=== PATIENT | female | born 1935 | race Caucasian/White ===

== ENCOUNTER 2018-04-25 15:07 | Outpatient (RCR) | payer MEDICARE, SELFPAY ==
[2018-04-25 16:22] LABS: International Normalized Ratio 2.1; Prothrombin Time (Protime)PT. 23.4 SECONDS (11.7-14.9)
== END 2018-04-25 16:00 | disposition home or self-care (01) ==
LOC: LAB 15:07
PROVIDERS: Family Provider Family Medicine; PCP Family Medicine; Visit Provider Internal Medicine Cardiovascular Disease
DX: I48.2 Chronic atrial fibrillation (principal); Z79.01 Long term (current) use of anticoagulants
CPT/HCPCS: 36415; 85610

== ENCOUNTER 2018-09-08 09:36 | Emergency (ER) | payer MEDICARE, SELFPAY ==
[2018-09-08 09:38] VITALS: BP 161/72; PULSE 54; RESP 16; TEMP 36.6; O2SAT 97; BMI 25.8
--- NOTE | 2018-09-08 09:55 | VDLE_ITS ---
Reason For Study: LEG PAIN AND SWELLING RIGHT LEFT GSV is normal. GSV is normal. CFV is compressible, spontaneous, phasic, CFV is compressible, spontaneous, phasic, competent and demonstrates normal competent, and demonstrates normal augmentation. augmentation. FV is compressible, spontaneous, phasic, FV is compressible, spontaneous, phasic, competent and demonstrates normal competent and demonstrates normal augmentation. augmentation. POP V is compressible, spontaneous, phasic, POP V is compressible, spontaneous, phasic, competent and demonstrates normal competent and demonstrates normal augmentation. augmentation. T/P Trunk is compressible. T/P Trunk is compressible. PTV is compressible. PTV is compressible. RT PerV is compressible. LT PerV is compressible. Procedure Exam performed portable in ED. A preliminary report was called and/or faxed to Dr. Wooten. Interpretation Summary Deep veins of the lower extremities are bilaterally patent and compressible segmentally. There is no evidence of deep vein thrombosis on either side. Valvular competence appears intact within the proximal deep venous systems bilaterally. The greater saphenous veins appear bilaterally patent and compressible segmentally. Ordering Physician: Phani Wooten Referring Physician: Patel Garcia Performed By: Digna Jensen RVT
--- NOTE | 2018-09-08 09:58 | RAD_ITS ---
STUDY: X-RAY - RIGHT KNEE REASON FOR EXAM: Female, 82 years old. Pain. No known injury. TECHNIQUE: 3 view(s) of the knee. COMPARISON: None. FINDINGS: There is demineralization of the visualized distal femur. There is demineralization of the tibia and fibula. Normal proximal tibiofibular articulation. There is mild degenerative arthrosis of the medial femorotibial compartment. Normal lateral femorotibial compartment. Degenerative spurring along the anterior superior aspect of the patella. There are atherosclerotic calcifications. RAD/Knee 3 Views IMPRESSION: Degenerative arthrosis. The mineralization of the femur and tibia. Electronically Signed: Jamie Terry MD at 10:20 EST Tel [phone], Service support ,
--- NOTE | 2018-09-08 10:00 | ED.DCSUM_ITS ---
- ER Visit Summary Date of Service: 09/08/18 Chief Complaint: Bilateral leg swelling, right medial knee pain History of Present Illness: The patient is a 82 F who presents with the above symptoms. For the past couple weeks she has noted that she has pain in the medial right knee. She has noticed more swelling of her lower legs. She states that she is making blankets for her grandchildren and sat in a stool for most of July but it did not give her any symptoms at that time. She has no history of DVT. She is currently on Coumadin for atrial fibrillation. She denies any trauma. Physical Examination: Vital signs reviewed. Bilateral leg exam reveals symmetrical swelling. There is tenderness palpation of the medial right knee. There is no ecchymosis. No tenderness along the deep venous system. She has 2+ DP pulses. She has full range of motion with pain. Test Results: Bilateral leg ultrasound negative for DVT. Right knee x-ray reveals chronic changes Emergency Department Course and Treatment: Patient has no DVT. No fractures. She will need to use ice, heat and NSAIDs at home. She will continue her Coumadin and will follow up with her PCP. Treatment Plan: [] Disposition: Discharge Impression: Right knee pain, pedal edema This note was generated with [employer] dictation software. It may contain incorrect words, spelling, and punctuation that were not noted in review of the chart prior to signing ED Disposition - Plan for ED Patient: Chief Complaint: Lower Extremity Injury Referrals: Patel Garcia MD [Primary Care Provider] -
--- NOTE | 2018-09-08 10:39 | ED.DEP ---
ED Disposition - Plan for ED Patient: Disposition: Home or Assisted Living Chief Complaint: Lower Extremity Injury Instructions: ED Leg Swelling Unilateral Referrals: Patel Garcia MD [Primary Care Provider] -
[2018-09-08 10:47] VITALS: BP 113/77; PULSE 62; RESP 15; O2SAT 98
== END 2018-09-08 10:48 | disposition home or self-care (01) ==
PROVIDERS: Emergency Provider Emergency Medicine; Family Provider Family Medicine; PCP Family Medicine
DX: R60.0 Localized edema (principal); M25.561 Pain in right knee; I48.91 Unspecified atrial fibrillation; J44.9 Chronic obstructive pulmonary disease, unspecified; I10 Essential (primary) hypertension; Z79.01 Long term (current) use of anticoagulants; Z79.51 Long term (current) use of inhaled steroids; Z79.899 Other long term (current) drug therapy
CPT/HCPCS: 73562; 93970; 99282

== ENCOUNTER 2018-11-25 09:58 | Emergency (ER) | payer MEDICARE, SELFPAY ==
[2018-11-25 09:59] VITALS: BP 148/71; PULSE 70; RESP 20; TEMP 38.3; O2SAT 93; BMI 27.3
--- NOTE | 2018-11-25 10:16 | RAD_ITS ---
STUDY: X-RAY CHEST REASON FOR EXAM: Female, 82 years old. Fever. Productive cough TECHNIQUE: Frontal and lateral views of the chest. COMPARISON: None. FINDINGS: The lungs are clear and expanded. There is no demonstrated pleural abnormality. Normal size heart. Normal mediastinum and kwaku. Normal visualized pulmonary arteries. There is atherosclerotic calcification of the aortic arch with tortuosity. Normal visualized thoracic spine. There is degenerative osteoarthritis of the bilateral shoulders. There is no demonstrated abnormality of the visualized soft tissue structures of the upper abdomen. RAD/Chest PA and Lateral IMPRESSION: Degenerative changes, as described above. No demonstrated acute cardiopulmonary process. Electronically Signed: Davi Cervantes, at 11:19 EDT Tel , Service support ,
[2018-11-25 10:17] VITALS: O2SAT 93
--- NOTE | 2018-11-25 10:17 | ED.VIS.GEN ---
History of Present Illness Chief Complaint: Shortness of Breath Detail of Chief Complaint: Fever and productive cough Informant: Patient Onset: - - Onset last week Timing: Continuous Quality: Fever, runny nose and productive cough Location: Respiratory Current Severity: Mild Maximum Severity: Moderate Worsened by: Dyspnea with exertion Relieved by: Nothing Associated Symptoms: Bulging sensation and had, myalgias Narrative: Patient is an elderly woman with multiple medical problems who presents with respiratory symptoms started last week. She was seen by her primary care physician Dr. Patel Bird and prescribed dose of dexamethasone. She presents because of feeling worse and complaint of fever. She states her cough is productive of brown colored sputum. She does report runny nose. She does report mild discomfort in her head. She denies nausea, vomiting diarrhea. She denies dysuria, frequency, urgency or hematuria. She states she was immunized for the flu. 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 (2) COPD (chronic obstructive pulmonary disease) Status: Chronic (3) Chronic atrial fibrillation Status: Chronic (4) Hypertension Status: Chronic (5) Hypothyroidism Status: Chronic (6) Noncardiac pulmonary edema Status: Chronic (7) Nonrheumatic tricuspid (valve) insufficiency Status: Chronic Past Medical History - Allergies and Home Meds Allergies/Adverse Reactions: Allergies budesonide [From Symbicort] Allergy (Verified 11/25/18 10:03) Unknown diltiazem [From Cardizem] Allergy (Verified 11/25/18 10:03) Unknown formoterol [From Symbicort] Allergy (Verified 11/25/18 10:03) Unknown Primary Care Physician: Patel Garcia MD [Primary Care Provider] - Prior records reviewed: Yes Surgical History: noncontributory Lives: Alone Smoking Status: Never smoker Alcohol: None - Family History Maternal Family History: Family History (Last Reviewed 05/21/18 @ 13:47 by Kirti Richardson) Sister Hypertension Family History: Reports: No pertinent history Review of Systems ROS: - . She General: Reports: Chills, Fever, Malaise. Denies: Sweats Eyes: Denies: Visual changes - bilaterally, Blurred Vision - bilaterally, Diplopia ENT: Denies: Bilateral ear pain, Rhinorrhea, Sore throat Cardiovascular: Denies: Chest pain, Palpitations Respiratory: Reports: Dyspnea, Cough, Sputum, Dyspnea on exertion. Denies: Orthopnea, Paroxysmal nocturnal dyspnea Gastrointestinal: Denies: Abdominal pain, Nausea, Vomiting, Diarrhea, Melena, Hematochezia Genitourinary: Denies: Dysuria, Hematuria, Frequency Musculoskeletal: Reports: Myalgias, Arthralgias Skin: Denies: Rash, Wounds Neurological: Reports: Headache, Weakness - . Endocrine: Denies: Polyuria, Polydipsia - . Hematologic: Denies: Easy bruising, Easy bleeding Physical Exam Vital Signs/Narrative: Vital Signs Temp Pulse Resp BP Pulse Ox 11/25/18 09:59 101 F H 70 20 H 148/71 H 93 Inital Vital Signs reviewed: Yes General: Well nourished, Well developed, No Acute Distress Head: Normocephalic, Atraumatic Eyes: Perrl, EOMI ENT: Moist mucous membranes, No rhinorrhea Neck: Supple, Nontender Cardiovascular: Regular rate, Regular rhythm, No murmurs Respiratory: Rales - Noted bilaterally., Diminished, Decreased Air Movement Abdomen: Soft, Nontender, Nondistended, Normal bowel sounds, No masses. Negative for: Hepatomegaly, Splenomegaly Back: Nontender, Normal Inspection Extremities: Nontender, Edema - 1+ lower extremities and symmetric Skin: Normal color, No rash Neurological: Alert, Oriented x3, Cranial nerves II-XII grossly intact, Normal Strength, Normal Sensation Psychological: Normal affect, Normal Mood Diagnostic/Tx/Re-eval Chest X-Ray - ED: 2 View, Read by ED Physician, Unchanged, Normal, Heart, Bony Structures, No Acute Disease, Chronic Changes Impressions Chest X-Ray 11/25/18 10:16 IMPRESSION: Degenerative changes, as described above. No demonstrated acute cardiopulmonary process. Electronically Signed: Davi Cervantes, at 11:19 EDT Tel , Service support , 11/25/18 10:16 Chest PA and Lateral [RAD] Stat 11/25/18 10:35 Mucosa - Nose Influenza Types A,B Direct FA (LES) - Final Laboratory Results 11/25/18 11/25/18 11/25/18 10:30 10:30 10:30 WBC 13.3 H RBC 4.54 Hgb 14.6 Hct 45.7 MCV 100.7 H MCH 32.2 H MCHC 31.9 L RDW 13.6 RDW Differential 50.0 H Plt Count 234 MPV 11.0 Immature Gran % (Auto) 0.400 Neut % (Auto) 80.3 H Lymph % (Auto) 8.9 L [place] % (Auto) 9.4 Eos % (Auto) 0.8 Baso % (Auto) 0.2 Absolute Neuts (auto) 10.7 H Absolute Lymphs (auto) 1.18 Total Counted Not Reportable Sodium 138 Potassium 3.4 L Chloride 102 Carbon Dioxide 31.0 Anion Gap 5 BUN 15 Creatinine 0.87 Estim Creat Clear Calc 47.65 Est GFR (MDRD) Af Amer 79 Est GFR (MDRD) Non-Af 66 BUN/Creatinine Ratio 17.2 Glucose 91 Lactic Acid 1.1 Calcium 8.4 L Influenza swab was negative. - Rhythm Strip Rhythm Strip: Sinus Rhythm Rate: 84 Ectopy: None - Medical Decision Making Patient presents with respiratory symptoms. Since she is reporting brown colored sputum and there are abnormal auscultatory findings chest x-ray was obtained as well as blood work. Lactate was obtained. If lactate is elevated and there is a source will obtain blood cultures prior to administration of antibiotics. Because she has rhinorrhea, head discomfort myalgias arthralgias will obtain rapid flu screen. Patient walked from her room to the restroom which is approximately 10-15 feet. She desaturated to a pulse ox of 88floor %. Nurse stated she appeared winded Will initiate antibiotics. Since patient becomes hypoxic with walking will contact hospitalist for observation versus full admission to medical surgical floor. Patient informed she has oxygen at home and wears oxygen during the evening. Patient was instructed to wear oxygen if she does any type of activity at home. Antibiotic was changed from IV levofloxacin to p.o. doxycycline. She was and instructed to follow-up with her primary care physician in 2-3 days. ED Disposition - Plan for ED Patient: Disposition: Home or Assisted Living Diagnosis: COPD (chronic obstructive pulmonary disease), snf (current) use of anticoagulants, Chronic atrial fibrillation, Hypertension Instructions: ED Pneumonia Adult Prescriptions: Doxycycline 100 mg PO BID #14 capsule Referrals: Patel Garcia MD [Primary Care Provider] - 3-5 Days
[2018-11-25 10:21] VITALS: BP 150/65; PULSE 66; RESP 18; TEMP 38.3; O2SAT 89
[2018-11-25 10:46] LABS: Absolute Lymphocyte Count 1.18 X10^3/ul (0.83-4.51); Absolute Neutrophil Count 10.7 X10^3/uL (2.0-7.7); Basophil# 0.02 X10^3/uL; Basophil% 0.2 % (0-1); Eosinophils% 0.8 % (0-5); Hematocrit 45.7 % (37-47); Hemoglobin 14.6 g/dl (12.0-15.0); Lymphocyte # 1.18 X10^3/ul (4.0); Lymphocyte % 8.9 % (19-41); Mean Corp Hgb Conc 31.9 g/gl (32-36); Mean Corpuscular Hgb 32.2 pg (27.0-32.0); Mean Corpuscular Volume 100.7 fL (81-99); Monocyte# 1.25 X10^3/uL; Monocyte% 9.4 % (0-10); Neutrophil # 10.72 X10^3/uL (2.7-7.7); Neutrophil % 80.3 % (47-70); POSITIVE COUNT NO; POSITIVE DIFFERENTIAL NO; POSITIVE MORPHOLOGY NO; Platelet Count 234 K/mm3 (150-450); RBC Distribution Width CV 13.6 % (11.6-14.6); Red Blood Count 4.54 M/mm3 (4.2-5.4); White Blood Count 13.3 K/mm3 (4.4-11.0)
[2018-11-25 11:00] LABS: Anion Gap 5 (5-15); BUN 15 mg/dL (7-18); BUN/Creat Ratio 17.2 RATIO (10-20); Calcium,Total 8.4 mg/dL (8.5-10.1); Chloride 102 mmol/L (98-107); Creatinine, Serum 0.87 mg/dL (0.55-1.02); EST Glomerular Filtration Rate 66 mL/min (>60); Est Glom Filt Rate - Afr Amer 79 mL/min (>60); Estimated Creatinine Clearance 47.65 ml/min; Glucose 91 mg/dL (74-106); Potassium 3.4 mmol/L (3.5-5.1); Sodium Level 138 mmol/L (136-145)
[2018-11-25 11:08] LABS: Lactic Acid 1.1 mmol/L (0.4-2.0)
[2018-11-25 11:15] VITALS: O2SAT 94
[2018-11-25] MEDS: Doxycycline 100 MG CAPSULE PO (11:39)
[2018-11-25 11:40] VITALS: BP 136/80; PULSE 64; RESP 18; O2SAT 94
--- NOTE | 2018-11-25 11:53 | CM.ED ---
Social Work Note Discussed case with physician who would like SW to discuss HHC with pt to see if she is interested. Face to face with pt and family and introduced self and role at [facility]. Pt reports that she is already established with [facility] and has a visit on Saturday. Physician updated and pt to be discharged from [facility] ED this date. PLAN: Return home with support of family. COLEEN Bishop, MOOSE
== END 2018-11-25 11:52 | disposition home or self-care (01) ==
PROVIDERS: Emergency Provider Emergency Medicine; Family Provider Family Medicine; PCP Family Medicine
DX: J44.9 Chronic obstructive pulmonary disease, unspecified (principal); I10 Essential (primary) hypertension; I48.2 Chronic atrial fibrillation; E03.9 Hypothyroidism, unspecified; Z79.01 Long term (current) use of anticoagulants; Z79.51 Long term (current) use of inhaled steroids; Z79.899 Other long term (current) drug therapy
CPT/HCPCS: 71046; 80048; 83605; 85025; 87804; 99285; A4216

== ENCOUNTER → 2019-03-24 | Outpatient (CLI) | payer MEDICARE, SELFPAY ==
[2019-03-24 12:31] LABS: Absolute Lymphocyte Count 1.46 X10^3/uL (0.83-4.51); Absolute Neutrophil Count 3.1 X10^3/uL (2.0-7.7); Basophil# 0.02 X10^3/uL; Basophil% 0.4 % (0-1); Eosinophil# 0.17 X10^3/uL; Eosinophils% 3.3 % (0-5); Hematocrit 43.2 % (37-47); Hemoglobin 13.8 g/dL (12.0-15.0); Lymphocyte # 1.46 X10^3/ul (4.0); Mean Corp Hgb Conc 31.9 g/dL (32-36); Mean Corpuscular Hgb 31.3 pg (27.0-32.0); Mean Platelet Vol. 11.5 fl (6.2-12.0); Monocyte# 0.47 X10^3/uL; NRBC Flagged by Analyzer 0 % (0-5); Neutrophil # 3.09 X10^3/uL (2.7-7.7); Neutrophil % 59.1 % (47-70); Platelet Count 200 K/mm3 (150-450); RBC Distribution Width CV 13.6 % (11.6-14.6); RBC Distribution Width SD 49.7 fl (35.1-43.9); Red Blood Count 4.41 M/mm3 (4.2-5.4); White Blood Count 5.2 K/mm3 (4.4-11.0)
[2019-03-24 12:47] LABS: Vitamin B12 1861 pg/mL (211-911); Vitamin D,25 Hydroxy 44.1 ng/mL (29.95-100.01)
[2019-03-24 12:49] LABS: ALB/GLOB Ratio 1.1 RATIO (0.9-2.4); AST(SGOT) 19 U/L (15-37); Alanine Aminotransfer ALT/SGPT 20 U/L (13-56); Albumin, Serum 3.6 g/dL (3.2-5.0); Alkaline Phosphatase 78 U/L (45-117); Anion Gap 6 (5-15); BUN 10 mg/dL (7-18); BUN/Creat Ratio 11.6 RATIO (10-20); Calcium,Total 8.6 mg/dL (8.5-10.1); Chloride 106 mmol/L (98-107); Creatinine, Serum 0.86 mg/dL (0.55-1.02); EST Glomerular Filtration Rate 67 mL/min (>60); Est Glom Filt Rate - Afr Amer 81 mL/min (>60); Globulin 3.4 g/dL (2.2-4.2); Glucose 76 mg/dL (74-106); Magnesium 2.1 mg/dL (1.6-2.6); Potassium 3.4 mmol/L (3.5-5.1); Sodium Level 145 mmol/L (136-145); T4 Free Direct 1.66 ng/dL (0.76-1.46); Thyroid Stim Hormone (TSH) 2.93 uIU/mL (0.358-3.74)
== END | disposition home or self-care (01) ==
LOC: BFHLAB 10:42
PROVIDERS: Family Provider Family Medicine; PCP Family Medicine; Visit Provider Family Medicine
DX: I48.91 Unspecified atrial fibrillation (principal); E03.9 Hypothyroidism, unspecified; E53.8 Deficiency of other specified B group vitamins; E55.9 Vitamin D deficiency, unspecified
CPT/HCPCS: 36415; 80053; 82306; 82607; 83735; 84439; 84443; 85025

== ENCOUNTER → 2019-06-22 | Outpatient (CLI) | payer MEDICARE, SELFPAY ==
[2019-06-22 12:37] LABS: Absolute Lymphocyte Count 1.15 X10^3/uL (0.83-4.51); Absolute Neutrophil Count 2.9 X10^3/uL (2.0-7.7); Basophil# 0.02 X10^3/uL; Basophil% 0.4 % (0-1); Eosinophil# 0.18 X10^3/uL; Eosinophils% 3.9 % (0-5); Hematocrit 39.5 % (37-47); Hemoglobin 12.6 g/dL (12.0-15.0); Lymphocyte # 1.15 X10^3/ul (4.0); Lymphocyte % 24.8 % (19-41); Mean Corp Hgb Conc 31.9 g/dL (32-36); Mean Corpuscular Hgb 32.2 pg (27.0-32.0); Mean Platelet Vol. 11.8 fl (6.2-12.0); Monocyte# 0.42 X10^3/uL; Monocyte% 9.1 % (0-10); NRBC Flagged by Analyzer 0 % (0-5); Neutrophil # 2.85 X10^3/uL (2.7-7.7); Neutrophil % 61.6 % (47-70); Platelet Count 196 K/mm3 (150-450); RBC Distribution Width CV 14.5 % (11.6-14.6); RBC Distribution Width SD 53.6 fl (35.1-43.9); Red Blood Count 3.91 M/mm3 (4.2-5.4); White Blood Count 4.6 K/mm3 (4.4-11.0)
[2019-06-22 12:52] LABS: Anion Gap 4 (5-15); BUN 13 mg/dL (7-18); BUN/Creat Ratio 13.8 RATIO (10-20); Calcium,Total 8.8 mg/dL (8.5-10.1); Chloride 105 mmol/L (98-107); Creatinine, Serum 0.94 mg/dL (0.55-1.02); EST Glomerular Filtration Rate 60 mL/min (>60); Est Glom Filt Rate - Afr Amer 73 mL/min (>60); Glucose 83 mg/dL (74-106); Potassium 3.9 mmol/L (3.5-5.1); Sodium Level 141 mmol/L (136-145); T4 Free Direct 1.53 ng/dL (0.76-1.46); Thyroid Stim Hormone (TSH) 2.77 uIU/mL (0.358-3.74)
[2019-06-22 13:37] LABS: Vitamin B12 986 pg/mL (211-911); Vitamin D,25 Hydroxy 46.5 ng/mL (29.95-100.01)
== END | disposition home or self-care (01) ==
PROVIDERS: Family Provider Family Medicine; PCP Family Medicine; Visit Provider Family Medicine
DX: I48.91 Unspecified atrial fibrillation (principal); E03.9 Hypothyroidism, unspecified; E53.8 Deficiency of other specified B group vitamins; E55.9 Vitamin D deficiency, unspecified; D64.9 Anemia, unspecified
CPT/HCPCS: 36415; 80048; 82306; 82607; 83735; 84439; 84443; 85025

== ENCOUNTER 2020-01-06 11:50 | Inpatient (IN) | payer MEDICARE, SELFPAY ==
[2020-01-06] VITALS (11 sets, daily range): BP systolic 107–168; BP diastolic 49–72; PULSE 57–80; RESP 18–24; TEMP 36.5–37.1; O2SAT 80–97; BMI 25.8; BMI 25.4; BMI 25.5
--- NOTE | 2020-01-06 11:57 | RAD_ITS ---
STUDY: X-RAY - PELVIS AND LEFT HIP REASON FOR EXAM: Female, 84 years old. FALL. HIP PAIN TECHNIQUE: 3 views of the pelvis and hip. COMPARISON: Separate 22,013 reported. FINDINGS: Acute minimally displaced left subcapital femoral neck fracture. No acute dislocation. No acute bone destruction. Uncomplicated right hip fixation hardware. Osteopenia/osteoporosis. Mild osteoarthritic features at the right hip, pubic symphysis, sacral iliac joints and lumbar spine. Normal bowel gas pattern. No significant soft tissue swelling. Vascular calcifications. RAD/HIP, UNI W/ Pelvis 2-3 Views IMPRESSION: Acute minimally displaced left subcapital femoral neck fracture Degenerative/postsurgical changes, as above Electronically Signed: Leo Alcocer DO at 12:54 EDT Tel , Service support ,
--- NOTE | 2020-01-06 11:57 | RAD_ITS ---
STUDY: X-RAY CHEST REASON FOR EXAM: Female, 84 years old. FALL, HIP FX TECHNIQUE: Single AP portable view of the chest. COMPARISON: November 25, 2018. FINDINGS: Cardiomegaly. Pulmonary vascularity unremarkable. Aorta calcified. No focal patchy airspace opacities. No pleural effusions. COPD. Coarse lung markings. Upper abdomen unremarkable. Osseous structures demineralized with degenerative findings. No pneumothorax. RAD/Chest 1 View IMPRESSION: No acute cardiopulmonary findings Electronically Signed: Leo Alcocer DO at 12:44 EDT Tel , Service support ,
--- NOTE | 2020-01-06 12:00 | ED.DCSUM_ITS ---
History of Present Illness Chief Complaint: Fall Informant: Patient, Orthopedically Impaired Teacher Onset: Today Narrative: Patient presents the emergency room via EMS for the evaluation of left hip injury. Patient reports that she was eating her breakfast and got up to walk and got her feet caught in her house coat. She states that she injured the left thigh and hip region. She denies any other injuries. History of COPD and wears home oxygen at night. She denies striking her head or having any neck back pain. No abdominal chest pain. EMS placed her in a vacuum splint gave supplemental oxygen and 25 programs of fentanyl and 4 mg of Zofran.. Past Medical History - Allergies and Home Meds Allergies/Adverse Reactions: Allergies budesonide [From Symbicort] Allergy (Verified 01/06/20 12:02) Unknown diltiazem [From Cardizem] Allergy (Verified 01/06/20 12:02) Unknown formoterol [From Symbicort] Allergy (Verified 01/06/20 12:02) Unknown Primary Care Physician: Patel Garcia MD [Primary Care Provider] - Surgical History: noncontributory Smoking Status: Never smoker - Family History Maternal Family History: Family History (Last Reviewed 05/21/18 @ 13:47 by Kirti Richardson) Sister Hypertension Family History: Reports: No pertinent history Review of Systems General: Denies: Chills, Fever, Sweats Eyes: Denies: Visual changes - bilaterally, Diplopia ENT: Denies: Rhinorrhea, Sore throat Cardiovascular: Denies: Chest pain, Palpitations Respiratory: Denies: Dyspnea, Cough, Dyspnea on exertion Gastrointestinal: Denies: Abdominal pain, Nausea, Vomiting, Diarrhea, Melena, Hematochezia Genitourinary: Denies: Dysuria, Hematuria, Frequency Musculoskeletal: Reports: Extremity Pain. Denies: Back pain Skin: Denies: Rash, Wounds Neurological: Denies: Headache, Weakness, Numbness Physical Exam Inital Vital Signs reviewed: Yes General: Well nourished, Well developed, No Acute Distress Head: Normocephalic, Atraumatic Eyes: Perrl, EOMI ENT: Moist mucous membranes, No rhinorrhea Neck: Supple, Nontender Cardiovascular: Regular rate, Regular rhythm, No murmurs Respiratory: No distress, CTA bilaterally, Chest nontender Abdomen: Soft, Nontender, Nondistended, Normal bowel sounds Back: Nontender, Normal Inspection Extremities: - - The left leg is shortened. There is tenderness mid thigh proximal. There is a good dorsalis pedis pulse. Skin: Normal color, No rash Neurological: Alert, Cranial nerves II-XII grossly intact, Normal Strength, Normal Sensation Psychological: Normal affect, Normal Mood Diagnostic/Tx/Re-eval - Medical Decision Making She received pain medication. X-rays reveal a left femoral neck fracture. Dr. Candelaria is on-call for orthopedics. The patient last saw orthopedics in [place] more than 10 years ago when she broke her right hip. Plan will be admission to the hospital for continued care. ED Disposition - Plan for ED Patient: Disposition: Acute Care Hospital [facility] Diagnosis: Fall at home, Fracture of femoral neck, left, closed, COPD (chronic obstructive pulmonary disease), Chronic atrial fibrillation Referrals: Patel Garcia MD [Primary Care Provider] -
[2020-01-06] MEDS: fentaNYL 100 MCG/2 ML Ampul 50 MCG IV (12:06)
--- NOTE | 2020-01-06 12:19 | EKG12_ITS ---
Test Reason : FALL Blood Pressure : / mmHG Vent. Rate : 060 BPM Atrial Rate : 060 BPM P-R Int : 290 ms QRS Dur : 096 ms QT Int : 478 ms P-R-T Axes : 096 025 058 degrees QTc Int : 478 ms Sinus rhythm with 1st degree A-V block Incomplete right bundle branch block Borderline ECG Confirmed by SHANE DELATORRE, DEBBIE ([id number]), supervising editor trailer HILARY MARTINEZ ([id number]) on 01/11/2020 2:13:57 PM Referred By: RUKHSANA Confirmed By:DEBBIE LYNN MD
[2020-01-06 13:00] LABS: Absolute Lymphocyte Count 1.46 X10^3/uL (0.83-4.51); Absolute Neutrophil Count 11.3 X10^3/uL (2.0-7.7); Basophil# 0.04 X10^3/uL; Basophil% 0.3 % (0-1); Eosinophil# 0.15 X10^3/uL; Eosinophils% 1.1 % (0-5); Hematocrit 43.8 % (37-47); Hemoglobin 13.9 g/dL (12.0-15.0); Lymphocyte # 1.46 X10^3/ul (4.0); Lymphocyte % 10.7 % (19-41); Mean Corp Hgb Conc 31.7 g/dL (32-36); Mean Corpuscular Volume 97.8 fL (81-99); Mean Platelet Vol. 11.9 fl (6.2-12.0); Monocyte# 0.57 X10^3/uL; Monocyte% 4.2 % (0-10); NRBC Flagged by Analyzer 0 % (0-5); Neutrophil # 11.25 X10^3/uL (2.7-7.7); Neutrophil % 82.3 % (47-70); Platelet Count 215 K/mm3 (150-450); RBC Distribution Width CV 13.9 % (11.6-14.6); RBC Distribution Width SD 50.2 fl (35.1-43.9); Red Blood Count 4.48 M/mm3 (4.2-5.4); White Blood Count 13.7 K/mm3 (4.4-11.0)
[2020-01-06 13:05] LABS: ALB/GLOB Ratio 0.9 RATIO (0.9-2.4); AST(SGOT) 26 U/L (15-37); Alanine Aminotransfer ALT/SGPT 21 U/L (13-56); Albumin, Serum 3.2 g/dL (3.2-5.0); Alkaline Phosphatase 69 U/L (45-117); Anion Gap 4 (5-15); BUN 10 mg/dL (7-18); BUN/Creat Ratio 11.3 RATIO (10-20); Calcium,Total 8.7 mg/dL (8.5-10.1); Chloride 106 mmol/L (98-107); Creatinine, Serum 0.88 mg/dL (0.55-1.02); EST Glomerular Filtration Rate 65 mL/min (>60); Est Glom Filt Rate - Afr Amer 78 mL/min (>60); Estimated Creatinine Clearance 43.75 ml/min; Globulin 3.5 g/dL (2.2-4.2); Glucose 92 mg/dL (74-106); Potassium 3.9 mmol/L (3.5-5.1); Protein, Total 6.7 g/dL (6.4-8.2); Sodium Level 143 mmol/L (136-145)
[2020-01-06 13:12] LABS: International Normalized Ratio 2.2; Prothrombin Time (Protime)PT. 23.7 SECONDS (11.7-14.9)
[2020-01-06 13:13] LABS: Partial Thromboplast Time 36.4 Seconds (24.1-36.2)
--- NOTE | 2020-01-06 13:13 | NURSING ---
MED SURG LEFT HIP FX PAINTSIL
[2020-01-06 13:24] LABS: Mucous, Urine 0 SEEN /hpf (<or=2+)
[2020-01-06] MEDS: Morphine 2 MG/ML Syringe IV ×2 (13:26→15:40)
--- NOTE | 2020-01-06 13:26 | PCM.HP.STD ---
Problem List (1) Fall at home Status: Acute Qualifiers: Encounter type: initial encounter Qualified Code(s): W19.XXXA - Unspecified fall, initial encounter; Y92.009 - Unspecified place in unspecified non-institutional (private) residence as the place of occurrence of the external cause (2) Fracture of femoral neck, left, closed Status: Acute Qualifiers: Encounter type: initial encounter Qualified Code(s): S72.002A - Fracture of unspecified part of neck of left femur, initial encounter for closed fracture (3) [facility] (current) use of anticoagulants Status: Acute (4) Chronic atrial fibrillation Status: Chronic (5) Hypertension Status: Chronic Qualifiers: Hypertension type: essential hypertension Qualified Code(s): I10 - Essential (primary) hypertension (6) COPD (chronic obstructive pulmonary disease) Status: Chronic Qualifiers: Emphysema type: unspecified (7) Hypothyroidism Status: Chronic Qualifiers: Hypothyroidism type: unspecified Qualified Code(s): E03.9 - Hypothyroidism, unspecified History of Present Illness Date of Admission: 01/06/20 Chief Complaint: Fall, left hip pain - 1 day The patient is a 84 year old F with PMhx of chronic atrial fibrillation, Hypertension, Hypothyroidism, osteoporosis who comes in after a fall. Patient was getting up from her desk this morning and her foot got caught on her robe and she tripped and fell Past Medical History Past Medical History (Chronic Problems): Chronic Problems (Last Reviewed 05/21/18 @ 13:47 by Kirti Richardson) Chronic atrial fibrillation (Chronic) Hypertension (Chronic) Other secondary pulmonary hypertension (Chronic) Nonrheumatic tricuspid (valve) insufficiency (Chronic) Premature atrial contractions (Chronic) Noncardiac pulmonary edema (Chronic) COPD (chronic obstructive pulmonary disease) (Chronic) Hypothyroidism (Chronic) Medical History: Medical History (Last Reviewed 05/21/18 @ 13:47 by Kirti Richardson) Chronic atrial fibrillation (Chronic) I48.2 Hypertension (Chronic) I10 Other secondary pulmonary hypertension (Chronic) I27.29 Nonrheumatic tricuspid (valve) insufficiency (Chronic) I36.1 Premature atrial contractions (Chronic) I49.1 Noncardiac pulmonary edema (Chronic) J81.1 COPD (chronic obstructive pulmonary disease) (Chronic) J44.9 Hypothyroidism (Chronic) E03.9 Osteoporosis M81.0 Asthma J45.909 Community acquired pneumonia (Resolved) J18.9 Hypoxia (Resolved) R09.02 Allergies budesonide [From Symbicort] Allergy (Verified 01/06/20 12:02) Unknown diltiazem [From Cardizem] Allergy (Verified 01/06/20 12:02) Unknown formoterol [From Symbicort] Allergy (Verified 01/06/20 12:02) Unknown Home Medications: Ambulatory Orders Medication Instructions Recorded Albuterol Aerosols [Ventolin 2.5 mg INHALATION Q4HWA.RT 10/11/16 Aerosols] Amiodarone HCl [Pacerone] 200 mg PO DAILY 01/06/20 Cholecalciferol (VIT D3) [Vitamin 3,000 unit PO QHS 01/06/20 D] Levothyroxine Sodium [Synthroid] 25 mcg PO QHS 01/06/20 Metoprolol Tartrate [Lopressor 25 mg PO BID 01/06/20 (beta yudi)] Warfarin Sodium [Coumadin] 2.5 mg PO DAILY 01/06/20 Surgical History: Surgical History (Last Reviewed 05/21/18 @ 13:47 by Kirti Richardson) History of cholecystectomy Z90.49 History of tonsillectomy Z90.89 Surgical History: cholecystectomy, total hip arthroplasty - right, tonsillectomy Psychiatric History: No pertinent psych hx 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 Lives: Alone Smoking Status: Never smoker Tobacco Use: Non-smoker Alcohol: None Drugs: None - *Family History Maternal Family History: Family History (Last Reviewed 05/21/18 @ 13:47 by Kirti Richardson) Sister Hypertension History Items: No pertinent history Paternal Family History: Family History (Last Reviewed 05/21/18 @ 13:47 by Kirti Richardson) Sister Hypertension History Items: Heart Disease Review of Systems Unable to obtain accurate/complete ROS d/t: unable to reliable, get history of dementia VTE Information - Inpt Only VTE Present on Admission: No VTE Pharm Prophylaxis ordered?: Yes Patient Problems: Active and Suspected Problems (Last Reviewed 05/21/18 @ 13:47 by Kirti Richardson) Fall at home (Acute) Fracture of femoral neck, left, closed (Acute) - Physical Exam Vitals/I&O's: Vital Signs Temp Pulse Resp BP Pulse Ox 97.7 F L 67 18 153/67 H 80 01/06/20 11:52 01/06/20 11:52 01/06/20 11:52 01/06/20 11:52 01/06/20 11:52 Oxygen Flow Rate (L/min) 2 Oxygen Delivery Method Nasal Cannula Weight: 72.575 kg Body Mass Index (BMI) 25.8 General: Alert, Oriented x3, Cooperative, No apparent distress HEENT: Atraumatic, PERRLA, EOMI, Normocephalic Oral: Moist Mucosa Neck: Supple Lungs: Clear to auscultation, Normal air movement Cardiovascular: Regular rate, Regular Rhythm, Normal S1, Normal S2, No murmurs Abdomen: Bowel Sounds Present, Soft, Non Tender, Non-Distended, No Hepato-splenomegaly Extremities: No edema Skin: No rashes Musculoskeletal: No Tenderness to Palpation of Joints or Extremities Lymphatic: No Cervical, Supraclavicular, or Inguinal Adenopathy Neurological: Cranial nerves II-XII grossly intact, Neuro grossly intact Psych/Mental Status: Normal Affect, Appropriate Laboratory Results 01/06/20 12:35: WBC 13.7 H, RBC 4.48, Hgb 13.9, Hct 43.8, MCV 97.8, MCH 31.0, MCHC 31.7 L, RDW Std Deviation 50.2 H, RDW Coeff of Concepcion 13.9, Plt Count 215, MPV 11.9, Immature Gran % (Auto) 1.400 H, Neut % (Auto) 82.3 H, Lymph % (Auto) 10.7 L, Humphreys % (Auto) 4.2, Eos % (Auto) 1.1, Baso % (Auto) 0.3, Absolute Neuts (auto) 11.3 H, Absolute Lymphs (auto) 1.46, Nucleated RBC % 0 01/06/20 12:35: PT 23.7 H, INR 2.2, APTT 36.4 H 01/06/20 12:35: Sodium 143, Potassium 3.9, Chloride 106, Carbon Dioxide 33.0 H, Anion Gap 4 L, BUN 10, Creatinine 0.88, Estim Creat Clear Calc 43.75, Est GFR (MDRD) Af Amer 78, Est GFR (MDRD) Non-Af 65, BUN/Creatinine Ratio 11.3, Glucose 92, Calcium 8.7, Total Bilirubin 0.90, AST 26, ALT 21, Alkaline Phosphatase 69, Total Protein 6.7, Albumin 3.2, Globulin 3.5, Albumin/Globulin Ratio 0.9 01/06/20 12:35: Blood Type Pending, Antibody Screen Pending 01/06/20 13:15: Urine Color Pending, Urine Clarity Pending, Urine pH Pending, Ur Specific Beaman Pending, Urine Protein Pending, Urine Glucose (UA) Pending, Urine Ketones Pending, Urine Occult Blood Pending, Urine Nitrite Pending, Urine Bilirubin Pending, Urine Urobilinogen Pending, Ur Leukocyte Esterase Pending, Urine RBC Pending, Urine WBC Pending, Ur Squamous Epith Cells Pending, Urine Bacteria Pending, Urine Mucus Pending Current Medications Morphine Sulfate () 2 mg IV X1 PRN PRN Reason: pain Assessment/Plan All Active Problems (Last Reviewed 05/21/18 @ 13:47 by Kirti Richardson) Fall at home (Acute) Fracture of femoral neck, left, closed (Acute) 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 Acute left subcapital femoral neck fracture secondary to mechanical fall H/o osteoporosis Patient tripped on her bathroom; pain is fairly controlled Orthopedic surgery consulted ACS NSQIP score is below average( see paper chart) 2. Hypercoagulable state secondary to warfarin administration INR on admission was 2.2, status post vitamin K Coumadin on hold Repeat INR planned for 9 PM and also in a.m. 3. Hypoxia likely secondary to atelectasis/effect of narcotic medications Admitting chest x-ray shows no acute abnormality Currently on nonrebreather oxygen Wean off for SPO2 more than 92% 4. Chronic atrial fibrillation, in NSR now, INR 2.2, Continue on metoprolol, amiodarone 5. Hypertension, controlled, continue on metoprolol 6. Hypothyroidism, on levothyroxine 7. Osteoporosis, not on treatment, would need to be worked out in the outpatient 8. Cognitive impairment, no formal diagnosis of dementia 9. DVT prophylaxis - INR is therapeutic 10. CODE STATUS -DNR CCA Discussed in detail with the patient's daughter/next of kin, Marimar Morel explaining the various types of CODE STATUS-full code, DNR CCA, DNR CC. She stated that patient would not want to remain in vegetative state and will prefer DNR CCA. She is okay with patient being intubated for the planned hip repair. Time spent discussing CODE STATUS 18 minutes Inpatient E&M: 02607 Init Hosp L3 Procedures: 57703 Advncd Care Plan 30 Min
--- NOTE | 2020-01-06 13:35 | ED.RN ---
talked with daughter. updated her on pt condition and plan for surgery possibly tomorrow
[2020-01-06 13:36] LABS: Color, Urine Yellow (Yellow); Glucose, Dipstick Normal (Normal); Ketone-Dipstick Negative (Negative); Leukocyte Esterase-Dipstick 100 /ul (Negative); Nitrite-Dipstick Negative (Negative); Occult Blood-Urine 10 /ul (Negative); Protein-Dipstick Negative (Negative); Urine Bilirubin Dipstick Negative (Negative); Urine Clarity Sl. Cloudy (Clear); Urine Urobilinogen Normal (Normal)
[2020-01-06 13:47] LABS: Bacteria 1+ /hpf (None Seen); Red Blood Cells-Urine 0-5 SEEN /hpf (0-5); Squamous Epithelial Cells - UA 0-5 SEEN /hpf (5-10); White Blood Cells 10-25 SEEN /hpf (0-5)
[2020-01-06] MEDS: 0.9% Saline Lock 10 ML Syringe IV (15:40)
--- NOTE | 2020-01-06 15:46 | NURSING ---
[place] traction applied 7 lbs.
[2020-01-06 16:30] LABS: Bedside Glucose 103 mg/dL (70-110)
--- NOTE | 2020-01-06 16:43 | NURSING ---
Charge nurse Isabelle MALONE and Evelyne REGAN notified, pox is 78% on 5 L, not sure if that is an accurate reading, pt has a sensor on earlobe but do not have equipment to get a reading for the earlobe sensor. Evelyne said she would contact Raúl who has this floor. Pt is cold but not as cold as she had been when she arrived. She was given 3 warm blankets, one for each arm and one for the body.
[2020-01-06] MEDS: Phytonadione (Vit K1) 5 MG TABLET PO (16:48)
--- NOTE | 2020-01-06 16:56 | NURSING ---
Raúl in room, checking things out and placed her on a nonrebreather mask at 100%.
[2020-01-06] MEDS: Albuterol 2.5 MG/3 ML VIAL.NEB. INHALATION (19:06)
[2020-01-06] MEDS: Acetaminophen 500 MG Tablet 1000 MG PO (21:24)
[2020-01-06 21:35] LABS: International Normalized Ratio 2.2; Prothrombin Time (Protime)PT. 23.7 SECONDS (11.7-14.9)
[2020-01-06 21:38] LABS: D-Dimer Quantitative (DVT/PE) > 20.00 FEU/ug/m (0.27-0.49)
--- NOTE | 2020-01-06 21:47 | CT_ITS ---
STUDY: CTA CHEST REASON FOR EXAM: Female, 84 years old. 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 Post-processing of the angiographic images was performed, with multiplanar reformation and 3D reconstruction. Individualized dose optimization techniques were used for this CT. COMPARISON: Chest x-ray dated January 06, 2020 FINDINGS: The lungs are hyperinflated with cystic emphysematous changes. Diffuse groundglass edema is present throughout both lungs. Small bilateral pleural effusions are also present with minimal dependent atelectasis. Some interstitial thickening and scarring is present primarily in the lateral lung bases. Some chronic appearing pleural parenchymal scarring is present in the bilateral posterior aspects of both lungs. No focal consolidation or air bronchograms. A few pleural plaques are also present bilaterally. Normal enhancement of the main pulmonary artery and right and left pulmonary arteries. Normal enhancement of the bilateral peripheral pulmonary arteries. There is no demonstrated pulmonary embolism. There is atherosclerotic calcification of the aortic arch with tortuosity. There is no demonstrated aortic dissection. Normal heart size and pericardium. Normal mediastinum. Normal hilar regions. Normal visualized trachea and bronchi. Normal chest wall structures. There are degenerative changes of thoracic spine. No demonstrated acute or significant process in the upper abdomen. A small simple cyst is present in the midpole of the right kidney. CT/CTA Chest W/WO Contrast IMPRESSION: 1. The lungs are hyperinflated with cystic emphysematous changes. 2. Diffuse groundglass edema is present throughout both lungs. 3. Small bilateral pleural effusions are also present with minimal dependent atelectasis. 4. Some interstitial thickening and scarring is present primarily in the lateral lung bases. Some chronic appearing pleural parenchymal scarring is present in the bilateral posterior aspects of both lungs. 5. No focal consolidation or air bronchograms. 6. A few pleural plaques are also present bilaterally. 7. No demonstrated pulmonary embolism or arterial dissection. Electronically Signed: Tyrone Kirby MD at 23:43 EDT , Service support ,
--- NOTE | 2020-01-06 22:33 | NURSING ---
Talked to respiratory therapist. He said ABGs were obtained and results shared with Dr. Conn. He has just not entered them into the computer manually yet. States they were pretty normal.
--- NOTE | 2020-01-06 22:43 | NURSING ---
Respiratory therapist titrated oxygen to 50% venti mask. WHALE TRAINER taking pt to CT scan. Unable to do it sooner since she was busy with another pt. Called CT scan and they are still OK to receive pt.
[2020-01-06 23:10] LABS: Bedside Glucose 148 mg/dL (70-110)
[2020-01-06 23:13] LABS: Blood Gas Specimen Type ART
[2020-01-06 23:14] LABS: Allen Test POS; O2 Delivery Device NRB Mask; SITE R RADIAL; Time Given 1940; pH 7.36 (7.35-7.45)
[2020-01-06 23:15] LABS: Base Excess 4 mmol/L (-2 to +2); Bicarbonate 29.6 mmol/L (22-26); PO2 64 mmHG (75-100); SO2 91 % (95-99); Total Carbon Dioxide 31 mmol/L
[2020-01-07] VITALS (21 sets, daily range): BP systolic 106–154; BP diastolic 45–76; PULSE 60–86; RESP 14–75; TEMP 36.6–37.6; O2SAT 90–100; BMI 25.0; BMI 25.5
--- NOTE | 2020-01-07 00:10 | PN_ITS ---
Progress Note CTPA showed interstitial edema. Patient is on Venturi mask. Will give a one- time dose of Lasix 40 mg IV push x1. Concern is that patient's had just received IV contrast and is at risk for kidney injury. STROKE Vital Signs/Narrative: Vital Signs Temp Pulse Resp BP Pulse Ox 01/06/20 22:25 93 01/06/20 21:22 64 107/49 L 01/06/20 21:09 98.8 F 64 20 H 107/49 L 94
[2020-01-07] MEDS: Furosemide 40 MG/4 ML Vial IV ×3 (00:38→20:01)
[2020-01-07] MEDS: 0.9% Saline Lock 10 ML Syringe IV ×3 (00:38→09:29)
--- NOTE | 2020-01-07 01:56 | NURSING ---
notified lab that pt's labs need to be drawn at 0400
[2020-01-07 04:40] LABS: Absolute Lymphocyte Count 1.32 X10^3/uL (0.83-4.51); Absolute Neutrophil Count 12.8 X10^3/uL (2.0-7.7); Basophil# 0.04 X10^3/uL; Basophil% 0.3 % (0-1); Eosinophil# 0.25 X10^3/uL; Eosinophils% 1.7 % (0-5); Hematocrit 40.4 % (37-47); Lymphocyte # 1.32 X10^3/ul (4.0); Lymphocyte % 8.8 % (19-41); Mean Corp Hgb Conc 32.2 g/dL (32-36); Mean Corpuscular Hgb 31.3 pg (27.0-32.0); Mean Corpuscular Volume 97.1 fL (81-99); Mean Platelet Vol. 11.2 fl (6.2-12.0); Monocyte# 0.51 X10^3/uL; Monocyte% 3.4 % (0-10); NRBC Flagged by Analyzer 0 % (0-5); Neutrophil # 12.75 X10^3/uL (2.7-7.7); Neutrophil % 85.4 % (47-70); Platelet Count 167 K/mm3 (150-450); RBC Distribution Width CV 14.1 % (11.6-14.6); RBC Distribution Width SD 50.5 fl (35.1-43.9); Red Blood Count 4.16 M/mm3 (4.2-5.4); White Blood Count 14.9 K/mm3 (4.4-11.0)
[2020-01-07 04:51] LABS: International Normalized Ratio 2.1; Prothrombin Time (Protime)PT. 22.8 SECONDS (11.7-14.9)
[2020-01-07 05:27] LABS: ALB/GLOB Ratio 0.8 RATIO (0.9-2.4); AST(SGOT) 65 U/L (15-37); Alanine Aminotransfer ALT/SGPT 55 U/L (13-56); Albumin, Serum 2.5 g/dL (3.2-5.0); Alkaline Phosphatase 83 U/L (45-117); Anion Gap 4 (5-15); BUN 14 mg/dL (7-18); BUN/Creat Ratio 13.6 RATIO (10-20); Calcium,Total 8.2 mg/dL (8.5-10.1); Chloride 106 mmol/L (98-107); Creatinine, Serum 1.03 mg/dL (0.55-1.02); EST Glomerular Filtration Rate 54 mL/min (>60); Est Glom Filt Rate - Afr Amer 66 mL/min (>60); Estimated Creatinine Clearance 38.83 ml/min; Globulin 3.3 g/dL (2.2-4.2); Glucose 123 mg/dL (74-106); Potassium 4.1 mmol/L (3.5-5.1); Protein, Total 5.8 g/dL (6.4-8.2); Sodium Level 140 mmol/L (136-145); Thyroid Stim Hormone (TSH) 2.41 uIU/mL (0.358-3.74)
[2020-01-07 06:16] LABS: Bedside Glucose 95 mg/dL (70-110)
--- NOTE | 2020-01-07 07:03 | ECHOD_ITS ---
Reason For Study: Murmur Procedure This was a 2D Doppler, Color Flow transthoracic echocardiogram. The study was technically difficult. Patient scanned supine due to hip fracture. Exam performed portable in patient room. Left Ventricle Normal LV size. The estimated ejection fraction is 60 %. Diastolic function is indeterminate. No regional wall motion abnormalities noted. Right Ventricle Normal RV size. Normal systolic function. Atria The left atrium is mildly enlarged. The right atrium is mildly enlarged. No doppler evidence for ASD. Mitral Valve There is no mitral valve stenosis. No mitral valve insufficiency. Tricuspid Valve There is no tricuspid stenosis. Mild tricuspid valve insufficiency. Pulmonary artery systolic pressure is 60 mmHg. Moderate pulmonary hypertension. Aortic Valve Moderate diffuse aortic valve thickening. Mild aortic stenosis. No aortic valve insufficiency. Pulmonic Valve There is no pulmonic valvular stenosis. No pulmonic valve insufficiency. Great Vessels Normal aortic root. Pericardium/Pleural No pericardial effusion. MMode/2D Measurements & Calculations LVIDd: 3.5 cm IVSd: 0.90 cm LVOT diam: 1.9 cm LVIDs: 2.0 cm LVPWd: 0.90 cm LVOT area: 2.9 cm2 RVDd: 3.7 cm FS: 42.6 % Ao root diam: 3.0 cm LAV(MOD-bp): 42.1 ml LA A4 area: 21.6 cm2 LAV(MOD-bp) Indexed: 22.9 ml/m2 LAV(MOD-sp2): 19.0 ml LAV(MOD-sp4): 62.0 ml LA dimension(2D): 2.9 cm RA A4 area: 22.4 cm2 Doppler Measurements & Calculations MV A max oc: 81.2 cm/sec Lat Peak E' Oc: 8.3 cm/sec Med Peak E' Oc: 6.0 cm/sec Ao V2 max: 253.5 cm/sec LV V1 max: 99.3 cm/sec SV(LVOT): 59.9 ml Ao max P.7 mmHg LV V1 max P.9 mmHg Ao V2 mean: 165.2 cm/sec LV V1 mean P.2 mmHg Ao mean P.5 mmHg LV V1 mean: 71.2 cm/sec Ao V2 VTI: 44.3 cm LV V1 VTI: 20.7 cm TEODORA(I,D): 1.4 cm2 TEODORA(V,D): 1.1 cm2 PA V2 max: 102.2 cm/sec TR max oc: 360.0 cm/sec TR max P.8 mmHg Interpretation Summary The estimated ejection fraction is 60 %. Diastolic function is indeterminate. Mild tricuspid valve insufficiency. Pulmonary artery systolic pressure is 60 mmHg. Moderate pulmonary hypertension. Mild aortic stenosis. Ordering Physician: Samuel Adams Referring Physician: Patel Garcia Performed By: Cora Dunn, LINDA
--- NOTE | 2020-01-07 07:03 | PCM.CONS.PUL ---
Problem List (1) Fall at home Status: Acute Qualifiers: Encounter type: initial encounter Qualified Code(s): W19.XXXA - Unspecified fall, initial encounter; Y92.009 - Unspecified place in unspecified non-institutional (private) residence as the place of occurrence of the external cause (2) Fracture of femoral neck, left, closed Status: Acute Qualifiers: Encounter type: initial encounter Qualified Code(s): S72.002A - Fracture of unspecified part of neck of left femur, initial encounter for closed fracture (3) Chronic atrial fibrillation Status: Chronic (4) Hypertension Status: Chronic Qualifiers: Hypertension type: essential hypertension Qualified Code(s): I10 - Essential (primary) hypertension (5) Other secondary pulmonary hypertension Status: Chronic (6) Nonrheumatic tricuspid (valve) insufficiency Status: Chronic (7) COPD (chronic obstructive pulmonary disease) Status: Chronic Qualifiers: Emphysema type: unspecified (8) Hypothyroidism Status: Chronic Qualifiers: Hypothyroidism type: unspecified Qualified Code(s): E03.9 - Hypothyroidism, unspecified Reason for Consult Date of Consultation: 01/07/20 Reason for Consultation: Hypoxia History of Present Illness: The patient is a 84 year old F, with past medical history listed below, who presented to [facility] on 01/06/2020 secondary to a fall. Patient reportedly had fallen at home after getting up to walk and getting her feet caught in her house coat. Patient reportedly fell on her left side injuring her left thigh and hip region. 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 Patient states she wears 3 L of oxygen with sleep, but does not require it during the day. In the ER, patient did receive some pain medication, but was reportedly hemodynamically stable. Patient had an x-ray showing a left femoral neck fracture. Patient does have a history of a right hip fracture approximately 10 years ago. Patient was admitted to the hospital for further evaluation. On arrival to the floor, patient was noted to be 80% on 2 L nasal cannula. Patient did have a leukocytosis and elevated INR. Patient was increased to a nonrebreather mask and had marginal saturations. Overnight, patient has remained on a Ventimask and did receive 40 mg of Lasix with good output. Patient has since been able to be weaned to 4 L nasal cannula. Patient is a very poor historian. Patient does carry a diagnosis of A. fib, but states that her heart problem is known as AARP and she feels it is well controlled. Patient is unclear if she has had any cardiac work-up recently. Patient is unaware of any murmurs. Patient reportedly does take Coumadin, Lopressor and amiodarone at home. Patient states she does not use albuterol consistently. Patient is unable to provide a reliable review of systems at this time. Past Medical History Past Medical History (Chronic Problems): Chronic Problems (Last Reviewed 05/21/18 @ 13:47 by Kirti Richardson) Chronic atrial fibrillation (Chronic) Hypertension (Chronic) Other secondary pulmonary hypertension (Chronic) Nonrheumatic tricuspid (valve) insufficiency (Chronic) Premature atrial contractions (Chronic) Noncardiac pulmonary edema (Chronic) COPD (chronic obstructive pulmonary disease) (Chronic) Hypothyroidism (Chronic) Medical History: Medical History (Last Reviewed 05/21/18 @ 13:47 by Kirti Richardson) Chronic atrial fibrillation (Chronic) I48.2 Hypertension (Chronic) I10 Other secondary pulmonary hypertension (Chronic) I27.29 Nonrheumatic tricuspid (valve) insufficiency (Chronic) I36.1 Premature atrial contractions (Chronic) I49.1 Noncardiac pulmonary edema (Chronic) J81.1 COPD (chronic obstructive pulmonary disease) (Chronic) J44.9 Hypothyroidism (Chronic) E03.9 Osteoporosis M81.0 Asthma J45.909 Community acquired pneumonia (Resolved) J18.9 Hypoxia (Resolved) R09.02 Allergies budesonide [From Symbicort] Allergy (Verified 01/06/20 12:02) Unknown diltiazem [From Cardizem] Allergy (Verified 01/06/20 12:02) Unknown formoterol [From Symbicort] Allergy (Verified 01/06/20 12:02) Unknown Home Medications: Ambulatory Orders Medication Instructions Recorded Albuterol Aerosols [Ventolin 2.5 mg INHALATION Q4HWA.RT 10/11/16 Aerosols] Amiodarone HCl [Pacerone] 200 mg PO DAILY 01/06/20 Cholecalciferol (VIT D3) [Vitamin 3,000 unit PO QHS 01/06/20 D] Levothyroxine Sodium [Synthroid] 25 mcg PO QHS 04/29/20 Metoprolol Tartrate [Lopressor 25 mg PO BID 01/06/20 (beta denise)] Warfarin Sodium [Coumadin] 2.5 mg PO DAILY 01/06/20 Surgical History: Surgical History (Last Reviewed 05/21/18 @ 13:47 by Kirti Richardson) History of cholecystectomy Z90.49 History of tonsillectomy Z90.89 Surgical History: cholecystectomy, total hip arthroplasty - right, tonsillectomy Psychiatric History: 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 Lives: Alone Smoking Status: Never smoker Tobacco Use: Non-smoker Alcohol: None Drugs: None - *Family History Maternal Family History: Family History (Last Reviewed 05/21/18 @ 13:47 by Kirti Richardson) Sister Hypertension History Items: No pertinent history Paternal Family History: Family History (Last Reviewed 05/21/18 @ 13:47 by Kirti Richardson) Sister Hypertension History Items: Heart Disease Review of Systems Unable to obtain accurate/complete ROS d/t: Dementia Patient Problems: Active and Suspected Problems (Last Reviewed 05/21/18 @ 13:47 by Kirti Richardson) Fall at home (Acute) Fracture of femoral neck, left, closed (Acute) Objective: CTA of the chest was personally reviewed. There are some areas of hyperinflation, but not emphysematous changes as reported by radiology from my perspective. Patient does have diffuse groundglass infiltrates bilaterally with small bilateral pleural effusions and dependent atelectasis. There is some interstitial thickening, but no focal consolidation or air bronchograms. Airway thickening does not reach bronchiectasis criteria in my opinion. Patient does not have a recent cardiac work-up in our system. - Physical Exam Vitals/I&O's: Vital Signs Temp Pulse Resp BP Pulse Ox 36.6 C 60 20 H 107/52 L 93 01/07/20 04:21 01/07/20 04:21 01/07/20 04:21 01/07/20 04:21 01/07/20 05:20 Oxygen Flow Rate (L/min) 4 Oxygen Delivery Method Nasal Cannula Weight: 72.2 kg Body Mass Index (BMI) 25.4 Intake and Output for Last 24 Hours 01/05/20 01/06/20 01/07/20 23:59 23:59 23:59 Intake Total 150 / 150 Output Total 700 / 900 200 / 200 Balance -700 / -750 -50 / -50 General: Alert, No apparent distress, Confused, Disoriented, - - Appears stated age. Mild conversational dyspnea. HEENT: Atraumatic, PERRLA, EOMI, Normocephalic, - - No scleral icterus or injection noted Oral: Moist Mucosa, No Gingival or Mucosal Lesions/ Ulcerations Neck: Supple, No Nodes, Trachea Midline, JVD, Right Lungs: No rhonchi, No wheeze, Diminished, Rales - Right base posteriorly, - - Symmetric expansion Cardiovascular: Normal S1, Normal S2, Irregular Rate, Murmur - Grade 3 out of 6 systolic ejection murmur at the right sternal border. Possible diastolic murmur at the apex, No rub noted, No Gallop Abdomen: Bowel Sounds Present, Soft, Non Tender, Non-Distended Extremities: No clubbing, No cyanosis, Edema - Left greater than right Skin: - - Some bruising appreciated Musculoskeletal: No Tenderness to Palpation of Joints or Extremities Lymphatic: No Cervical, Supraclavicular, or Inguinal Adenopathy Neurological: Cranial nerves II-XII grossly intact, Neuro grossly intact - Did not check patient's lower extremities secondary to traction Psych/Mental Status: Normal Affect, Appropriate Laboratory Results 01/06/20 12:35: WBC 13.7 H, RBC 4.48, Hgb 13.9, Hct 43.8, MCV 97.8, MCH 31.0, MCHC 31.7 L, RDW Std Deviation 50.2 H, RDW Coeff of Concepcion 13.9, Plt Count 215, MPV 11.9, Immature Gran % (Auto) 1.400 H, Neut % (Auto) 82.3 H, Lymph % (Auto) 10.7 L, [place] % (Auto) 4.2, Eos % (Auto) 1.1, Baso % (Auto) 0.3, Absolute Neuts (auto) 11.3 H, Absolute Lymphs (auto) 1.46, Nucleated RBC % 0 01/06/20 12:35: PT 23.7 H, INR 2.2, APTT 36.4 H 01/06/20 12:35: Sodium 143, Potassium 3.9, Chloride 106, Carbon Dioxide 33.0 H, Anion Gap 4 L, BUN 10, Creatinine 0.88, Estim Creat Clear Calc 43.75, Est GFR (MDRD) Af Amer 78, Est GFR (MDRD) Non-Af 65, BUN/Creatinine Ratio 11.3, Glucose 92, Calcium 8.7, Total Bilirubin 0.90, AST 26, ALT 21, Alkaline Phosphatase 69, Total Protein 6.7, Albumin 3.2, Globulin 3.5, Albumin/Globulin Ratio 0.9 01/06/20 12:35: Blood Type A POSITIVE, Antibody Screen NEGATIVE 01/06/20 13:15: Urine Color Yellow, Urine Clarity Sl. Cloudy, Urine pH 8.0, Ur Specific [place] 1.010, Urine Protein Negative, Urine Glucose (UA) Normal, Urine Ketones Negative, Urine Occult Blood 10 H, Urine Nitrite Negative, Urine Bilirubin Negative, Urine Urobilinogen Normal, Ur Leukocyte Esterase 100 H, Urine RBC 0-5 SEEN, Urine WBC 10-25 SEEN, Ur Squamous Epith Cells 0-5 SEEN, Urine Bacteria 1+, Urine Mucus 0 SEEN 01/06/20 16:27: POC Glucose 103 01/06/20 19:40: Specimen Type ART, Sample Site R RADIAL, pH 7.36, Bicarbonate Actual 29.6 H, POC Total CO2 31, Base Excess 4 H, O2 Saturation 91 L, ABG pCO2 52.0 H, ABG pO2 64 L, Nain Test POS, O2 Delivery Device NRB Mask, Liter Flow 10.0, Blood Gas Notified Whom LIZETT DELATORRE, Blood Gas Notified Time 193901/06/20 20:55: PT 23.7 H, INR 2.2 01/06/20 20:55: D-Dimer Quant (PE/DVT) > 20.00 H* 01/06/20 23:06: POC Glucose 148 H 01/07/20 04:34: WBC 14.9 H, RBC 4.16 L, Hgb 13.0, Hct 40.4, MCV 97.1, MCH 31.3, MCHC 32.2, RDW Std Deviation 50.5 H, RDW Coeff of Concepcion 14.1, Plt Count 167, MPV 11.2, Immature Gran % (Auto) 0.400, Neut % (Auto) 85.4 H, Lymph % (Auto) 8.8 L, [place] % (Auto) 3.4, Eos % (Auto) 1.7, Baso % (Auto) 0.3, Absolute Neuts (auto) 12.8 H, Absolute Lymphs (auto) 1.32, Nucleated RBC % 0 01/07/20 04:34: PT 22.8 H, INR 2.1 01/07/20 04:34: Sodium 140, Potassium 4.1, Chloride 106, Carbon Dioxide 30.0, Anion Gap 4 L, BUN 14, Creatinine 1.03 H, Estim Creat Clear Calc 38.83, Est GFR (MDRD) Af Amer 66, Est GFR (MDRD) Non-Af 54 L, BUN/Creatinine Ratio 13.6, Glucose 123 H, Calcium 8.2 L, Total Bilirubin 1.70 H, AST 65 H, ALT 55, Alkaline Phosphatase 83, Total Protein 5.8 L, Albumin 2.5 L, Globulin 3.3, Albumin/Globulin Ratio 0.8 L, TSH 2.41 01/07/20 06:10: POC Glucose 95 Current Medications Acetaminophen (Tylenol) 1,000 mg PO Q8 COUNT [facility]CLUDES [facility] Last Admin: 01/07/20 05:16 Dose: Not Given Documented by: Albuterol Sulfate (Ventolin Aerosols) 2.5 mg INHALATION Q4HWA.RT COUNT INCLUDES [facility] Last Admin: 01/06/20 19:06 Dose: 2.5 mg Documented by: Amiodarone HCl (Cordarone) 200 mg PO DAILY COUNT INCLUDES [facility] Cholecalciferol (Vitamin D (25mcg)) 3,000 unit PO DAILY COUNT INCLUDES [facility] Dextrose (D50w Syringe) 0 gm IV X1 PRN; Protocol PRN Reason: Hypoglycemia Glucagon () 1 mg IM .X1 PRN PRN Reason: Hypoglycemia Sodium Chloride () 250 mls @ 15 mls/hr IV .[id number] PRN PRN Reason: Saline Flush Sodium Chloride () 250 mls @ 15 mls/hr IV .[id number] PRN PRN Reason: Additional IVPB Infusion Cefazolin Sodium 2 gm/ Sodium (Chloride) 110 mls @ 150 mls/hr IV X1 ONE Stop: 01/07/20 08:43 Levothyroxine Sodium (Synthroid) 25 mcg PO DAILY@0600 COUNT [facility]CLUD[facility] Last Admin: 01/07/20 05:16 Dose: Not Given Documented by: Metoprolol Tartrate (Lopressor (Beta Denise)) 25 mg PO BID COUNT [facility]CLUDES [facility] Last Admin: 01/06/20 21:22 Dose: Not Given Documented by: Morphine Sulfate () 2 mg IV Q3H PRN PRN PRN Reason: Pain Score 6-10/10 Last Admin: 01/06/20 15:40 Dose: 2 mg Documented by: Ondansetron HCl (Zofran) 4 mg IV Q8H PRN PRN PRN Reason: NAUSEA/VOMITING Oxycodone HCl (Oxyir) 5 mg PO Q6H PRN PRN PRN Reason: Pain Score 6-10/10 Sodium Chloride () 10 - 40 ml IV UD PRN PRN Reason: SALINE FLUSH Last Admin: 01/07/20 00:38 Dose: 10 ml Documented by: Clinical Impression(s) from Imaging Studies Chest X-Ray 01/06/20 11:57 IMPRESSION: No acute cardiopulmonary findings Electronically Signed: Leo Alcocer DO at 12:44 EDT Tel , Service support , Hip/Pelvis X-Ray 01/06/20 11:57 IMPRESSION: Acute minimally displaced left subcapital femoral neck fracture Degenerative/postsurgical changes, as above Electronically Signed: Leo Alcocer DO at 12:54 EDT Tel , Service support , Chest CTA 01/06/20 21:47 IMPRESSION: 1. The lungs are hyperinflated with cystic emphysematous changes. 2. Diffuse groundglass edema is present throughout both lungs. 3. Small bilateral pleural effusions are also present with minimal dependent atelectasis. 4. Some interstitial thickening and scarring is present primarily in the lateral lung bases. Some chronic appearing pleural parenchymal scarring is present in the bilateral posterior aspects of both lungs. 5. No focal consolidation or air bronchograms. 6. A few pleural plaques are also present bilaterally. 7. No demonstrated pulmonary embolism or arterial dissection. 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 Administer Lasix again this morning 2. Obtain echocardiogram for possible aortic stenosis versus pulmonary hypertension 3. Consider FFP given elevated INR 4. Wean oxygen as tolerated 5. Encourage incentive spirometer 6. Could consider monitoring in the intensive care unit postoperatively IMPRESSIONS: 1. Acute hypoxic respiratory failure Clinical suspicion for an element of congestive heart failure leading to acute hypoxic respiratory failure. Patient does not have significant wheezing on exam and has groundglass opacities noted on CT scan. Patient does have a murmur on exam that has not been explained by previous work-up. 2. Acute left subcapsular femoral neck fracture secondary to mechanical fall Orthopedics has been consulted. Consider evaluation by cardiology. Echocardiogram has been ordered. Patient can be monitored overnight in the intensive care unit given response to previous narcotics, but defer to primary/hospitalist service. 3. Chronic A. fib/iatrogenic coagulopathy Patient appears to be in normal sinus rhythm at this time, but did note a significant murmur. This cannot be explained by previous work-up. Differential would include aortic stenosis versus pulmonary hypertension. Patient does not have a history of smoking, so doubt COPD. Patient may have an element of fluid overload leading to groundglass opacities. Patient is not reporting any fever, exposure or cough to suggest COVID 19. Elevated white count likely secondary to stress response. Hemoglobin has remained stable despite coagulopathy and acute fracture. 4. Hypertension/hypothyroidism/osteoporosis/probable dementia/advanced age Complicates care, management, recovery and prognosis. Okay to continue baseline medications from my perspective. Patient may benefit from a dementia work-up as an outpatient. Inpatient E&M: 40266 Init Hosp L3
--- NOTE | 2020-01-07 07:24 | PN_ITS ---
Patient Problems: Active and Suspected Problems (Last Reviewed 05/21/18 @ 13:47 by Kirti Richardson) Fall at home (Acute) Fracture of femoral neck, left, closed (Acute) Reason for Visit: Follow-up on acute hypoxic respiratory failure/left hip fracture Subjective: Patient was seen and examined. Overnight she continued to be on Ventimask. D- dimer was elevated more than >20. CTA of the chest showed bilateral groundglass edema. Her respiratory status improved with IV Lasix treatment to 4L oxygen. 2D-echo has been ordered by cardiology shows mild aortic stenosis, EF 60%. INR is 2.1. She will receive 2 units of FFPs. Objective: Physical exam: General: Alert, Oriented x3, Cooperative, No apparent distress HEENT: Atraumatic, PERRLA, EOMI, Normocephalic Oral: Moist Mucosa Neck: Supple Lungs: Clear to auscultation, Normal air movement Cardiovascular: Regular rate, Regular Rhythm, Normal S1, Normal S2, No murmurs Abdomen: Bowel Sounds Present, Soft, Non Tender, Non-Distended, No Hepato- splenomegaly Extremities: No edema Skin: No rashes Musculoskeletal: No Tenderness to Palpation of Joints or Extremities Lymphatic: No Cervical, Supraclavicular, or Inguinal Adenopathy Neurological: Cranial nerves II-XII grossly intact, Neuro grossly intact Psych/Mental Status: Normal Affect, Appropriate Vitals/I&O's: Vital Signs Temp Pulse Resp BP Pulse Ox 97.8 F 60 20 H 107/52 L 93 01/07/20 04:21 01/07/20 04:21 01/07/20 04:21 01/07/20 04:21 01/07/20 05:20 Oxygen Flow Rate (L/min) 4 Oxygen Delivery Method Nasal Cannula Weight: 72.2 kg Body Mass Index (BMI) 25.4 Intake and Output for Last 24 Hours 01/05/20 01/06/20 01/07/20 23:59 23:59 23:59 Intake Total 150 / 150 Output Total 700 / 900 650 / 650 Balance -700 / -750 -500 / -500 Laboratory Results 01/06/20 12:35: WBC 13.7 H, RBC 4.48, Hgb 13.9, Hct 43.8, MCV 97.8, MCH 31.0, MC HC 31.7 L, RDW Std Deviation 50.2 H, RDW Coeff of Concepcion 13.9, Plt Count 215, MPV 11.9, Immature Gran % (Auto) 1.400 H, Neut % (Auto) 82.3 H, Lymph % (Auto) 10.7 L, [place] % (Auto) 4.2, Eos % (Auto) 1.1, Baso % (Auto) 0.3, Absolute Neuts (auto) 11.3 H, Absolute Lymphs (auto) 1.46, Nucleated RBC % 0 01/06/20 12:35: PT 23.7 H, INR 2.2, APTT 36.4 H 01/06/20 12:35: Sodium 143, Potassium 3.9, Chloride 106, Carbon Dioxide 33.0 H, Anion Gap 4 L, BUN 10, Creatinine 0.88, Estim Creat Clear Calc 43.75, Est GFR (MDRD) Af Amer 78, Est GFR (MDRD) Non-Af 65, BUN/Creatinine Ratio 11.3, Glucose 92, Calcium 8.7, Total Bilirubin 0.90, AST 26, ALT 21, Alkaline Phosphatase 69, Total Protein 6.7, Albumin 3.2, Globulin 3.5, Albumin/Globulin Ratio 0.9 01/06/20 12:35: Blood Type A POSITIVE, Antibody Screen NEGATIVE 01/06/20 13:15: Urine Color Yellow, Urine Clarity Sl. Cloudy, Urine pH 8.0, Ur Specific [place] 1.010, Urine Protein Negative, Urine Glucose (UA) Normal, Urine Ketones Negative, Urine Occult Blood 10 H, Urine Nitrite Negative, Urine Bilirubin Negative, Urine Urobilinogen Normal, Ur Leukocyte Esterase 100 H, Urine RBC 0-5 SEEN, Urine WBC 10-25 SEEN, Ur Squamous Epith Cells 0-5 SEEN, Urine Bacteria 1+, Urine Mucus 0 SEEN 01/06/20 16:27: POC Glucose 103 01/06/20 19:40: Specimen Type ART, Sample Site R RADIAL, pH 7.36, Bicarbonate Actual 29.6 H, POC Total CO2 31, Base Excess 4 H, O2 Saturation 91 L, ABG pCO2 52.0 H, ABG pO2 64 L, Nain Test POS, O2 Delivery Device NRB Mask, Liter Flow 10.0, Blood Gas Notified Whom LIZETT DELATORRE, Blood Gas Notified Time 193901/06/20 20:55: PT 23.7 H, INR 2.2 01/06/20 20:55: D-Dimer Quant (PE/DVT) > 20.00 H* 01/06/20 23:06: POC Glucose 148 H 01/07/20 04:34: WBC 14.9 H, RBC 4.16 L, Hgb 13.0, Hct 40.4, MCV 97.1, MCH 31.3, MCHC 32.2, RDW Std Deviation 50.5 H, RDW Coeff of Concepcion 14.1, Plt Count 167, MPV 11.2, Immature Gran % (Auto) 0.400, Neut % (Auto) 85.4 H, Lymph % (Auto) 8.8 L, [place] % (Auto) 3.4, Eos % (Auto) 1.7, Baso % (Auto) 0.3, Absolute Neuts (auto) 12.8 H, Absolute Lymphs (auto) 1.32, Nucleated RBC % 0 01/07/20 04:34: PT 22.8 H, INR 2.1 01/07/20 04:34: Sodium 140, Potassium 4.1, Chloride 106, Carbon Dioxide 30.0, Anion Gap 4 L, BUN 14, Creatinine 1.03 H, Estim Creat Clear Calc 38.83, Est GFR (MDRD) Af Amer 66, Est GFR (MDRD) Non-Af 54 L, BUN/Creatinine Ratio 13.6, Glucose 123 H, Calcium 8.2 L, Total Bilirubin 1.70 H, AST 65 H, ALT 55, Alkaline Phosphatase 83, Total Protein 5.8 L, Albumin 2.5 L, Globulin 3.3, Albumin/Globulin Ratio 0.8 L, TSH 2.41 01/07/20 06:10: POC Glucose 95 Current Medications Acetaminophen (Tylenol) 1,000 mg PO Q8 [facility] Last Admin: 01/07/20 05:16 Dose: Not Given Documented by: Albuterol Sulfate (Ventolin Aerosols) 2.5 mg INHALATION Q4HWA.RT [facility] Last Admin: 01/06/20 19:06 Dose: 2.5 mg Documented by: Amiodarone HCl (Cordarone) 200 mg PO DAILY [facility] Cholecalciferol (Vitamin D (25mcg)) 3,000 unit PO DAILY [facility] Dextrose (D50w Syringe) 0 gm IV X1 PRN; Protocol PRN Reason: Hypoglycemia Glucagon () 1 mg IM .X1 PRN PRN Reason: Hypoglycemia Sodium Chloride () 250 mls @ 15 mls/hr IV .[id number] PRN PRN Reason: Saline Flush Sodium Chloride () 250 mls @ 15 mls/hr IV .[id number] PRN PRN Reason: Additional IVPB Infusion Cefazolin Sodium 2 gm/ Sodium (Chloride) 110 mls @ 150 mls/hr IV X1 ONE Stop: 01/07/20 08:43 Levothyroxine Sodium (Synthroid) 25 mcg PO DAILY@0600 [facility] Last Admin: 01/07/20 05:16 Dose: Not Given Documented by: Metoprolol Tartrate (Lopressor (Beta Denise)) 25 mg PO BID [facility] Last Admin: 01/06/20 21:22 Dose: Not Given Documented by: Morphine Sulfate () 2 mg IV Q3H PRN PRN PRN Reason: Pain Score 6-10/10 Last Admin: 01/06/20 15:40 Dose: 2 mg Documented by: Ondansetron HCl (Zofran) 4 mg IV Q8H PRN PRN PRN Reason: NAUSEA/VOMITING Oxycodone HCl (Oxyir) 5 mg PO Q6H PRN PRN PRN Reason: Pain Score 6-10/10 Sodium Chloride () 10 - 40 ml IV UD PRN PRN Reason: SALINE FLUSH Last Admin: 01/07/20 00:38 Dose: 10 ml Documented by: STROKE Vital Signs/Narrative: Vital Signs Temp Pulse Resp BP Pulse Ox 01/07/20 05:20 93 01/07/20 04:21 97.8 F 60 20 H 107/52 L 97 Medical Necessity - Tobacco Use Smoking Status: Never smoker Tobacco Use: Non-smoker Assessment/Plan All Active Problems (Last Reviewed 05/21/18 @ 13:47 by Kirti Richardson) Fall at home (Acute) Fracture of femoral neck, left, closed (Acute) 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 Acute hypoxic respiratory failure likely secondary to acute diastolic CHF/via pulmonary hypertension 2D-Echo shows EF of 60%, mild aortic stenosis, pulmonary hypertension Improved with Lasix We will continue on IV Lasix 20mg BID, BMP in am 2. Acute left subcapital femoral neck fracture secondary to mechanical fall H/o osteoporosis; patient tripped on her bathroom; pain is fairly controlled Orthopedic surgery consulted ACS NSQIP score is below average( see paper chart) 3. Hypercoagulable state secondary to warfarin administration INR is 2.1, received vitamin K last night, will be transfused 2 units of FFP's today INR in am 4. Chronic atrial fibrillation, in NSR now, off Coumadin Continue on metoprolol, amiodarone Will await surgery recommendation when to restart Coumadin 5. Hypertension, controlled, continue on metoprolol 6. Hypothyroidism, on levothyroxine 7. Osteoporosis, not on treatment, would need to be worked out in the outpatient 8. Cognitive impairment, no formal diagnosis of dementia 9. DVT prophylaxis - INR is therapeutic 10. CODE STATUS -DNR [facility] Inpatient E&M: 35912 Subs Hosp L2
[2020-01-07] MEDS: Albuterol 2.5 MG/3 ML VIAL.NEB. INHALATION ×3 (07:35→19:43)
[2020-01-07] MEDS: Furosemide 20 MG/2 ML VIAL IV (07:54)
--- NOTE | 2020-01-07 09:22 | CASEMGMT ---
Social Work Assessment Referral Date: 01/07/2020 Date of Assessment: 01/07/2020 Reason for consult: Hip fracture Informant: THOMAS Personal Status: SW met with pt to complete initial assessment. SW introduced self and role at [facility]. Pt is alert and orientated x3. Pt states that she lives alone in a two story home with first floor set up. Pt states she has 3-4 steps to enter with railings. Pt states that her daughter lives close to her and she checks in with her daily. Pt states that she was previously independent with ADLS, still drives. DME include cane, walker, bedside commode and wears oxygen at night. Pt states her oxygen is through [facility]. Preferred pharmacy is [facility] and PCP is Dr. Garcia. Pt states not history of SNF or HHC. Substance abuse Hx: Pt denied Mental Health Hx: Pt denied SW spoke with pt regarding SNF for short term rehabilitation as typically after hip fractures, pt will need SNF. SW provided pt with list of SNF that accept her insurance. Pt states she prefers [facility]. Pt is having surgery today, no PT/OT will be available until after surgery. SW placed a call to Carrie in TCU and left message regarding referral. Plan: TCU pending acceptance and pre-cert. Julissa Singleton COMMUNITY ENGAGEMENT REPRESENTATIVE, EGGS INSPECTOR
[2020-01-07] MEDS: Morphine 2 MG/ML Syringe IV (09:29)
--- NOTE | 2020-01-07 09:50 | NURSING ---
pt off unit to AC. Report called to YAMILETH MALONE.
[2020-01-07] MEDS: Cefazolin 2 GM in 0.9% Normal Saline 100 ML IV (11:06)
[2020-01-07] MEDS: Bupiv/Epi 0.25% 30 ML Vial (12:03)
[2020-01-07 12:36] LABS: Bedside Glucose 97 mg/dL (70-110)
--- NOTE | 2020-01-07 12:41 | RAD_ITS ---
STUDY: X-RAY - PELVIS AND LEFT HIP REASON FOR EXAM: Female, 84 years old. POST OP, HEMIARTHROPLASTY TECHNIQUE: 3 views of the pelvis and hip. COMPARISON: January 06, 2020 FINDINGS: Status post surgical resection of the left femoral head and neck and interval placement of a acetabular and proximal femoral shaft ceases demonstrating good bony contact and alignment. Expected postoperative changes seen in the overlying soft tissues right hip dynamic compression screw is stable. RAD/Hip Min 2 Views (Portable) IMPRESSION: New left hip hardware. Electronically Signed: Tyrone Kirby MD at 16:00 EDT , Service support ,
--- NOTE | 2020-01-07 12:44 | PCM.CONS.GEN ---
Reason for Consult Date of Consultation: 01/07/20 Reason for Consultation: Displaced femoral neck fracture History of Present Illness: The patient is a 84 year old F ground-level fall at home injuring left hip inability ambulate on Coumadin INR 2.2 on admission admitted to hospitalist service medically cleared to consult for left hip fracture Past Medical History Past Medical History (Chronic Problems): Chronic Problems (Last Reviewed 05/21/18 @ 13:47 by Kirti Richardson) Chronic atrial fibrillation (Chronic) Hypertension (Chronic) Other secondary pulmonary hypertension (Chronic) Nonrheumatic tricuspid (valve) insufficiency (Chronic) Premature atrial contractions (Chronic) Noncardiac pulmonary edema (Chronic) COPD (chronic obstructive pulmonary disease) (Chronic) Hypothyroidism (Chronic) Medical History: Medical History (Last Reviewed 05/21/18 @ 13:47 by Kirti Richardson) Chronic atrial fibrillation (Chronic) I48.2 Hypertension (Chronic) I10 Other secondary pulmonary hypertension (Chronic) I27.29 Nonrheumatic tricuspid (valve) insufficiency (Chronic) I36.1 Premature atrial contractions (Chronic) I49.1 Noncardiac pulmonary edema (Chronic) J81.1 COPD (chronic obstructive pulmonary disease) (Chronic) J44.9 Hypothyroidism (Chronic) E03.9 Osteoporosis M81.0 Asthma J45.909 Community acquired pneumonia (Resolved) J18.9 Hypoxia (Resolved) R09.02 Allergies budesonide [From Symbicort] Allergy (Verified 01/06/20 12:02) Unknown diltiazem [From Cardizem] Allergy (Verified 01/06/20 12:02) Unknown formoterol [From Symbicort] Allergy (Verified 01/06/20 12:02) Unknown Home Medications: Ambulatory Orders Medication Instructions Recorded Albuterol Aerosols [Ventolin 2.5 mg INHALATION Q4HWA.RT 10/11/16 Aerosols] Amiodarone HCl [Pacerone] 200 mg PO DAILY 01/06/20 Cholecalciferol (VIT D3) [Vitamin 3,000 unit PO QHS 01/06/20 D] Levothyroxine Sodium [Synthroid] 25 mcg PO QHS 01/06/20 Metoprolol Tartrate [Lopressor 25 mg PO BID 01/06/20 (beta denise)] Warfarin Sodium [Coumadin] 2.5 mg PO DAILY 01/06/20 Surgical History: Surgical History (Last Reviewed 05/21/18 @ 13:47 by Kirti Richardson) History of cholecystectomy Z90.49 History of tonsillectomy Z90.89 Surgical History: cholecystectomy, total hip arthroplasty - right, tonsillectomy Psychiatric History: 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 Lives: Alone Smoking Status: Never smoker Tobacco Use: Non-smoker Alcohol: None Drugs: None - *Family History Maternal Family History: Family History (Last Reviewed 05/21/18 @ 13:47 by Kirti Richardson) Sister Hypertension History Items: No pertinent history Paternal Family History: Family History (Last Reviewed 05/21/18 @ 13:47 by Kirti Richardson) Sister Hypertension History Items: Heart Disease Patient Problems: Active and Suspected Problems (Last Reviewed 05/21/18 @ 13:47 by Kirti Richardson) Fall at home (Acute) Fracture of femoral neck, left, closed (Acute) - Physical Exam Vitals/I&O's: Vital Signs Temp Pulse Resp BP Pulse Ox 99.0 F 72 16 140/54 H 100 01/07/20 12:23 01/07/20 12:23 01/07/20 12:23 01/07/20 12:23 01/07/20 12:23 Oxygen Flow Rate (L/min) 6 Oxygen Delivery Method Nasal Cannula Weight: 159 lb 2.78 oz Body Mass Index (BMI) 25.0 Intake and Output for Last 24 Hours 01/05/20 01/06/20 01/07/20 23:59 23:59 23:59 Intake Total 570 / 570 Output Total 700 / 900 1525 / 1525 Balance -700 / -750 -955 / -955 General: Alert - No open wounds around hip compartment soft some edema bilateral lower extremities, Cooperative, No apparent distress Laboratory Results 01/06/20 12:35: WBC 13.7 H, RBC 4.48, Hgb 13.9, Hct 43.8, MCV 97.8, MCH 31.0, MCHC 31.7 L, RDW Std Deviation 50.2 H, RDW Coeff of Concepcion 13.9, Plt Count 215, MPV 11.9, Immature Gran % (Auto) 1.400 H, Neut % (Auto) 82.3 H, Lymph % (Auto) 10.7 L, [place] % (Auto) 4.2, Eos % (Auto) 1.1, Baso % (Auto) 0.3, Absolute Neuts (auto) 11.3 H, Absolute Lymphs (auto) 1.46, Nucleated RBC % 0 01/06/20 12:35: PT 23.7 H, INR 2.2, APTT 36.4 H 01/06/20 12:35: Sodium 143, Potassium 3.9, Chloride 106, Carbon Dioxide 33.0 H, Anion Gap 4 L, BUN 10, Creatinine 0.88, Estim Creat Clear Calc 43.75, Est GFR (MDRD) Af Amer 78, Est GFR (MDRD) Non-Af 65, BUN/Creatinine Ratio 11.3, Glucose 92, Calcium 8.7, Total Bilirubin 0.90, AST 26, ALT 21, Alkaline Phosphatase 69, Total Protein 6.7, Albumin 3.2, Globulin 3.5, Albumin/Globulin Ratio 0.9 01/06/20 12:35: Blood Type A POSITIVE, Antibody Screen NEGATIVE 01/06/20 13:15: Urine Color Yellow, Urine Clarity Sl. Cloudy, Urine pH 8.0, Ur Specific [place] 1.010, Urine Protein Negative, Urine Glucose (UA) Normal, Urine Ketones Negative, Urine Occult Blood 10 H, Urine Nitrite Negative, Urine Bilirubin Negative, Urine Urobilinogen Normal, Ur Leukocyte Esterase 100 H, Urine RBC 0-5 SEEN, Urine WBC 10-25 SEEN, Ur Squamous Epith Cells 0-5 SEEN, Urine Bacteria 1+, Urine Mucus 0 SEEN 01/06/20 16:27: POC Glucose 103 01/06/20 19:40: Specimen Type ART, Sample Site R RADIAL, pH 7.36, Bicarbonate Actual 29.6 H, POC Total CO2 31, Base Excess 4 H, O2 Saturation 91 L, ABG pCO2 52.0 H, ABG pO2 64 L, Nain Test POS, O2 Delivery Device NRB Mask, Liter Flow 10.0, Blood Gas Notified Whom LIZETT DELATORRE, Blood Gas Notified Time 193901/06/20 20:55: PT 23.7 H, INR 2.2 01/06/20 20:55: D-Dimer Quant (PE/DVT) > 20.00 H* 01/06/20 23:06: POC Glucose 148 H 01/07/20 04:34: WBC 14.9 H, RBC 4.16 L, Hgb 13.0, Hct 40.4, MCV 97.1, MCH 31.3, MCHC 32.2, RDW Std Deviation 50.5 H, RDW Coeff of Concepcion 14.1, Plt Count 167, MPV 11.2, Immature Gran % (Auto) 0.400, Neut % (Auto) 85.4 H, Lymph % (Auto) 8.8 L, [place] % (Auto) 3.4, Eos % (Auto) 1.7, Baso % (Auto) 0.3, Absolute Neuts (auto) 12.8 H, Absolute Lymphs (auto) 1.32, Nucleated RBC % 0 01/07/20 04:34: PT 22.8 H, INR 2.1 01/07/20 04:34: Sodium 140, Potassium 4.1, Chloride 106, Carbon Dioxide 30.0, Anion Gap 4 L, BUN 14, Creatinine 1.03 H, Estim Creat Clear Calc 38.83, Est GFR (MDRD) Af Amer 66, Est GFR (MDRD) Non-Af 54 L, BUN/Creatinine Ratio 13.6, Glucose 123 H, Calcium 8.2 L, Total Bilirubin 1.70 H, AST 65 H, ALT 55, Alkaline Phosphatase 83, Total Protein 5.8 L, Albumin 2.5 L, Globulin 3.3, Albumin/Globulin Ratio 0.8 L, TSH 2.41 01/07/20 06:10: POC Glucose 95 01/07/20 12:32: POC Glucose 97 Current Medications Acetaminophen (Tylenol) 1,000 mg PO Q8 [facility] Last Admin: 01/07/20 05:16 Dose: Not Given Documented by: Albuterol Sulfate (Ventolin Aerosols) 2.5 mg INHALATION Q4HWA.RT [facility] Last Admin: 01/07/20 11:20 Dose: Not Given Documented by: Amiodarone HCl (Cordarone) 200 mg PO DAILY [facility] Cholecalciferol (Vitamin D (25mcg)) 3,000 unit PO DAILY [facility] Dextrose (D50w Syringe) 0 gm IV X1 PRN; Protocol PRN Reason: Hypoglycemia Glucagon () 1 mg IM .X1 PRN PRN Reason: Hypoglycemia Sodium Chloride () 250 mls @ 15 mls/hr IV .[id number] PRN PRN Reason: Saline Flush Sodium Chloride () 250 mls @ 15 mls/hr IV .[id number] PRN PRN Reason: Additional IVPB Infusion Cefazolin Sodium () 1 gm in 50 mls @ 100 mls/hr IV Q8 [facility] Levothyroxine Sodium (Synthroid) 25 mcg PO DAILY@0600 [facility] Last Admin: 01/07/20 05:16 Dose: Not Given Documented by: Metoprolol Tartrate (Lopressor (Beta Denise)) 25 mg PO BID [facility] Last Admin: 01/06/20 21:22 Dose: Not Given Documented by: Morphine Sulfate () 2 mg IV Q3H PRN PRN PRN Reason: Pain Score 6-10/10 Last Admin: 01/07/20 09:29 Dose: 2 mg Documented by: Ondansetron HCl (Zofran) 4 mg IV Q8H PRN PRN PRN Reason: NAUSEA/VOMITING Oxycodone HCl (Oxyir) 5 mg PO Q6H PRN PRN PRN Reason: Pain Score 6-10/10 Senna/Docusate Sodium (Senokot-S, Raquel-Colace) 2 tablet PO BID [facility] Sodium Chloride () 10 - 40 ml IV UD PRN PRN Reason: SALINE FLUSH Last Admin: 01/07/20 09:29 Dose: 20 ml Documented by: Assessment/Plan All Active Problems (Last Reviewed 05/21/18 @ 13:47 by Kirti Richardson) Fall at home (Acute) Fracture of femoral neck, left, closed (Acute) prison (current) use of anticoagulants (Acute) Community acquired pneumonia (Resolved) Hypoxia (Resolved) Left displaced femoral neck fracture plan for OR for hemiarthroplasty INR down to 1.5
[2020-01-07] MEDS: Cefazolin 1 GM/50 ML BAG IV ×2 (12:45→20:01)
--- NOTE | 2020-01-07 12:47 | PCM.OPRPT ---
Report of Operation Date of Procedure: 01/07/20 Description of Surgical Findings:: Preoperative diagnosis: Left hip femoral neck fracture displaced Postoperative diagnosis: Same Procedure: Left hip hemiarthroplasty Implants: [place] Accolade II stem size 7 and 132 degree neck angle +4 neck length 48 mm outer diameter bipolar head Anesthesia: General l EBL: 150 cc Complications: None Condition: Stable to PACU Indication for procedure: This is a pleasant 84-year-old female patient who had a ground-level fall who does have atrial fibrillation on Coumadin with an INR of 2.2 on admission patient was given vitamin K as well as a unit of FFP and her INR was 1.5 prior to surgery with a second unit of FFP running patient was unable to ambulate severe pain we did discuss surgical versus nonsurgical intervention. plans for definitive hemiarthroplasty were discussed including risks benefits and alternatives of the procedure were reviewed with the patient including risk of bleeding infection nerve artery tissue damage need for further surgery continue pain postoperative hip precaution restrictions leg length discrepancy and dislocation. Procedure: Patient was met in the preoperative holding area once again the operative extremity was identified by both patient and physician and was marked. Patient was met by anesthesia and brought to the operating room where anesthesia was started . The patient was then positioned in the lateral decubitus position on a well-padded pegboard with an axillary roll. All bony prominences were checked and padded. The patient was prepped and draped in the usual sterile fashion. A timeout was called to ensure the proper patient procedure and extremity were being contemplated. Anatomic landmarks were palpated and marked for a standard posterior lateral approach. A timeout was called to ensure the proper patient procedure and extremity were being contemplated. A 10 blade scalpel was used to make a posterior incision through the skin and subcutaneous tissue. In retractors were used and electrocautery was used to maintain meticulous hemostasis and dissect full-thickness flaps until the gluteal fascia was reached. The gluteal fascia was incised in line with the gluteal fibers. The bursal tissue was then freed from the underside and a Charnley retractor was placed. The fatpad was elevated off of the external rotators with electrocautery and the external rotators were dissected off of the greater trochanter including the piriformis and were tagged with #1 Ethibond for later repair. The joint capsule opened with posterior trapdoor technique. A femoral neck cutting guide was used to alfredo the neck with a Bovie and an oscillating saw was used to complete the femoral neck cut. the fracture was visualized and with the use of a corkscrew and a skid the femoral head was removed and sized. We then trialed with the matching sizes . Hohmann was placed around the lesser trochanter. A femoral elevator was used. As well as a pointed wide Hohmann around the lesser trochanter and a Hohmann to help retract the gluteus medius. A box chisel was used to remove excess lateral neck followed by a canal finder and a lateralizing reamer. This was followed by sequential broaches. Attention was made of the version within the canal. Once the final broach was seated we then trialed and reduced the hip it was determined that a 132 degree neck angle with a +4 neck length was the appropriate size. We then checked stability with shuck testing as well as flexion and interminal rotation then proceeded with hip extension and checked leg lengths at the knees and heels. At this point trials were removed. The femoral stem was inserted. We re-trialed and then proceeded to impact the femoral head onto the Santiago taper. We then surgically reduce the hip check stability again and leg lengths and were satisfied. irricept rinse was allowed to sit for 1 minutes while everyone changed their gloves. Thorough irrigation was performed. Followed by closure of the external rotators with #2 FiberWire followed by closure of gluteal fascia with #1 Ethibond. 0 Vicryl fat stitches and 2-0 Vicryl subcutaneous stitches and wojciech in the skin. Dressing was applied in the form of silverlon dressing and an abduction pillow was placed. Patient tolerated the procedure well there was no intraoperative complications all counts were correct and the patient was brought back to the PACU in stable condition
[2020-01-07 16:51] LABS: Prothrombin Time Fingerstick 18.9 SEC (11.9-14.4)
[2020-01-07 18:05] LABS: Bedside Glucose 98 mg/dL (70-110)
[2020-01-07] MEDS: Metoprolol Tartrate 25 MG Tablet PO (21:34)
[2020-01-07] MEDS: Senna/Docusate Sodium 1 Tablet 2 TABLET PO (21:35)
[2020-01-07] MEDS: Acetaminophen 500 MG Tablet 1000 MG PO (21:37)
[2020-01-07 21:55] LABS: Bedside Glucose 129 mg/dL (70-110)
[2020-01-08] VITALS (18 sets, daily range): BP systolic 100–110; BP diastolic 43–53; PULSE 62–79; RESP 16–22; TEMP 36.3–37.2; O2SAT 3–97
[2020-01-08 00:31] LABS: Bedside Glucose 118 mg/dL (70-110)
[2020-01-08] MEDS: Cefazolin 1 GM/50 ML BAG IV ×2 (05:20→13:16)
[2020-01-08] MEDS: Levothyroxine 25 MCG TABLET PO (05:20)
[2020-01-08] MEDS: Acetaminophen 500 MG Tablet 1000 MG PO ×3 (05:20→22:21)
[2020-01-08 06:06] LABS: Absolute Lymphocyte Count 1.05 X10^3/uL (0.83-4.51); Absolute Neutrophil Count 10.2 X10^3/uL (2.0-7.7); Basophil# 0.03 X10^3/uL; Basophil% 0.2 % (0-1); Eosinophil# 0.28 X10^3/uL; Eosinophils% 2.3 % (0-5); Hematocrit 33.5 % (37-47); Hemoglobin 10.5 g/dL (12.0-15.0); Lymphocyte # 1.05 X10^3/ul (4.0); Lymphocyte % 8.6 % (19-41); Mean Corp Hgb Conc 31.3 g/dL (32-36); Mean Corpuscular Hgb 31.1 pg (27.0-32.0); Mean Corpuscular Volume 99.1 fL (81-99); Mean Platelet Vol. 11.9 fl (6.2-12.0); Monocyte% 4.9 % (0-10); NRBC Flagged by Analyzer 0 % (0-5); Neutrophil % 83.6 % (47-70); Platelet Count 129 K/mm3 (150-450); RBC Distribution Width SD 50.7 fl (35.1-43.9); Red Blood Count 3.38 M/mm3 (4.2-5.4); White Blood Count 12.2 K/mm3 (4.4-11.0)
[2020-01-08 06:08] LABS: International Normalized Ratio 1.4; Prothrombin Time (Protime)PT. 16.2 SECONDS (11.7-14.9)
[2020-01-08 06:37] LABS: ALB/GLOB Ratio 0.8 RATIO (0.9-2.4); AST(SGOT) 54 U/L (15-37); Alanine Aminotransfer ALT/SGPT 37 U/L (13-56); Albumin, Serum 2.6 g/dL (3.2-5.0); Alkaline Phosphatase 84 U/L (45-117); Anion Gap 5 (5-15); BUN 19 mg/dL (7-18); BUN/Creat Ratio 17.1 RATIO (10-20); Calcium,Total 8.4 mg/dL (8.5-10.1); Chloride 105 mmol/L (98-107); Creatinine, Serum 1.11 mg/dL (0.55-1.02); EST Glomerular Filtration Rate 50 mL/min (>60); Est Glom Filt Rate - Afr Amer 60 mL/min (>60); Estimated Creatinine Clearance 34.69 ml/min; Globulin 3.2 g/dL (2.2-4.2); Glucose 123 mg/dL (74-106); Potassium 3.6 mmol/L (3.5-5.1); Protein, Total 5.8 g/dL (6.4-8.2); Sodium Level 143 mmol/L (136-145)
[2020-01-08 06:51] LABS: Bedside Glucose 139 mg/dL (70-110)
[2020-01-08] MEDS: Albuterol 2.5 MG/3 ML VIAL.NEB. INHALATION ×4 (07:16→19:04)
--- NOTE | 2020-01-08 08:16 | PN_ITS ---
Patient Problems: Active and Suspected Problems (Last Reviewed 05/21/18 @ 13:47 by Kirti Richardson) Fall at home (Acute) Fracture of femoral neck, left, closed (Acute) Subjective: Patient tolerated surgery well. No overnight issues were reported. Patient reports the pain is well controlled at this time. Patient tolerating her basel ine 3 L nasal cannula with sleep. No significant cough was noted overnight. Patient was unaware of the incentive spirometer - Physical Exam Vitals/I&O's: Vital Signs Temp Pulse Resp BP Pulse Ox 37.2 C 63 16 102/53 L 92 01/08/20 05:17 01/08/20 07:16 01/08/20 07:16 01/08/20 05:17 01/08/20 07:16 Oxygen Flow Rate (L/min) 3.5 Oxygen Delivery Method Nasal Cannula Weight: 72.9 kg Body Mass Index (BMI) 25.0 Intake and Output for Last 24 Hours 01/06/20 01/07/20 01/08/20 23:59 23:59 23:59 Intake Total 720 / 720 75 / 75 Output Total 700 / 900 2475 / 2475 150 / 150 Balance -700 / -750 -1755 / -1755 -75 / -75 General: Alert, Cooperative, Confused, Disoriented, - - Appears stated age. No conversational dyspnea. HEENT: Atraumatic, PERRLA, EOMI, - - No scleral icterus or injection noted Oral: Moist Mucosa, No Gingival or Mucosal Lesions/ Ulcerations Neck: Supple, No JVD, No Nodes, Trachea Midline Lungs: No rhonchi, No wheeze, No rales, Diminished, - - Fair effort Cardiovascular: Normal S1, Normal S2, Irregular Rate, Murmur - Less pronounced today, No rub noted, No Gallop Abdomen: Bowel Sounds Present, Soft, Non Tender, Non-Distended Extremities: No clubbing, No cyanosis, Edema Skin: Incision - Clean, dry and intact Musculoskeletal: No Tenderness to Palpation of Joints or Extremities Lymphatic: No Cervical, Supraclavicular, or Inguinal Adenopathy Neurological: Cranial nerves II-XII grossly intact, Neuro grossly intact, Motor Exam 5/5 strength throughout Psych/Mental Status: Normal Affect, Appropriate Laboratory Results 01/07/20 09:28: POC Glucose 118 H 01/07/20 10:09: POC PT 18.9 H, INR 1.50 01/07/20 12:32: POC Glucose 97 01/07/20 17:59: POC Glucose 98 01/07/20 21:31: POC Glucose 129 H 01/08/20 05:38: WBC 12.2 H, RBC 3.38 L, Hgb 10.5 L, Hct 33.5 L, MCV 99.1 H, MCH 31.1, MCHC 31.3 L, RDW Std Deviation 50.7 H, RDW Coeff of Concepcion 14.0, Plt Count 129 L, MPV 11.9, Immature Gran % (Auto) 0.400, Neut % (Auto) 83.6 H, Lymph % (Auto) 8.6 L, [place] % (Auto) 4.9, Eos % (Auto) 2.3, Baso % (Auto) 0.2, Absolute Neuts (auto) 10.2 H, Absolute Lymphs (auto) 1.05, Nucleated RBC % 0 01/08/20 05:38: PT 16.2 H, INR 1.4 01/08/20 05:38: Sodium 143, Potassium 3.6, Chloride 105, Carbon Dioxide 33.0 H, Anion Gap 5, BUN 19 H, Creatinine 1.11 H, Estim Creat Clear Calc 34.69, Est GFR (MDRD) Af Amer 60, Est GFR (MDRD) Non-Af 50 L, BUN/Creatinine Ratio 17.1, Glucose 123 H, Calcium 8.4 L, Total Bilirubin 1.80 H, AST 54 H, ALT 37, Alkaline Phosphatase 84, Total Protein 5.8 L, Albumin 2.6 L, Globulin 3.2, Albumin/Cora bulin Ratio 0.8 L 01/08/20 06:48: POC Glucose 139 H Current Medications Acetaminophen (Tylenol) 1,000 mg PO Q8 [facility] Last Admin: 01/08/20 05:20 Dose: 1,000 mg Documented by: Albuterol Sulfate (Ventolin Aerosols) 2.5 mg INHALATION Q4HWA.RT [facility] Last Admin: 01/08/20 07:16 Dose: 2.5 mg Documented by: Amiodarone HCl (Cordarone) 200 mg PO DAILY [facility] Last Admin: 01/07/20 16:49 Dose: Not Given Documented by: Cholecalciferol (Vitamin D (25mcg)) 3,000 unit PO DAILY [facility] Last Admin: 01/07/20 15:04 Dose: Not Given Documented by: Dextrose (D50w Syringe) 0 gm IV X1 PRN; Protocol PRN Reason: Hypoglycemia Glucagon () 1 mg IM .X1 PRN PRN Reason: Hypoglycemia Sodium Chloride () 250 mls @ 15 mls/hr IV .[id number] PRN PRN Reason: Saline Flush Sodium Chloride () 250 mls @ 15 mls/hr IV .[id number] PRN PRN Reason: Additional IVPB Infusion Cefazolin Sodium () 1 gm in 50 mls @ 100 mls/hr IV Q8H [facility] Last Infusion: 01/08/20 05:50 Dose: Infused Documented by: Levothyroxine Sodium (Synthroid) 25 mcg PO DAILY@0600 [facility] Last Admin: 01/08/20 05:20 Dose: 25 mcg Documented by: Metoprolol Tartrate (Lopressor (Beta Denise)) 25 mg PO BID [facility] Last Admin: 01/07/20 21:34 Dose: 25 mg Documented by: Morphine Sulfate () 2 mg IV Q3H PRN PRN PRN Reason: Pain Score 6-10/10 Last Admin: 01/07/20 09:29 Dose: 2 mg Documented by: Ondansetron HCl (Zofran) 4 mg IV Q8H PRN PRN PRN Reason: NAUSEA/VOMITING Oxycodone HCl (Oxyir) 5 mg PO Q6H PRN PRN PRN Reason: Pain Score 6-10/10 Senna/Docusate Sodium (Senokot-S, Raquel-Colace) 2 tablet PO BID [facility] Last Admin: 01/07/20 21:35 Dose: 2 tablet Documented by: Sodium Chloride () 10 - 40 ml IV UD PRN PRN Reason: SALINE FLUSH Last Admin: 01/07/20 09:29 Dose: 20 ml Documented by: Clinical Impression(s) from Imaging Studies Hip X-Ray 01/07/20 12:41 IMPRESSION: New left hip hardware. Electronically Signed: Tyrone Kirby MD at 16:00 EDT , Service support , Medical Necessity - Tobacco Use Smoking Status: Never smoker Tobacco Use: Non-smoker Assessment/Plan All Active Problems (Last Reviewed 05/21/18 @ 13:47 by Kirti Richardson) Fall at home (Acute) Fracture of femoral neck, left, closed (Acute) nursing home (current) use of anticoagulants (Acute) Community acquired pneumonia (Resolved) Hypoxia (Resolved) RECOMMENDATIONS: 1. Likely okay to hold on aggressive diuresis at this point 2. Okay to reinitiate Coumadin from my perspective 3. Monitor oxygen during physical and Occupational Therapy 4. Wean oxygen as tolerated 5. Encourage incentive spirometer 6. Okay to transfer to rehab from my perspective IMPRESSIONS: 1. Acute hypoxic respiratory failure Clinical suspicion for an element of congestive heart failure leading to acute hypoxic respiratory failure. Patient responded well to diuretic therapy. Clinical suspicion for an element of diastolic congestive heart failure secondary to aortic stenosis with a volume overloaded state. Patient has responded well to diuresis. Patient has an element of contraction alkalosis, so would not continue with diuretic therapy for now. 2. Acute left subcapsular femoral neck fracture secondary to mechanical fall postop day #1 Orthopedics has been consulted. Patient appears to be doing well. Patient should have saturations monitored during therapy. 3. Chronic A. fib/iatrogenic coagulopathy Echocardiogram shows both aortic stenosis and pulmonary hypertension. Patient does not have a history of smoking, so doubt COPD. Patient likely had an element of fluid overload leading to groundglass opacities. Patient is not reporting any fever, exposure or cough to suggest COVID 19. Elevated white count likely secondary to stress response. Patient has had a significant decrease in hemoglobin by 3 g, but has remained hemodynamically stable. Reasonable to recheck tomorrow or with hypotension. 4. Hypertension/hypothyroidism/osteoporosis/probable dementia/advanced age Complicates care, management, recovery and prognosis. Okay to continue baseline medications from my perspective. Patient may benefit from a dementia work-up as an outpatient. Inpatient E&M: [id number] Subs Hosp L2
[2020-01-08] MEDS: Senna/Docusate Sodium 1 Tablet 2 TABLET PO ×2 (10:55→22:21)
[2020-01-08] MEDS: Amiodarone 200 MG Tablet PO (10:55)
[2020-01-08] MEDS: oxyCODONE 5 MG Tablet PO (11:21)
--- NOTE | 2020-01-08 11:54 | NURSING ---
Pt up with therapy. This nurse in watching pt get up. when she stood up, pt stated, I feel dizzy. Got to chair and pt closed eyes and did not respond. Pt still breathing/had pulse. Physical Therapy reclined chair all the way back. Cold Wash cloth on head/neck. Vitals obtained, see intervention. Started mumbling but kept eyes closed. When asked to open eyes pt refused. Vitals taken and called Dr. Conn in the room as she was out on the unit. Dr. Conn aware of episode and that she recently had oxycodone for pain.
--- NOTE | 2020-01-08 12:24 | PN.ORTHO_ITS ---
Patient Problems: Active and Suspected Problems (Last Reviewed 05/21/18 @ 13:47 by Kirti Richardson) Fall at home (Acute) Fracture of femoral neck, left, closed (Acute) Subjective: spoke with patients nurse. Her pain has been controlled she did have a 5 mg oxycodone which may have caused her to gets some lightheadedness when up with PT with possible vasovagal event so this was discontinued. Otherwise no concerns - Physical Exam Vitals/I&O's: Vital Signs Temp Pulse Resp BP Pulse Ox 97.3 F L 72 20 H 110/49 L 95 01/08/20 11:40 01/08/20 11:40 01/08/20 11:40 01/08/20 11:40 01/08/20 11:40 Oxygen Flow Rate (L/min) 3 Oxygen Delivery Method Nasal Cannula Weight: 160 lb 11.472 oz Body Mass Index (BMI) 25.0 Intake and Output for Last 24 Hours 01/06/20 01/07/20 01/08/20 23:59 23:59 23:59 Intake Total 720 / 720 75 / 75 Output Total 700 / 900 2475 / 2475 150 / 150 Balance -700 / -750 -1755 / -1755 -75 / -75 Extremities: - - Reported concerns from nursing. Specifically she is able to extend her foot and great toe and plantarflex Laboratory Results 01/07/20 09:28: POC Glucose 118 H 01/07/20 10:09: POC PT 18.9 H, INR 1.50 01/07/20 12:32: POC Glucose 97 01/07/20 17:59: POC Glucose 98 01/07/20 21:31: POC Glucose 129 H 01/08/20 05:38: WBC 12.2 H, RBC 3.38 L, Hgb 10.5 L, Hct 33.5 L, MCV 99.1 H, MCH 31.1, MCHC 31.3 L, RDW Std Deviation 50.7 H, RDW Coeff of Concepcion 14.0, Plt Count 129 L, MPV 11.9, Immature Gran % (Auto) 0.400, Neut % (Auto) 83.6 H, Lymph % (Auto) 8.6 L, [place] % (Auto) 4.9, Eos % (Auto) 2.3, Baso % (Auto) 0.2, Absolute Neuts (auto) 10.2 H, Absolute Lymphs (auto) 1.05, Nucleated RBC % 0 01/08/20 05:38: PT 16.2 H, INR 1.4 01/08/20 05:38: Sodium 143, Potassium 3.6, Chloride 105, Carbon Dioxide 33.0 H, Anion Gap 5, BUN 19 H, Creatinine 1.11 H, Estim Creat Clear Calc 34.69, Est GFR (MDRD) Af Amer 60, Est GFR (MDRD) Non-Af 50 L, BUN/Creatinine Ratio 17.1, Glucose 123 H, Calcium 8.4 L, Total Bilirubin 1.80 H, AST 54 H, ALT 37, Alkaline Phosphatase 84, Total Protein 5.8 L, Albumin 2.6 L, Globulin 3.2, Albumin/Globulin Ratio 0.8 L 01/08/20 06:48: POC Glucose 139 H Current Medications Acetaminophen (Tylenol) 1,000 mg PO Q8 [facility] Last Admin: 01/08/20 05:20 Dose: 1,000 mg Documented by: Albuterol Sulfate (Ventolin Aerosols) 2.5 mg INHALATION Q4HWA.RT [facility] Last Admin: 01/08/20 11:18 Dose: 2.5 mg Documented by: Amiodarone HCl (Cordarone) 200 mg PO DAILY [facility] Last Admin: 01/08/20 10:55 Dose: 200 mg Documented by: Cholecalciferol (Vitamin D (25mcg)) 3,000 unit PO DAILY [facility] Last Admin: 01/07/20 15:04 Dose: Not Given Documented by: Dextrose (D50w Syringe) 0 gm IV X1 PRN; Protocol PRN Reason: Hypoglycemia Glucagon () 1 mg IM .X1 PRN PRN Reason: Hypoglycemia Sodium Chloride () 250 mls @ 15 mls/hr IV .[id number] PRN PRN Reason: Saline Flush Sodium Chloride () 250 mls @ 15 mls/hr IV .[id number] PRN PRN Reason: Additional IVPB Infusion Cefazolin Sodium () 1 gm in 50 mls @ 100 mls/hr IV Q8H [facility] Last Infusion: 01/08/20 05:50 Dose: Infused Documented by: Levothyroxine Sodium (Synthroid) 25 mcg PO DAILY@0600 [facility] Last Admin: 01/08/20 05:20 Dose: 25 mcg Documented by: Metoprolol Tartrate (Lopressor (Beta Denise)) 25 mg PO BID [facility] Last Admin: 01/08/20 10:54 Dose: Not Given Documented by: Morphine Sulfate () 2 mg IV Q3H PRN PRN PRN Reason: Pain Score 6-10/10 Last Admin: 01/07/20 09:29 Dose: 2 mg Documented by: Ondansetron HCl (Zofran) 4 mg IV Q8H PRN PRN PRN Reason: NAUSEA/VOMITING Oxycodone HCl (Oxyir) 5 mg PO Q6H PRN PRN PRN Reason: Pain Score 6-10/10 Last Admin: 01/08/20 11:21 Dose: 5 mg Documented by: Senna/Docusate Sodium (Senokot-S, Raquel-Colace) 2 tablet PO BID [facility] Last Admin: 01/08/20 10:55 Dose: 2 tablet Documented by: Sodium Chloride () 10 - 40 ml IV UD PRN PRN Reason: SALINE FLUSH Last Admin: 01/07/20 09:29 Dose: 20 ml Documented by: Medical Necessity - Tobacco Use Smoking Status: Never smoker Tobacco Use: Non-smoker Assessment/Plan All Active Problems (Last Reviewed 05/21/18 @ 13:47 by Kirti Richardson) Fall at home (Acute) Fracture of femoral neck, left, closed (Acute) 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 Okay to resume anticoagulations per primary discretion Recommend 3 weeks of DVT prophylaxis in regards to hip surgery however she is on Coumadin preoperative anyway Hip precautions as reviewed by physical therapy. Dressing should be left on for 3 days then may be removed and showering may begin at that time. Then bandage should be replaced and cleaned daily if not showering daily at that time clean incision with Betadine and replace bandage. If showering using antibacterial soap just replace bandage after shower. No tub baths for 3 weeks. Linda should be removed in 2 weeks this can be done in my office or if she is in a transitional or rehab facility this can be done there. If this is done in 1 of these facilities she does not need to follow-up until 4 weeks postop. Call with any questions or concerns.
--- NOTE | 2020-01-08 12:40 | NURSING ---
Still feeling dizzy/lightheaded. Pt assisted back to bed.
[2020-01-08 13:00] LABS: Bedside Glucose 143 mg/dL (70-110)
[2020-01-08] MEDS: 0.9% Saline Lock 10 ML Syringe IV ×2 (13:18→16:08)
--- NOTE | 2020-01-08 13:30 | CASEMGMT ---
THOMAS spoke with patient, introduced self and role at [facility]. THOMAS talked with her about TCU at d/c. She agrees and understands she is not strong enough to go home. She said she is in a lot of pain and hopes they take it easy with her. She agreed to allow THOMAS to call her daughter, Marimar. THOMAS called Carrie and asked her to please start the pre-cert. THOMAS called patient's daughter, Marimar and let her know the plan. She was pleased with this plan. Plan: d/c to [facility] TCU pending insurance approval. Peyton HORNE
--- NOTE | 2020-01-08 15:16 | PCM.PN.HOSP ---
Patient Problems: Active and Suspected Problems (Last Reviewed 05/21/18 @ 13:47 by Kirti Richardson) Fall at home (Acute) Fracture of femoral neck, left, closed (Acute) Reason for Visit: Follow-up on hypoxic respiratory failure/right hip fracture. Subjective: Patient was seen and examined. She had pre-syncopal episode this morning after being given oxycodone. She had worked with physical therapy occupational therapy and had said at the end that she felt a little lightheaded. Denied any chest pain, dizziness or shortness of breath at time of being examined. She is on 3 L of oxygen. Pain is fairly controlled Objective: Physical exam: General: Alert, Oriented x3, Cooperative, No apparent distress HEENT: Atraumatic, PERRLA, EOMI, Normocephalic Oral: Moist Mucosa Neck: Supple Lungs: Clear to auscultation, Normal air movement Cardiovascular: Regular rate, Regular Rhythm, Normal S1, Normal S2, No murmurs Abdomen: Bowel Sounds Present, Soft, Non Tender, Non-Distended, No Hepato-splenomegaly Extremities: No edema Skin: No rashes Musculoskeletal: No Tenderness to Palpation of Joints or Extremities Lymphatic: No Cervical, Supraclavicular, or Inguinal Adenopathy Neurological: Cranial nerves II-XII grossly intact, Neuro grossly intact Psych/Mental Status: Normal Affect, Appropriate Vitals/I&O's: Vital Signs Temp Pulse Resp BP Pulse Ox 97.3 F L 70 20 H 110/49 L 95 01/08/20 11:40 01/08/20 13:45 01/08/20 11:40 01/08/20 11:40 01/08/20 11:40 Oxygen Flow Rate (L/min) 3 Oxygen Delivery Method Nasal Cannula Weight: 72.9 kg Body Mass Index (BMI) 25.0 Intake and Output for Last 24 Hours 01/06/20 01/07/20 01/08/20 23:59 23:59 23:59 Intake Total 720 / 720 365 / 365 Output Total 700 / 900 2475 / 2475 350 / 350 Balance -700 / -750 -1755 / -1755 Laboratory Results 01/07/20 09:28: POC Glucose 118 H 01/07/20 10:09: POC PT 18.9 H, INR 1.50 01/07/20 17:59: POC Glucose 98 01/07/20 21:31: POC Glucose 129 H 01/08/20 05:38: WBC 12.2 H, RBC 3.38 L, Hgb 10.5 L, Hct 33.5 L, MCV 99.1 H, MCH 31.1, MCHC 31.3 L, RDW Std Deviation 50.7 H, RDW Coeff of Concepcion 14.0, Plt Count 129 L, MPV 11.9, Immature Gran % (Auto) 0.400, Neut % (Auto) 83.6 H, Lymph % (Auto) 8.6 L, [place] % (Auto) 4.9, Eos % (Auto) 2.3, Baso % (Auto) 0.2, Absolute Neuts (auto) 10.2 H, Absolute Lymphs (auto) 1.05, Nucleated RBC % 0 01/08/20 05:38: PT 16.2 H, INR 1.4 01/08/20 05:38: Sodium 143, Potassium 3.6, Chloride 105, Carbon Dioxide 33.0 H, Anion Gap 5, BUN 19 H, Creatinine 1.11 H, Estim Creat Clear Calc 34.69, Est GFR (MDRD) Af Amer 60, Est GFR (MDRD) Non-Af 50 L, BUN/Creatinine Ratio 17.1, Glucose 123 H, Calcium 8.4 L, Total Bilirubin 1.80 H, AST 54 H, ALT 37, Alkaline Phosphatase 84, Total Protein 5.8 L, Albumin 2.6 L, Globulin 3.2, Albumin/Globulin Ratio 0.8 L 01/08/20 06:48: POC Glucose 139 H 01/08/20 11:19: POC Glucose 143 H Current Medications Acetaminophen (Tylenol) 1,000 mg PO Q8 [facility] Last Admin: 01/08/20 15:14 Dose: 1,000 mg Documented by: Albuterol Sulfate (Ventolin Aerosols) 2.5 mg INHALATION Q4HWA.RT [facility] Last Admin: 01/08/20 15:08 Dose: 2.5 mg Documented by: Amiodarone HCl (Cordarone) 200 mg PO DAILY [facility] Last Admin: 01/08/20 10:55 Dose: 200 mg Documented by: Cholecalciferol (Vitamin D (25mcg)) 3,000 unit PO DAILY [facility] Last Admin: 05/01/20 13:18 Dose: 3,000 unit Documented by: Dextrose (D50w Syringe) 0 gm IV X1 PRN; Protocol PRN Reason: Hypoglycemia Glucagon () 1 mg IM .X1 PRN PRN Reason: Hypoglycemia Sodium Chloride () 250 mls @ 15 mls/hr IV .[id number] PRN PRN Reason: Saline Flush Sodium Chloride () 250 mls @ 15 mls/hr IV .[id number] PRN PRN Reason: Additional IVPB Infusion Cefazolin Sodium () 1 gm in 50 mls @ 100 mls/hr IV Q8H [facility] Last Infusion: 01/08/20 14:00 Dose: Infused Documented by: Levothyroxine Sodium (Synthroid) 25 mcg PO DAILY@0600 [facility] Last Admin: 01/08/20 05:20 Dose: 25 mcg Documented by: Metoprolol Tartrate (Lopressor (Beta Denise)) 25 mg PO BID [facility] Last Admin: 01/08/20 10:54 Dose: Not Given Documented by: Morphine Sulfate () 2 mg IV Q3H PRN PRN PRN Reason: Pain Score 6-10/10 Last Admin: 01/07/20 09:29 Dose: 2 mg Documented by: Ondansetron HCl (Zofran) 4 mg IV Q8H PRN PRN PRN Reason: NAUSEA/VOMITING Senna/Docusate Sodium (Senokot-S, Raquel-Colace) 2 tablet PO BID [facility] Last Admin: 01/08/20 10:55 Dose: 2 tablet Documented by: Sodium Chloride () 10 - 40 ml IV UD PRN PRN Reason: SALINE FLUSH Last Admin: 01/08/20 13:18 Dose: 10 ml Documented by: STROKE Vital Signs/Narrative: Vital Signs Temp Pulse Resp BP Pulse Ox 01/08/20 13:45 70 01/08/20 11:40 97.3 F L 72 20 H 110/49 L 95 01/08/20 11:18 62 16 Medical Necessity - Tobacco Use Smoking Status: Never smoker Tobacco Use: Non-smoker Assessment/Plan All Active Problems (Last Reviewed 05/21/18 @ 13:47 by Kirti Richardson) Fall at home (Acute) Fracture of femoral neck, left, closed (Acute) shelter (current) use of anticoagulants (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 Acute hypoxic respiratory failure likely secondary to acute diastolic CHF/pulmonary hypertension Remains on 3 L of oxygen We will continue with aggressive pulmonary toileting, wean off for SPO2 more than 94% 2. POD #1, s/p left hip hemiarthroplasty for acute left subcapital femoral neck fracture secondary to mechanical fall H/o osteoporosis; Pain is fairly controlled Hold off on narcotic medications on account of presyncopal episode this morning Continue on scheduled Tylenol 3. Hypercoagulable state secondary to warfarin administration, resolved INR is 1.4, Coumadin will be resumed today. 4. Chronic atrial fibrillation, in NSR now, INR 1.4 Continue on coumadin, metoprolol, amiodarone 5. Hypertension, controlled, continue on metoprolol 6. Hypothyroidism, on levothyroxine 7. Osteoporosis, not on treatment, would need to be worked out in the outpatient 8. Cognitive impairment, no formal diagnosis of dementia 9. DVT prophylaxis - resumed on coumadin 10. CODE STATUS -DNR [facility] Inpatient E&M: 11821 Subs Hosp L2
--- NOTE | 2020-01-08 15:34 | PCA ---
Carrie from [facility] called and notified us that pt recieved precert to go there tomorrow, 01/09/2020.
[2020-01-08] MEDS: 0.9% Normal Saline 1,000 ML 100 ML IV (15:59)
[2020-01-08 16:21] LABS: Bedside Glucose 139 mg/dL (70-110)
--- NOTE | 2020-01-08 17:34 | NURSING ---
This nurse is aware of the Vital Signs that were taken by [employer].
[2020-01-08] MEDS: Metoprolol Tartrate 25 MG Tablet PO (22:20)
[2020-01-08 23:06] LABS: Bedside Glucose 119 mg/dL (70-110)
[2020-01-09] VITALS (17 sets, daily range): BP systolic 89–121; BP diastolic 48–64; PULSE 59–78; RESP 16–24; TEMP 36.5–37.8; O2SAT 91–97
[2020-01-09] MEDS: Acetaminophen 500 MG Tablet 1000 MG PO ×3 (05:59→21:34)
[2020-01-09] MEDS: Levothyroxine 25 MCG TABLET PO (06:00)
[2020-01-09 06:40] LABS: Bedside Glucose 110 mg/dL (70-110)
[2020-01-09 06:48] LABS: Absolute Lymphocyte Count 0.79 X10^3/uL (0.83-4.51); Basophil# 0.03 X10^3/uL; Basophil% 0.3 % (0-1); Eosinophil# 0.32 X10^3/uL; Hematocrit 30.2 % (37-47); Hemoglobin 9.6 g/dL (12.0-15.0); Lymphocyte # 0.79 X10^3/ul (4.0); Lymphocyte % 7.3 % (19-41); Mean Corp Hgb Conc 31.8 g/dL (32-36); Mean Corpuscular Hgb 31.3 pg (27.0-32.0); Mean Corpuscular Volume 98.4 fL (81-99); Mean Platelet Vol. 11.6 fl (6.2-12.0); Monocyte# 0.59 X10^3/uL; Monocyte% 5.5 % (0-10); NRBC Flagged by Analyzer 0 % (0-5); Neutrophil # 9.01 X10^3/uL (2.7-7.7); Neutrophil % 83.4 % (47-70); Platelet Count 120 K/mm3 (150-450); RBC Distribution Width CV 13.8 % (11.6-14.6); RBC Distribution Width SD 49.3 fl (35.1-43.9); Red Blood Count 3.07 M/mm3 (4.2-5.4); White Blood Count 10.8 K/mm3 (4.4-11.0)
[2020-01-09 06:58] LABS: International Normalized Ratio 1.3
[2020-01-09] MEDS: Albuterol 2.5 MG/3 ML VIAL.NEB. INHALATION ×3 (07:08→18:56)
[2020-01-09 07:12] LABS: ALB/GLOB Ratio 0.7 RATIO (0.9-2.4); AST(SGOT) 31 U/L (15-37); Alanine Aminotransfer ALT/SGPT 22 U/L (13-56); Albumin, Serum 2.2 g/dL (3.2-5.0); Alkaline Phosphatase 77 U/L (45-117); Anion Gap 4 (5-15); BUN 20 mg/dL (7-18); Calcium,Total 8.4 mg/dL (8.5-10.1); Chloride 103 mmol/L (98-107); Creatinine, Serum 0.83 mg/dL (0.55-1.02); EST Glomerular Filtration Rate 69 mL/min (>60); Est Glom Filt Rate - Afr Amer 84 mL/min (>60); Estimated Creatinine Clearance 46.39 ml/min; Globulin 3.3 g/dL (2.2-4.2); Glucose 117 mg/dL (74-106); Potassium 3.5 mmol/L (3.5-5.1); Protein, Total 5.5 g/dL (6.4-8.2); Sodium Level 140 mmol/L (136-145)
--- NOTE | 2020-01-09 07:58 | PCM.PN.PUL ---
Patient Problems: Active and Suspected Problems (Last Reviewed 05/21/18 @ 13:47 by Kirti Richardson) Fall at home (Acute) Fracture of femoral neck, left, closed (Acute) Subjective: Patient reports that she slept well overnight. No respiratory complaints have been reported at this time. Patient was relatively limited when working with therapy, but oxygenation has not been an issue. Patient has not been very compliant with incentive spirometer. Patient states pain is well controlled. - Physical Exam Vitals/I&O's: Vital Signs Temp Pulse Resp BP Pulse Ox 37.0 C 67 18 116/55 L 96 01/09/20 03:36 01/09/20 06:55 01/09/20 03:36 01/09/20 03:36 01/09/20 03:36 Oxygen Flow Rate (L/min) 3 Oxygen Delivery Method Nasal Cannula Weight: 73.1 kg Body Mass Index (BMI) 25.0 Intake and Output for Last 24 Hours 01/07/20 01/08/20 01/09/20 23:59 23:59 23:59 Intake Total 720 / 720 785 / 785 1400 / 1400 Output Total 2475 / 2475 500 / 500 405 / 405 Balance -1755 / -1755 285 / 285 995 / 995 General: Alert, Confused, Disoriented, - - No conversational dyspnea. HEENT: Atraumatic, PERRLA, EOMI, Normocephalic, - - No scleral icterus or injection noted Oral: Moist Mucosa, No Gingival or Mucosal Lesions/ Ulcerations Neck: Supple, No JVD, No Nodes, Trachea Midline Lungs: No rhonchi, No wheeze, No rales, Diminished, - - Fair effort. Symmetric expansion. Cardiovascular: Regular rate, Normal S1, Normal S2, Murmur, No rub noted, No Gallop Abdomen: Bowel Sounds Present, Soft, Non Tender, Non-Distended Extremities: No clubbing, No cyanosis, Edema - Trace left lower extremity Skin: - - No change compared to previous Musculoskeletal: No Tenderness to Palpation of Joints or Extremities Lymphatic: No Cervical, Supraclavicular, or Inguinal Adenopathy Neurological: Cranial nerves II-XII grossly intact, Neuro grossly intact, Motor Exam 5/5 strength throughout Psych/Mental Status: Appropriate, Flat Affect Laboratory Results 01/08/20 11:19: POC Glucose 143 H 01/08/20 16:13: POC Glucose 139 H 01/08/20 22:14: POC Glucose 119 H 01/09/20 06:27: WBC 10.8, RBC 3.07 L, Hgb 9.6 L, Hct 30.2 L, MCV 98.4, MCH 31.3, MCHC 31.8 L, RDW Std Deviation 49.3 H, RDW Coeff of Concepcion 13.8, Plt Count 120 L, MPV 11.6, Immature Gran % (Auto) 0.500, Neut % (Auto) 83.4 H, Lymph % (Auto) 7.3 L, [place] % (Auto) 5.5, Eos % (Auto) 3.0, Baso % (Auto) 0.3, Absolute Neuts (auto) 9.0 H, Absolute Lymphs (auto) 0.79 L, Nucleated RBC % 0 01/09/20 06:27: Sodium 140, Potassium 3.5, Chloride 103, Carbon Dioxide 33.0 H, Anion Gap 4 L, BUN 20 H, Creatinine 0.83, Estim Creat Clear Calc 46.39, Est GFR (MDRD) Af Amer 84, Est GFR (MDRD) Non-Af 69, BUN/Creatinine Ratio 24.0 H, Glucose 117 H, Calcium 8.4 L, Total Bilirubin 1.30 H, AST 31, ALT 22, Alkaline Phosphatase 77, Total Protein 5.5 L, Albumin 2.2 L, Globulin 3.3, Albumin/Globulin Ratio 0.7 L 01/09/20 06:27: PT 16.0 H, INR 1.3 01/09/20 06:36: POC Glucose 110 Current Medications Acetaminophen (Tylenol) 1,000 mg PO Q8 [facility] Last Admin: 01/09/20 05:59 Dose: 1,000 mg Documented by: Albuterol Sulfate (Ventolin Aerosols) 2.5 mg INHALATION Q4HWA.RT [facility] Last Admin: 01/09/20 07:08 Dose: 2.5 mg Documented by: Amiodarone HCl (Cordarone) 200 mg PO DAILY [facility] Last Admin: 01/08/20 10:55 Dose: 200 mg Documented by: Cholecalciferol (Vitamin D (25mcg)) 3,000 unit PO DAILY [facility] Last Admin: 01/08/20 13:18 Dose: 3,000 unit Documented by: Dextrose (D50w Syringe) 0 gm IV X1 PRN; Protocol PRN Reason: Hypoglycemia Glucagon () 1 mg IM .X1 PRN PRN Reason: Hypoglycemia Sodium Chloride () 250 mls @ 15 mls/hr IV .[id number] PRN PRN Reason: Saline Flush Sodium Chloride () 250 mls @ 15 mls/hr IV .[id number] PRN PRN Reason: Additional IVPB Infusion Levothyroxine Sodium (Synthroid) 25 mcg PO DAILY@0600 [facility] Last Admin: 01/09/20 06:00 Dose: 25 mcg Documented by: Metoprolol Tartrate (Lopressor (Beta Denise)) 25 mg PO BID [facility] Last Admin: 01/08/20 22:20 Dose: 25 mg Documented by: Morphine Sulfate () 2 mg IV Q3H PRN PRN PRN Reason: Pain Score 6-10/10 Last Admin: 01/07/20 09:29 Dose: 2 mg Documented by: Ondansetron HCl (Zofran) 4 mg IV Q8H PRN PRN PRN Reason: NAUSEA/VOMITING Senna/Docusate Sodium (Senokot-S, Raquel-Colace) 2 tablet PO BID [facility] Last Admin: 01/08/20 22:21 Dose: 2 tablet Documented by: Sodium Chloride () 10 - 40 ml IV UD PRN PRN Reason: SALINE FLUSH Last Admin: 01/08/20 16:08 Dose: 10 ml Documented by: Warfarin Sodium (Coumadin (Pbkc)) 2.5 mg PO DAILY@1700 [facility] Last Admin: 01/08/20 18:30 Dose: 2.5 mg Documented by: Medical Necessity - Tobacco Use Smoking Status: Never smoker Tobacco Use: Non-smoker Assessment/Plan All Active Problems (Last Reviewed 05/21/18 @ 13:47 by Kirti Richardson) Fall at home (Acute) Fracture of femoral neck, left, closed (Acute) 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 Likely okay to hold on aggressive diuresis at this point 2. Okay to reinitiate Coumadin from my perspective, but defer to orthopedics 3. Monitor oxygen during physical and Occupational Therapy 4. Wean oxygen as tolerated 5. Encourage incentive spirometer 6. Okay to transfer to rehab from my perspective 7. Likely okay to follow-up with PCP as an outpatient. Okay to see in pulmonary if requested IMPRESSIONS: 1. Acute hypoxic respiratory failure Clinical suspicion for an element of congestive heart failure leading to acute hypoxic respiratory failure. Patient responded well to diuretic therapy. Clinical suspicion for an element of diastolic congestive heart failure secondary to aortic stenosis with a volume overloaded state. Patient has responded well to diuresis. Patient has an element of contraction alkalosis, so would not continue with diuretic therapy for now. 2. Acute left subcapsular femoral neck fracture secondary to mechanical fall postop day #2 Orthopedics has been consulted. Patient appears to be doing well. Patient should have saturations monitored during therapy. 3. Chronic A. fib/iatrogenic coagulopathy Echocardiogram shows both aortic stenosis and pulmonary hypertension. Patient does not have a history of smoking, so doubt COPD. Patient likely had an element of fluid overload leading to groundglass opacities. Patient is not reporting any fever, exposure or cough to suggest COVID 19. Elevated white count likely secondary to stress response and is normalizing with time. Patient has had a significant decrease in hemoglobin by 4 g from admission, but has remained hemodynamically stable. Reasonable to recheck hemoglobin tomorrow or with hypotension. 4. Hypertension/hypothyroidism/osteoporosis/probable dementia/advanced age Complicates care, management, recovery and prognosis. Okay to continue baseline medications from my perspective. Patient may benefit from a dementia work-up as an outpatient. Inpatient E&M: [id number] [facility] Hosp L2
[2020-01-09] MEDS: Senna/Docusate Sodium 1 Tablet 2 TABLET PO (09:19)
[2020-01-09] MEDS: Amiodarone 200 MG Tablet PO (09:19)
[2020-01-09] MEDS: Metoprolol Tartrate 25 MG Tablet PO ×2 (09:20→21:33)
--- NOTE | 2020-01-09 09:34 | RAD_ITS ---
STUDY: X-RAY CHEST REASON FOR EXAM: Female, 84 years old. SOB TECHNIQUE: Frontal view COMPARISON: January 06, 2020 FINDINGS: The lungs are expanded. Mild basilar atelectasis. Mild cardiomegaly. Normal mediastinum and kwaku. Normal visualized pulmonary arteries. Calcified visualized aortic arch and descending thoracic aorta. Normal visualized thoracic spine. Normal visualized ribs, clavicles, and shoulders. There is no demonstrated abnormality of the visualized soft tissue structures of the upper abdomen. RAD/Chest 1 View (Portable) IMPRESSION: Mild basilar atelectasis. Mild cardiomegaly. Electronically Signed: Wilber Del Valle DO at 14:21 EDT Tel [phone], Service support ,
[2020-01-09] MEDS: 0.9% Saline Lock 10 ML Syringe IV (10:02)
[2020-01-09 11:40] LABS: Bedside Glucose 154 mg/dL (70-110)
--- NOTE | 2020-01-09 11:41 | TREXTCAR_ITS ---
- Diet 01/08/20 09:16 Diet: Low fat, low salt diet Is pt able to select menu?: Yes - Routine Orders/Code Status Keep PO Greater than or Equal to (%): 94 - Encourage use of incentive spirometer Routine Lab Work: CBC - within 3 days, BMP - withi 3 days, INR - daily Code Status: DNRCC-A - Wound(s) HIP LEFT Wound Type: Surgical Incision - Therapies Weight Bearing: Weight bearing as tolerated Physical Therapy: Eval and Treat Occupational Therapy: Eval and Treat - Problem/Diagnosis (1) Fall at home Status: Acute Current Visit: Yes (2) Fracture of femoral neck, left, closed Status: Acute Current Visit: Yes (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 Status: Acute Current Visit: No (4) Chronic atrial fibrillation Status: Chronic Current Visit: Yes (5) Hypertension Status: Chronic Current Visit: No (6) COPD (chronic obstructive pulmonary disease) Status: Chronic Current Visit: Yes (7) Hypothyroidism Status: Chronic Current Visit: No - Allergies/Procedures Done in Hospital Allergies/Adverse Reactions: Allergies budesonide [From Symbicort] Allergy (Verified 01/06/20 12:02) Unknown diltiazem [From Cardizem] Allergy (Verified 01/06/20 12:02) Unknown formoterol [From Symbicort] Allergy (Verified 01/06/20 12:02) Unknown Procedures: - - s/p left hip arthroplasty - Type of Care/Length of Stay Estimated LOS: Convalescent Care Less Than 30 days Type of Care Needed: Skilled Rehab Potential: Good Prognosis: Good - Additional Orders/Day of Discharge Additional Orders: Consider Lasix prn for weight gain. Daily weights, encourage use of incentive spirometer. Day of Discharge: 01/09/20 - Dietary and Speech Recommendations Dietitian Recommendations/Changes: Advance diet as tolerated to regular after surgery. Ensure Enlive 120mL 4x/day after surgery. - Follow Up Care Primary Care Physician: Patel Garcia MD [Primary Care Provider] - Please follow up with your Primary Care Physician in: within 1-2 weeks Please Follow Up With: Samuel Adams MD When: within 2 weeks
[2020-01-09] MEDS: 0.9% Normal Saline 1,000 ML 75 ML IV (14:35)
--- NOTE | 2020-01-09 15:08 | PCM.PN.HOSP ---
Patient Problems: Active and Suspected Problems (Last Reviewed 05/21/18 @ 13:47 by Kirti Richardson) Fall at home (Acute) Fracture of femoral neck, left, closed (Acute) Reason for Visit: Follow-up on hypoxic respiratory failure/right hip fracture. Subjective: Patient seen and examined. Orthostatic vitals are positive. Patient complains of dry mouth. Urine output is marginal. Objective: Physical exam: General: Alert, Oriented x3, Cooperative, No apparent distress HEENT: Atraumatic, PERRLA, EOMI, Normocephalic Oral: Moist Mucosa Neck: Supple Lungs: Clear to auscultation, Normal air movement Cardiovascular: Regular rate, Regular Rhythm, Normal S1, Normal S2, No murmurs Abdomen: Bowel Sounds Present, Soft, Non Tender, Non-Distended, No Hepato-splenomegaly Extremities: No edema Skin: No rashes Musculoskeletal: No Tenderness to Palpation of Joints or Extremities Lymphatic: No Cervical, Supraclavicular, or Inguinal Adenopathy Neurological: Cranial nerves II-XII grossly intact, Neuro grossly intact Psych/Mental Status: Normal Affect, Appropriate Vitals/I&O's: Vital Signs Temp Pulse Resp BP Pulse Ox 97.7 F L 62 18 116/52 L 95 01/09/20 09:18 01/09/20 12:37 01/09/20 09:18 01/09/20 12:37 01/09/20 09:18 Oxygen Flow Rate (L/min) 3 Oxygen Delivery Method Nasal Cannula Weight: 73.1 kg Body Mass Index (BMI) 25.0 Orthostatic Vital Signs Start: 01/09/20 08:01 Freq: q24h Status: Active Protocol: Activity Type Activity Date Activity User E-Sign Co-Sign Detail Recorded Client Recorded Date Recorded By Document 01/09/20 12:37 [id number] 01/09/20 12:52 [facility] 01/09/20 12:37 Orthostatic Vitals Standing -Blood Pressure (90/60-120/80) 89/48 L -Extremity Use Right Arm -Pulse Rate (60-100) 68 Sitting -Blood Pressure (90/60-120/80) 115/54 L -Extremity Use Right Arm -Pulse Rate (60-100) 62 Lying -Blood Pressure (90/60-120/80) 116/52 L -Extremity Use Right Arm -Pulse Rate (60-100) 62 Intake and Output for Last 24 Hours 01/07/20 01/08/20 01/09/20 23:59 23:59 23:59 Intake Total 720 / 720 785 / 785 2019 Output Total 2475 / 2475 500 / 500 580 / 580 Balance -1755 / -1755 285 / 285 1440 / 1440 Laboratory Results 01/08/20 16:13: POC Glucose 139 H 01/08/20 22:14: POC Glucose 119 H 01/09/20 06:27: WBC 10.8, RBC 3.07 L, Hgb 9.6 L, Hct 30.2 L, MCV 98.4, MCH 31.3, MCHC 31.8 L, RDW Std Deviation 49.3 H, RDW Coeff of Concepcion 13.8, Plt Count 120 L, MPV 11.6, Immature Gran % (Auto) 0.500, Neut % (Auto) 83.4 H, Lymph % (Auto) 7.3 L, Blanco % (Auto) 5.5, Eos % (Auto) 3.0, Baso % (Auto) 0.3, Absolute Neuts (auto) 9.0 H, Absolute Lymphs (auto) 0.79 L, Nucleated RBC % 0 01/09/20 06:27: Sodium 140, Potassium 3.5, Chloride 103, Carbon Dioxide 33.0 H, Anion Gap 4 L, BUN 20 H, Creatinine 0.83, Estim Creat Clear Calc 46.39, Est GFR (MDRD) Af Amer 84, Est GFR (MDRD) Non-Af 69, BUN/Creatinine Ratio 24.0 H, Glucose 117 H, Calcium 8.4 L, Total Bilirubin 1.30 H, AST 31, ALT 22, Alkaline Phosphatase 77, Total Protein 5.5 L, Albumin 2.2 L, Globulin 3.3, Albumin/Globulin Ratio 0.7 L 01/09/20 06:27: PT 16.0 H, INR 1.3 01/09/20 06:36: POC Glucose 110 01/09/20 11:32: POC Glucose 154 H Current Medications Acetaminophen (Tylenol) 1,000 mg PO Q8 [facility] Last Admin: 01/09/20 12:53 Dose: 1,000 mg Documented by: Albuterol Sulfate (Ventolin Aerosols) 2.5 mg INHALATION Q4HWA.RT [facility] Last Admin: 01/09/20 11:17 Dose: Not Given Documented by: Amiodarone HCl (Cordarone) 200 mg PO DAILY [facility] Last Admin: 01/09/20 09:19 Dose: 200 mg Documented by: Cholecalciferol (Vitamin D (25mcg)) 3,000 unit PO DAILY [facility] Last Admin: 01/09/20 09:19 Dose: 3,000 unit Documented by: Dextrose (D50w Syringe) 0 gm IV X1 PRN; Protocol PRN Reason: Hypoglycemia Glucagon () 1 mg IM .X1 PRN PRN Reason: Hypoglycemia Sodium Chloride () 250 mls @ 15 mls/hr IV .[id number] PRN PRN Reason: Saline Flush Sodium Chloride () 250 mls @ 15 mls/hr IV .[id number] PRN PRN Reason: Additional IVPB Infusion Sodium Chloride () 1,000 mls @ 75 mls/hr IV .[id number] [facility] Stop: 01/09/20 20:04 Last Admin: 01/09/20 14:35 Dose: 75 mls/hr Documented by: Levothyroxine Sodium (Synthroid) 25 mcg PO DAILY@0600 [facility] Last Admin: 01/09/20 06:00 Dose: 25 mcg Documented by: Metoprolol Tartrate (Lopressor (Beta Denise)) 25 mg PO BID [facility] Last Admin: 01/09/20 09:20 Dose: 25 mg Documented by: Ondansetron HCl (Zofran) 4 mg IV Q8H PRN PRN PRN Reason: NAUSEA/VOMITING Senna/Docusate Sodium (Senokot-S, Raquel-Colace) 2 tablet PO BID [facility] Last Admin: 01/09/20 09:19 Dose: 2 tablet Documented by: Sodium Chloride () 10 - 40 ml IV UD PRN PRN Reason: SALINE FLUSH Last Admin: 01/09/20 10:02 Dose: 10 ml Documented by: Warfarin Sodium (Coumadin (Pbkc)) 2.5 mg PO DAILY@1700 [facility] Last Admin: 01/08/20 18:30 Dose: 2.5 mg Documented by: STROKE Vital Signs/Narrative: Vital Signs Pulse Pulse Pulse Pulse BP BP BP 01/09/20 12:37 62 62 68 116/52 L 115/54 L 89/48 L 01/09/20 11:49 59 L Medical Necessity - Tobacco Use Smoking Status: Never smoker Tobacco Use: Non-smoker Assessment/Plan All Active Problems (Last Reviewed 05/21/18 @ 13:47 by Kirti Richardson) Fall at home (Acute) Fracture of femoral neck, left, closed (Acute) 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 Orthostatic hypotension secondary to Lasix Given 1L of IVF, still orthostatic Will continue gentle IVF 2. Acute hypoxic respiratory failure likely secondary to acute diastolic CHF/pulmonary hypertension On 3 L of oxygen, continue with aggressive pulmonary toileting, wean off for SPO2 more than 94% 3. POD #2, s/p left hip hemiarthroplasty for acute left subcapital femoral neck fracture secondary to mechanical fall H/o osteoporosis; Pain is fairly controlled Hold off on narcotic medications on account of presyncopal episode this morning Continue on scheduled Tylenol 4. Hypercoagulable state secondary to warfarin administration, resolved INR is 1.3, on Coumadin 5. Chronic atrial fibrillation, in NSR now, INR 1.3 Continue on Coumadin, metoprolol, amiodarone 6. Hypertension, controlled, continue on metoprolol 7. Hypothyroidism, on levothyroxine 8. Osteoporosis, not on treatment, would need to be worked out in the outpatient 9. Cognitive impairment, no formal diagnosis of dementia 10. DVT prophylaxis - on coumadin 11. CODE STATUS -DNR [facility] Inpatient E&M: 80849 Subs Hosp L2
[2020-01-09 17:15] LABS: Bedside Glucose 107 mg/dL (70-110)
[2020-01-10] VITALS (13 sets, daily range): BP systolic 109–135; BP diastolic 50–68; PULSE 60–73; RESP 16–24; TEMP 36.2–37.4; O2SAT 88–95
[2020-01-10] MEDS: Acetaminophen 500 MG Tablet 1000 MG PO ×2 (05:32→13:39)
[2020-01-10] MEDS: Levothyroxine 25 MCG TABLET PO (05:32)
[2020-01-10] MEDS: Albuterol 2.5 MG/3 ML VIAL.NEB. INHALATION ×3 (07:04→15:39)
[2020-01-10 07:30] LABS: International Normalized Ratio 1.5; Prothrombin Time (Protime)PT. 17.8 SECONDS (11.7-14.9)
--- NOTE | 2020-01-10 08:26 | PN_ITS ---
Patient Problems: Active and Suspected Problems (Last Reviewed 05/21/18 @ 13:47 by Kirti Richardson) Fall at home (Acute) Fracture of femoral neck, left, closed (Acute) Subjective: Patient is doing well from a respiratory standpoint and maintaining on her 3 L nasal cannula. However, patient appears to be more confused this morning. P srini did not recognize me and had forgotten that she had surgery. Patient was also frustrated that her phone did not work and the nurses forget about me over here. - Physical Exam Vitals/I&O's: Vital Signs Temp Pulse Resp BP Pulse Ox 37.4 C H 70 16 129/58 H 95 01/10/20 05:22 01/10/20 06:56 01/10/20 05:22 01/10/20 05:22 01/10/20 05:22 Oxygen Flow Rate (L/min) 3 Oxygen Delivery Method Nasal Cannula Weight: 73.3 kg Body Mass Index (BMI) 25.0 Orthostatic Vital Signs Start: 01/09/20 08:01 Freq: q24h Status: Active Protocol: Activity Type Activity Date Activity User E-Sign Co-Sign Detail Recorded Client Recorded Date Recorded By Document 01/10/20 05:08 BENJAMIN [id number] 01/10/20 05:19 KK 01/10/20 05:08 Orthostatic Vitals Standing -Blood Pressure (90/60-120/80) 109/59 L -Extremity Use Right Arm -Pulse Rate (60-100) 66 Sitting -Blood Pressure (90/60-120/80) 125/50 H -Extremity Use Right Arm -Pulse Rate (60-100) 66 Lying -Blood Pressure (90/60-120/80) 129/58 H -Extremity Use Right Arm -Pulse Rate (60-100) 64 Intake and Output for Last 24 Hours 01/08/20 01/09/20 01/10/20 23:59 23:59 23:59 Intake Total 785 / 785 2560 / 2560 1068.75 / 1068.75 Output Total 500 / 500 580 / 580 Balance 285 / 285 1979 / 1979 1068.75 / 1068.75 General: Alert, Confused, Disoriented, - - No conversational dyspnea noted. HEENT: Atraumatic, PERRLA, EOMI, Normocephalic, - - No scleral icterus or injection noted Oral: Moist Mucosa, No Gingival or Mucosal Lesions/ Ulcerations Neck: Supple, No JVD, No Nodes, Trachea Midline Lungs: No rhonchi, No wheeze, Diminished, Rales - Bilateral bases, - - Symmetric expansion. Cardiovascular: Normal S1, Normal S2, Irregular Rate, Murmur, No rub noted, No Gallop Abdomen: Bowel Sounds Present, Soft, Non Tender, Non-Distended Extremities: No clubbing, No cyanosis, No edema, Capillary Refill Less than 3 Seconds Skin: No rashes, Incision - Clean, dry and intact Musculoskeletal: No Tenderness to Palpation of Joints or Extremities Lymphatic: No Cervical, Supraclavicular, or Inguinal Adenopathy Neurological: Cranial nerves II-XII grossly intact, Neuro grossly intact, Motor Exam 5/5 strength throughout Psych/Mental Status: Impulsive, Restless Laboratory Results 01/09/20 11:32: POC Glucose 154 H 01/09/20 16:46: POC Glucose 107 01/10/20 07:00: PT 17.8 H, INR 1.5 Current Medications Acetaminophen (Tylenol) 1,000 mg PO Q8 [facility] Last Admin: 01/10/20 05:32 Dose: 1,000 mg Documented by: Albuterol Sulfate (Ventolin Aerosols) 2.5 mg INHALATION Q4HWA.RT [facility] Last Admin: 01/09/20 18:56 Dose: 2.5 mg Documented by: Amiodarone HCl (Cordarone) 200 mg PO DAILY [facility] Last Admin: 01/09/20 09:19 Dose: 200 mg Documented by: Cholecalciferol (Vitamin D (25mcg)) 3,000 unit PO DAILY [facility] Last Admin: 01/09/20 09:19 Dose: 3,000 unit Documented by: Dextrose (D50w Syringe) 0 gm IV X1 PRN; Protocol PRN Reason: Hypoglycemia Glucagon () 1 mg IM .X1 PRN PRN Reason: Hypoglycemia Sodium Chloride () 250 mls @ 15 mls/hr IV .[id number] PRN PRN Reason: Saline Flush Sodium Chloride () 250 mls @ 15 mls/hr IV .[id number] PRN PRN Reason: Additional IVPB Infusion Levothyroxine Sodium (Synthroid) 25 mcg PO DAILY@0600 [facility] Last Admin: 01/10/20 05:32 Dose: 25 mcg Documented by: Metoprolol Tartrate (Lopressor (Beta Denise)) 25 mg PO BID [facility] Last Admin: 01/09/20 21:33 Dose: 25 mg Documented by: Ondansetron HCl (Zofran) 4 mg IV Q8H PRN PRN PRN Reason: NAUSEA/VOMITING Senna/Docusate Sodium (Senokot-S, Raquel-Colace) 2 tablet PO BID [facility] Last Admin: 01/09/20 21:35 Dose: Not Given Documented by: Sodium Chloride () 10 - 40 ml IV UD PRN PRN Reason: SALINE FLUSH Last Admin: 01/09/20 10:02 Dose: 10 ml Documented by: Warfarin Sodium (Coumadin (Pbkc)) 2.5 mg PO DAILY@1700 [facility] Last Admin: 01/09/20 16:49 Dose: 2.5 mg Documented by: Clinical Impression(s) from Imaging Studies Chest X-Ray 01/09/20 09:34 IMPRESSION: Mild basilar atelectasis. Mild cardiomegaly. Electronically Signed: Wilber Del Valle DO at 14:21 EDT Tel [phone], Service support , Medical Necessity - Tobacco Use Smoking Status: Never smoker Tobacco Use: Non-smoker Assessment/Plan All Active Problems (Last Reviewed 05/21/18 @ 13:47 by Kirti Richardson) Fall at home (Acute) Fracture of femoral neck, left, closed (Acute) skilled nursing (current) use of anticoagulants (Acute) Community acquired pneumonia (Resolved) Hypoxia (Resolved) RECOMMENDATIONS: 1. Consider a single dose of p.o. Lasix 2. Okay to reinitiate Coumadin from my perspective, but defer to orthopedics 3. Monitor oxygen during physical and Occupational Therapy 4. Wean oxygen as tolerated 5. Encourage incentive spirometer 6. Okay to transfer to rehab from my perspective 7. Likely okay to follow-up with PCP as an outpatient. Okay to see in pulmonary if requested, but not necessary from my perspective IMPRESSIONS: 1. Acute hypoxic respiratory failure Clinical suspicion for an element of congestive heart failure leading to acute hypoxic respiratory failure initially. Patient responded well to diuretic therapy. Clinical suspicion for an element of diastolic congestive heart failure secondary to aortic stenosis with a volume overloaded state. Patient has responded well to diuresis. Inaccurate I's and O's throughout hospitalization, but weight is slightly up. 2. Acute left subcapsular femoral neck fracture secondary to mechanical fall postop day #3 Orthopedics has been consulted. Patient appears to be doing well. Patient should have saturations monitored during therapy. 3. Chronic A. fib/iatrogenic coagulopathy Echocardiogram shows both aortic stenosis and pulmonary hypertension. Patient does not have a history of smoking, so doubt COPD. Patient likely had an element of fluid overload leading to groundglass opacities. Patient is not reporting any fever, exposure or cough to suggest COVID 19. Elevated white count likely secondary to stress response and is normalizing with time. Patient has had a significant decrease in hemoglobin by 4 g from admission, but has remained hemodynamically stable. 4. Hypertension/hypothyroidism/osteoporosis/probable dementia/advanced age Complicates care, management, recovery and prognosis. Okay to continue baseline medications from my perspective. Patient may benefit from a dementia work-up as an outpatient. Inpatient E&M: 64892 Subs Hosp L2
[2020-01-10] MEDS: Metoprolol Tartrate 25 MG Tablet PO (08:39)
[2020-01-10] MEDS: Amiodarone 200 MG Tablet PO (08:39)
--- NOTE | 2020-01-10 11:03 | NURSING ---
Report called to Alexandrea in ICU
--- NOTE | 2020-01-10 11:10 | NURSING ---
This RN entered room to find pt on the floor. This RN immediately pressed staff assist button and tended to pt. short filler bunch machine operator Mayda and Nursing Train Master Cornell entered room shortly after and assisted this RN in getting pt back to bed. Leah MALONE into room at this time. BG checked, vs stable. Small gash to R of scalp cleaned. pt denies pain in that area. made aware of fall by pearl glue drier.
--- NOTE | 2020-01-10 11:16 | CT_ITS ---
STUDY: CT BRAIN WITHOUT CONTRAST REASON FOR EXAM: Female, 84 years old. FALL, LAC TO HEAD RADIATION DOSAGE (If Supplied By Facility): CTDIvol = ( 44.99 ) mGy, DLP = ( 769.11 ) mGycm TECHNIQUE: Transaxial CT imaging of the brain was performed without administration of intravenous contrast material. Individualized dose optimization techniques were used for this CT. COMPARISON: April 24, 2017 FINDINGS: Normal soft tissue structures. Normal calvarium. Normal size ventricles and extra-axial spaces for the patient''s age. Mild white matter microangiopathic ischemic changes of the cerebral hemispheres. Normal basal ganglia and thalami. Normal brainstem. Normal cerebellum. There is no intracranial hemorrhage. There are no findings of an acute ischemic infarction. Normal visualized paranasal sinuses. CT/Brain/Head without Contrast IMPRESSION: Age-related changes of the brain. Electronically Signed: Wilber Del Valle DO at 15:02 EDT Tel [phone], Service support ,
--- NOTE | 2020-01-10 11:17 | RAD_ITS ---
STUDY: X-RAY - RIGHT RADIUS AND ULNA REASON FOR EXAM: Female, 84 years old. FELL TECHNIQUE: 2 view(s) of the forearm. COMPARISON: None. FINDINGS: There is distal forearm soft tissue swelling. Comminuted fracture involving the distal end of the radius and ulna with dorsal angulation. RAD/Forearm 2 Views IMPRESSION: Comminuted fractures at the distal end of the radius and ulna. Electronically Signed: Wilber Del Valle DO at 15:06 EDT Tel [phone], Service support ,
[2020-01-10 11:21] LABS: Bedside Glucose 88 mg/dL (70-110)
--- NOTE | 2020-01-10 11:37 | RAD_ITS ---
STUDY: X-RAY - PELVIS AND BILATERAL HIPS REASON FOR EXAM: Female, 84 years old. POST OP TECHNIQUE: AP view of the pelvis.? 2 views of the right hip, and 2 views of the left hip were obtained. COMPARISON: January 07, 2020. FINDINGS: There is a non-specific bowel gas pattern. Normal visualized soft tissue structures. Normal bilateral iliac wings, sacroiliac joints and visualized sacrum. Normal bilateral superior and inferior pubic rami. Normal pubic symphysis. Normal bilateral ischial tuberosities. Status post ORIF of the right femoral neck. Normal right acetabulum. Normal right hip joint. Status post left total hip replacement. The acetabular component may have slightly rotated more horizontally since the previous study. Lateral skin wojciech are noted. Normal left acetabulum. Normal left hip joint. RAD/Hips B/L min 2 views w/ Pelvis IMPRESSION: Status post left total hip replacement. The acetabular component may have slightly rotated more horizontally since the previous study. Clinical correlation is needed. Electronically Signed: Wilber Del Valle DO at 15:12 EDT Tel [phone], Service support ,
[2020-01-10] MEDS: traMADol 50 MG Tablet PO (13:39)
--- NOTE | 2020-01-10 15:45 | DS.PCM_ITS ---
Discharge Date and Diagnosis - Problem List Patient Problems: Active and Suspected Problems (Last Reviewed 05/21/18 @ 13:47 by Kirti Richardson) Fall at home (Acute) Fracture of femoral neck, left, closed (Acute) Date of Admission: 01/06/20 Date of Discharge: 01/10/20 - Primary Discharge Diagnosis Active and Suspected Problems (Last Reviewed 05/21/18 @ 13:47 by Kirti Richardson) Acute mechanical fall Fracture of femoral neck, left, closed (Acute), status post left hip hemiarthroplasty for acute left subcapital femoral neck fracture secondary to mechanical fall Orthostatic hypotension Acute hypoxic respiratory failure Acute diastolic CHF, EF 30% Hypercoagulable state Acute kidney injury due to dehydration Acute right comminuted distal ulna and radial fracture - Secondary Discharge Diagnosis Chronic Problems (Last Reviewed 05/21/18 @ 13:47 by Kirti Richardson) Chronic atrial fibrillation (Chronic) Hypertension (Chronic) Other secondary pulmonary hypertension (Chronic) Nonrheumatic tricuspid (valve) insufficiency (Chronic) Premature atrial contractions (Chronic) Noncardiac pulmonary edema (Chronic) COPD (chronic obstructive pulmonary disease) (Chronic) Hypothyroidism (Chronic) Hospital Course and Treatment Imaging Results: 01/10/20 11:16 Brain/Head without Contrast [CT] Routine 01/10/20 11:17 Xray Forearm [Forearm 2 Views] [RAD] Routine 01/10/20 11:37 Hips B/L min 2 views w/ Pelvis [RAD] Routine Clinical Impression(s) from Imaging Studies Chest X-Ray 01/06/20 11:57 IMPRESSION: No acute cardiopulmonary findings Electronically Signed: Leo Alcocer DO at 12:44 EDT Tel , Service support , Hip/Pelvis X-Ray 01/06/20 11:57 IMPRESSION: Acute minimally displaced left subcapital femoral neck fracture Degenerative/postsurgical changes, as above Electronically Signed: Leo Alcocer DO at 12:54 EDT Tel , Service support , Chest CTA 01/06/20 21:47 IMPRESSION: 1. The lungs are hyperinflated with cystic emphysematous changes. 2. Diffuse groundglass edema is present throughout both lungs. 3. Small bilateral pleural effusions are also present with minimal dependent atelectasis. 4. Some interstitial thickening and scarring is present primarily in the lateral lung bases. Some chronic appearing pleural parenchymal scarring is present in the bilateral posterior aspects of both lungs. 5. No focal consolidation or air bronchograms. 6. A few pleural plaques are also present bilaterally. 7. No demonstrated pulmonary embolism or arterial dissection. Electronically Signed: Tyrone Kirby MD at 23:43 EDT , Service support , Hip X-Ray 01/07/20 12:41 IMPRESSION: New left hip hardware. Electronically Signed: Tyrone Kirby MD at 16:00 EDT , Service support , Chest X-Ray 01/09/20 09:34 IMPRESSION: Mild basilar atelectasis. Mild cardiomegaly. Electronically Signed: Wilber Del Valle DO at 14:21 EDT Tel [phone], Service support , Brain CT 01/10/20 11:16 IMPRESSION: Age-related changes of the brain. Electronically Signed: Wilber Del Valle DO at 15:02 EDT Tel [phone], Service support , Forearm X-Ray 01/10/20 11:17 IMPRESSION: Comminuted fractures at the distal end of the radius and ulna. Electronically Signed: Wilber Del Valle DO at 15:06 EDT Tel [phone], Service support , Hip/Pelvis X-Ray 01/10/20 11:37 IMPRESSION: Status post left total hip replacement. The acetabular component may have slightly rotated more horizontally since the previous study. Clinical correlation is needed. Electronically Signed: Wilber Del Valle DO at 15:12 EDT Tel [phone], Service support , Orthopedic surgery Operations: - - s/p left hip hemiarthroplasty Summary of Care Provided: The patient is a 84 year old F with past medical history of cognitive impairment, hypertension, atrial fibrillation on Coumadin who comes in after a fall. She tripped on her bathroom and landed on her left side. X-rays of the pelvis showed an acute minimally displaced left sub capital femoral neck fracture. Patient had splinting of her legs done in the ED and sent to the [facility] floor. She received 25 g of fentanyl. At the time of the scene, patient was hypoxic, requiring the use of Ventimask. ABGs showed hypoxic respiratory failure. Further work-up with 2D echo showed EF of 60%, pulmonary artery systolic pressure of 60. Orthopedic surgery and pulmonology were consulted. He received IV Lasix with improvement in oxygenation. Patient was on 4 L of oxygen preoperatively. Patient underwent Left hip hemiarthroplasty on 01/07/20. Postoperatively she continued to be stable and was on 4 L of oxygen. Patient was continued on Lasix but unfortunately resulted in increase in her creatinine. Lasix was stopped. On 01/08/20, patient had a presyncopal episode whilst working with PT and OT. She had received oxycodone prior. She was started on IV fluids. Oxycodone was discontinued. She was kept on scheduled Tylenol. She continued to be orthostatic and received more IV fluids. On 01/10/20, patient was okay to be discharged but got out of bed without help. She fell on her right side and sustained a right distal comminuted fracture of the ulna and radius. Discussed with orthopedic surgery. Her right wrist was splinted. Plan is for surgery on Saturday. Dr. Church was updated as well. Patient Problems: Active and Suspected Problems (Last Reviewed 05/21/18 @ 13:47 by Kirti Richardson) Fall at home (Acute) Fracture of femoral neck, left, closed (Acute) Subjective: On the day of discharge, patient had a fall and sustained right comminuted fracture of the distal ulna and radius. She was seen earlier on denied any new complaints. Her orthostatic vitals were negative. Objective: Physical exam: General: Alert, Oriented x3, Cooperative, No apparent distress HEENT: Atraumatic, PERRLA, EOMI, Normocephalic Oral: Moist Mucosa Neck: Supple Lungs: Clear to auscultation, Normal air movement Cardiovascular: Regular rate, Regular Rhythm, Normal S1, Normal S2, No murmurs Abdomen: Bowel Sounds Present, Soft, Non Tender, Non-Distended, No Hepato- splenomegaly Extremities: tenderness over her left hip, dressing is dry. Tenderness over her right wrist. Skin: No rashes Musculoskeletal: No Tenderness to Palpation of Joints or Extremities Lymphatic: No Cervical, Supraclavicular, or Inguinal Adenopathy Neurological: Cranial nerves II-XII grossly intact, Neuro grossly intact Psych/Mental Status: Normal Affect, Appropriate - Physical Exam Vitals/I&O's: Vital Signs Temp Pulse Resp BP Pulse Ox 97.1 F L 67 16 135/65 H 93 01/10/20 11:13 01/10/20 11:13 01/10/20 11:13 01/10/20 11:13 01/10/20 11:13 Oxygen Flow Rate (L/min) 3 Oxygen Delivery Method Nasal Cannula Weight: 73.3 kg Body Mass Index (BMI) 25.0 Orthostatic Vital Signs Start: 01/09/20 08:01 Freq: q24h Status: Active Protocol: Activity Type Activity Date Activity User E-Sign Co-Sign Detail Recorded Client Recorded Date Recorded By Document 01/10/20 05:08 BENJAMIN [id number] 01/10/20 05:19 BENJAMIN 01/10/20 05:08 Orthostatic Vitals Standing -Blood Pressure (90/60-120/80) 109/59 L -Extremity Use Right Arm -Pulse Rate (60-100) 66 Sitting -Blood Pressure (90/60-120/80) 125/50 H -Extremity Use Right Arm -Pulse Rate (60-100) 66 Lying -Blood Pressure (90/60-120/80) 129/58 H -Extremity Use Right Arm -Pulse Rate (60-100) 64 Intake and Output for Last 24 Hours 01/08/20 01/09/20 01/10/20 23:59 23:59 23:59 Intake Total 785 / 785 2560 / 2560 1188.75 / 1188.75 Output Total 500 / 500 580 / 580 Balance 285 / 285 1979 1979 1188.75 / 1188.75 Laboratory Results 01/09/20 16:46: POC Glucose 107 01/10/20 07:00: PT 17.8 H, INR 1.5 01/10/20 11:12: POC Glucose 88 Current Medications Acetaminophen (Tylenol) 1,000 mg PO Q8 [facility] Last Admin: 01/10/20 13:39 Dose: 1,000 mg Documented by: Albuterol Sulfate (Ventolin Aerosols) 2.5 mg INHALATION Q4HWA.RT [facility] Last Admin: 01/10/20 15:39 Dose: 2.5 mg Documented by: Amiodarone HCl (Cordarone) 200 mg PO DAILY [facility] Last Admin: 01/10/20 08:39 Dose: 200 mg Documented by: Cholecalciferol (Vitamin D (25mcg)) 3,000 unit PO DAILY [facility] Last Admin: 01/10/20 08:40 Dose: 3,000 unit Documented by: Dextrose (D50w Syringe) 0 gm IV X1 PRN; Protocol PRN Reason: Hypoglycemia Glucagon () 1 mg IM .X1 PRN PRN Reason: Hypoglycemia Sodium Chloride () 250 mls @ 15 mls/hr IV .[id number] PRN PRN Reason: Saline Flush Sodium Chloride () 250 mls @ 15 mls/hr IV .[id number] PRN PRN Reason: Additional IVPB Infusion Levothyroxine Sodium (Synthroid) 25 mcg PO DAILY@0600 [facility] Last Admin: 01/10/20 05:32 Dose: 25 mcg Documented by: Metoprolol Tartrate (Lopressor (Beta Denise)) 25 mg PO BID [facility] Last Admin: 01/10/20 08:39 Dose: 25 mg Documented by: Ondansetron HCl (Zofran) 4 mg IV Q8H PRN PRN PRN Reason: NAUSEA/VOMITING Senna/Docusate Sodium (Senokot-S, Raquel-Colace) 2 tablet PO BID [facility] Last Admin: 01/10/20 08:40 Dose: Not Given Documented by: Sodium Chloride () 10 - 40 ml IV UD PRN PRN Reason: SALINE FLUSH Last Admin: 01/09/20 10:02 Dose: 10 ml Documented by: Tramadol HCl (Ultram) 50 mg PO Q6H PRN PRN PRN Reason: Pain Score 6-10/10 Last Admin: 01/10/20 13:39 Dose: 50 mg Documented by: Warfarin Sodium (Coumadin (Pbkc)) 2.5 mg PO DAILY@1700 [facility] Last Admin: 01/09/20 16:49 Dose: 2.5 mg Documented by: Discharge Diet: Low fat/ Low Cholesterol, 2000 mg Sodium Diet Discharge Activity: Return to Normal Activity Home Medications: Medications to take at Discharge Albuterol Aerosols [Ventolin Aerosols] 2.5 mg INHALATION Q4HWA.RT 10/11/16 Amiodarone HCl [Pacerone] 200 mg PO DAILY 01/06/20 Cholecalciferol (VIT D3) [Vitamin D3] 3,000 unit PO QHS 01/06/20 Levothyroxine Sodium [Synthroid] 25 mcg PO QHS 01/06/20 Metoprolol Tartrate [Lopressor (beta denise)] 25 mg PO BID 01/06/20 Warfarin Sodium [Coumadin] 2.5 mg PO DAILY 01/06/20 Acetaminophen [Tylenol] 1,000 mg PO Q8 tab 01/09/20 traMADol [Ultram] 50 mg PO Q6H PRN PRN tab 01/10/20 Primary Care Physician: Patel Garcia MD [Primary Care Provider] - Please follow up with your Primary Care Physician in: within 1-2 weeks Please Follow Up With: Samuel Adams MD When: within 2 weeks Disposition: [facility] facility Minutes spent on discharge:: 40 Patient Condition:: Stable Medical Necessity - Tobacco Use Smoking Status: Never smoker Tobacco Use: Non-smoker Meaningful Use Info Meaningful Use Diagnoses (Choose all that apply): None applicable Inpatient E&M: 99589 Disch Hosp
--- NOTE | 2020-01-10 15:45 | PCM.PN.BLA ---
Progress Note Patient was apparently getting out of bed and fell sustaining deformity in her right wrist and some bleeding in the right temporal region. She is alert and oriented x2 (her baseline). She has pain in the right wrist. Vitals are stable. Orthostatic vitals this morning were negative CT scan of the brain showed age-related changes. X-ray of the right forearm showed comminuted fractures of the distal end of the radius and ulna X-ray of the pelvis and hip shows slight rotation of the acetabular component to the left hip. Discussed with Dr. Miur, who is covering-recommended getting a wrist splint, okay for discharge to TCU, would follow-up for surgery on Saturday. Called the patient's daughter, Marimar Morel to update. Patient will be discharged to TCU.
--- NOTE | 2020-01-10 16:10 | NURSING ---
Report recalled to Alexandrea in TCU
== END 2020-01-10 16:45 | disposition skilled nursing facility (03) | DRG 469 ==
LOC: ED 12:27 → MS3 13:32 → PCU 01-07 12:19
PROVIDERS: Hospitalist; Orthopaedic Surgery; Admitting Provider Internal Medicine; Emergency Provider Emergency Medicine; PCP Family Medicine; Visit Provider Internal Medicine
PROC: 0SRS0JZ Replacement of Left Hip Joint, Femoral Surface with Synthetic Substitute, Open Approach (ICD-10-PCS; CPT 27125; principal; 2020-01-07 08:40)
DX: S72.012A Unspecified intracapsular fracture of left femur, initial encounter for closed fracture (principal); J96.01 Acute respiratory failure with hypoxia; S52.501A Unspecified fracture of the lower end of right radius, initial encounter for closed fracture; S52.601A Unspecified fracture of lower end of right ulna, initial encounter for closed fracture; I50.31 Acute diastolic (congestive) heart failure; I48.20 Chronic atrial fibrillation, unspecified; R71.0 Precipitous drop in hematocrit; W01.0XXA Fall on same level from slipping, tripping and stumbling without subsequent striking against object, initial encounter; Y93.01 Activity, walking, marching and hiking; Y92.000 Kitchen of unspecified non-institutional (private) residence as the place of occurrence of the external cause; Y99.8 Other external cause status; J44.9 Chronic obstructive pulmonary disease, unspecified; E03.9 Hypothyroidism, unspecified; I27.29 Other secondary pulmonary hypertension; Z79.51 Long term (current) use of inhaled steroids; Z79.01 Long term (current) use of anticoagulants; Z79.899 Other long term (current) drug therapy; R41.89 Other symptoms and signs involving cognitive functions and awareness; Z66 Do not resuscitate; M81.0 Age-related osteoporosis without current pathological fracture; I35.0 Nonrheumatic aortic (valve) stenosis; I11.0 Hypertensive heart disease with heart failure; T50.1X5A Adverse effect of loop [high-ceiling] diuretics, initial encounter; I95.1 Orthostatic hypotension; W06.XXXA Fall from bed, initial encounter; Z91.81 History of falling; Y93.89 Activity, other specified; Y92.230 Patient room in hospital as the place of occurrence of the external cause; E86.0 Dehydration
CPT/HCPCS: 36415; 36416; 36600; 51702; 70450; 71045; 71275; 73090; 73502; 73521; 80053; 81001; 82803; 82962; 84443; 85025; 85379; 85610; 85730; 86850; 86900; 86901; 93005; 93306; 94640; 97162; 97166; 97530; 97535; 99251; 99285; C1776; J7030; J7040; J7050; J7120; P9017; Q9957; Q9967; A4216; G0463; J1940; J2405

== ENCOUNTER 2020-01-10 17:06 | Inpatient (IN) | payer MEDICARE, SELFPAY ==
[2020-01-07 09:35] VITALS: BMI 25.0
[2020-01-10 17:15] VITALS: BP 134/80; PULSE 71; RESP 16; RESP 18; TEMP 37.1; O2SAT 95; BMI 25.3
--- NOTE | 2020-01-10 17:18 | HP.PCM_ITS ---
Problem List (1) Debility Status: Acute (2) Fall Status: Acute (3) Closed left hip fracture Status: Acute (4) Right wrist fracture Status: Acute (5) Hypoxia Status: Acute (6) Pulmonary edema Status: Acute (7) Chronic diastolic (congestive) heart failure Status: Chronic (8) Atrial fibrillation Status: Chronic (9) Osteoporosis Status: Chronic (10) Vitamin D deficiency Status: Chronic (11) Hypertension Status: Chronic Qualifiers: (12) COPD (chronic obstructive pulmonary disease) Status: Chronic (13) Hypothyroidism Status: Chronic Qualifiers: History of Present Illness Date of Admission: 01/10/20 Chief Complaint: Here for rehabilitation, strengthening, prior to discharge home alone. The patient is a 84 year old Female with below past medical history presented to [facility] Emergency Department 01/06/2020 with fall. 01/06/2020 Chest X-ray negative. 01/06/2020 X-ray pelvis, left hip showed left hip fracture. 01/06/2020 CTA chest negative pulmonary embolism, showed hyperinflation, emphysema, diffuse ground glass edema, small bilateral pleural effusions, interstitial thickening, scarring bilaterally. Feet caught in coat, fell. Had left thigh, left hip pain. Vacuum splint, oxygen, Fentanyl, Zofran given by squad. Pain medications given. 01/06/2020 Admit to Hospital. Surgical risk average. Non rebreather for hypoxia. 01/07/2020 Lasix 40MG IV x 1 for interstitial edema. 01/07/2020 Dr. Adams recommended Lasix for pulmonary edema. Order Echo. Consider FFP. Consider ICU monitoring postoperatively. 01/07/2020 Echo EF 60%. Pulmonary artery systolic pressure 60mm HG. Moderate pulmonary hypertension. Mild aortic stenosis. 01/07/2020 Dr. Baker performed left hip hemiarthroplasty. 01/08/2020 Oxygen 3 Liters per nasal cannula. Pulmonary toilet, wean oxygen. Presyncope in AM, hold narcotics. Consider treatment of osteoporosis. 01/09/2020 Orthostasis treated with IV fluids. Monitor for acute on chronic diastolic congestive heart failure. 01/10/2020 Fell, fractured right wrist. 01/10/2020 Admit to TCU with debility, here for rehabilitation, strengthening, prior to discharge home alone. Past Medical History Past Medical History (Chronic Problems): Chronic Problems (Last Reviewed 05/21/18 @ 13:47 by Kirti Richardson) Chronic diastolic (congestive) heart failure (Chronic) Atrial fibrillation (Chronic) Osteoporosis (Chronic) Vitamin D deficiency (Chronic) Chronic atrial fibrillation (Chronic) Hypertension (Chronic) Other secondary pulmonary hypertension (Chronic) Nonrheumatic tricuspid (valve) insufficiency (Chronic) Premature atrial contractions (Chronic) Noncardiac pulmonary edema (Chronic) COPD (chronic obstructive pulmonary disease) (Chronic) Hypothyroidism (Chronic) Medical History: Medical History (Last Reviewed 05/21/18 @ 13:47 by Kirti Richardson) Chronic atrial fibrillation (Chronic) I48.2 Hypertension (Chronic) I10 Other secondary pulmonary hypertension (Chronic) I27.29 Nonrheumatic tricuspid (valve) insufficiency (Chronic) I36.1 Premature atrial contractions (Chronic) I49.1 Noncardiac pulmonary edema (Chronic) J81.1 COPD (chronic obstructive pulmonary disease) (Chronic) J44.9 Hypothyroidism (Chronic) E03.9 Osteoporosis M81.0 Asthma J45.909 Community acquired pneumonia (Resolved) J18.9 Hypoxia (Resolved) R09.02 Allergies budesonide [From Symbicort] Allergy (Verified 01/06/20 12:02) Unknown diltiazem [From Cardizem] Allergy (Verified 01/06/20 12:02) Unknown formoterol [From Symbicort] Allergy (Verified 01/06/20 12:02) Unknown Home Medications: Ambulatory Orders Medication Instructions Recorded Albuterol Aerosols [Ventolin 2.5 mg INHALATION Q4HWA.RT 10/11/16 Aerosols] Amiodarone HCl [Pacerone] 200 mg PO DAILY 01/06/20 Cholecalciferol (VIT D3) [Vitamin 3,000 unit PO QHS 01/06/20 D3] Levothyroxine Sodium [Synthroid] 25 mcg PO QHS 01/06/20 Metoprolol Tartrate [Lopressor 25 mg PO BID 01/06/20 (beta yudi)] Warfarin Sodium [Coumadin] 2.5 mg PO DAILY 01/06/20 Acetaminophen [Tylenol] 1,000 mg PO Q8 01/10/20 Surgical History: Surgical History (Last Reviewed 05/21/18 @ 13:47 by Kirti Richardson) History of cholecystectomy Z90.49 History of tonsillectomy Z90.89 Surgical History: cholecystectomy, total hip arthroplasty - right, tonsillectomy, - - Left hip hemiarthroplasty. Psychiatric History: No pertinent psych hx FOOD AND NUTRITION SERVICES ASSISTANT History: No pertinent FOOD AND NUTRITION SERVICES ASSISTANT history Lives: Alone Smoking Status: Never smoker Tobacco Use: Non-smoker Alcohol: None Drugs: None - *Family History Paternal Family History: Family History (Last Reviewed 05/21/18 @ 13:47 by Kirti Richardson) Sister Hypertension History Items: Heart Disease Maternal Family History: Family History (Last Reviewed 05/21/18 @ 13:47 by Kirti Richardson) Sister Hypertension History Items: No pertinent history Review of Systems Constitutional: Denies: Chills, Fever, Weight Change HEENT: Denies: Head Aches, Sinus Congestion, Sinus Drainage Cardiovascular: Denies: Chest Pain, Palpitations Respiratory: Denies: Cough, Shortness of breath at rest, Sputum production Gastrointestinal: Denies: Abdominal Pain, Nausea, Vomiting Genitourinary: Denies: Dysuria Musculoskeletal: Denies: Joint Pain, Joint Tenderness Skin: Denies: Rash, Wounds Neurological: Denies: Numbness, Tingling, Focal weakness Psychiatric: Denies: Anxiety, Depression, Homicidal Ideations, Suicidal Ideations Hematologic/ Lymphatic: Denies: Easy Bruising, Easy Bleeding VTE Information - Inpt Only VTE Present on Admission: No VTE Mechan Device Prophylaxis: Knee High CHAYO Hose VTE Pharm Prophylaxis ordered?: No Reason prophylaxis not ordered:: Treatment Not Indicated Patient Problems: Active and Suspected Problems (Last Reviewed 05/21/18 @ 13:47 by Kirti Richardson) Debility (Acute) Fall (Acute) Closed left hip fracture (Acute) Right wrist fracture (Acute) Hypoxia (Acute) Pulmonary edema (Acute) - Physical Exam Vitals/I&O's: Body Mass Index (BMI) 25.0 General: Alert, Oriented x3, Cooperative HEENT: Atraumatic, PERRLA, EOMI, Normocephalic Neck: Supple, No JVD, Negative Carotid Bruits Lungs: Clear to auscultation, Normal air movement Cardiovascular: Regular rate, No murmurs Abdomen: Bowel Sounds Present, Soft, Non Tender Extremities: No edema, Capillary Refill Less than 3 Seconds, - - Right upper ex tremity sling. Skin: No rashes, No breakdown Musculoskeletal: No Tenderness to Palpation of Joints or Extremities Neurological: Cranial nerves II-XII grossly intact Psych/Mental Status: Normal Affect, Appropriate Assessment/Plan All Active Problems (Last Reviewed 05/21/18 @ 13:47 by Kirti Richardson) Fall at home (Acute) Fracture of femoral neck, left, closed (Acute) Debility (Acute) Fall (Acute) Closed left hip fracture (Acute) Right wrist fracture (Acute) Hypoxia (Acute) Pulmonary edema (Acute) manager terminal (current) use of anticoagulants (Acute) Community acquired pneumonia (Resolved) Hypoxia (Resolved) 84 year old female with below past medical history hospitalized for left hip fracture, underwent left hip hemiarthroplasty 01/07/2020 Dr. Baker, complicated by right wrist fracture, acute on chronic diastolic heart failure, orthostatic hypotension, admitted to TCU with debility, here for rehabilitation, strengthening, prior to discharge home alone. * Debility - PT/OT. * Pain - Tylenol 1000MG Q8H, Oxycodone 2.5MG Q4H PRN pain (4-10). * Bowel - Miralax 17GM daily, Senna/colace 1 tablet BID, Dulcolax 10MG daily PRN. * Adult immunization - Administer Prevnar 13, Pneumovax 23, Fluzone as appropriate. * DVT prophylaxis - Not necessary, already on warfarin. * COPD - Ventolin 2.5MG [id number]. * Atrial Fibrillation - Metoprolol 25MG BID, Amiodarone 200MG daily, Warfarin 2.5MG daily, follow INR> * Vitamin D deficiency - D3 3000IU QHS. * Right wrist fracture - Dr. Muir surgery 01/13/2020. * Chronic diastolic heart failure - Monitor, may need Lasix.
--- NOTE | 2020-01-10 18:07 | NURSING ---
Per nurse Lynn on PCU, Dr. Muir plans on surgery on pt's right wrist on 01/13/2020. Dr. Muir is to be in tomorrow.
[2020-01-10 18:18] VITALS: BP 134/80; PULSE 71
[2020-01-10] MEDS: Metoprolol Tartrate 25 MG Tablet PO (18:18)
[2020-01-10] MEDS: Albuterol 2.5 MG/3 ML VIAL.NEB. INHALATION (19:05)
[2020-01-10 19:07] VITALS: PULSE 70; RESP 18; O2SAT 92
--- NOTE | 2020-01-10 19:09 | NURSING ---
Family updated on transfer to TCU and code status verified with daughter
--- NOTE | 2020-01-10 19:25 | NURSING ---
Per Dr. Church hold Coumadin until after surgery
--- NOTE | 2020-01-10 21:00 | NURSING ---
Addendum entered by aLvonne Headley 01/11/20 00:08: 21:54 hrs. Daughter dropped cassette play and tapes off to ER staff. ER staff brought to floor. Addendum entered by Lavonne Headley 01/11/20 00:05: 21:20 hrs, patient continues to yell out and states shes calling the maintenance of way supervisor if we don't let her out of here. Patient reassured staff was here to help her. Reminded patient to use her call light if assistance needed. Patient verbalized understanding. Original Note: Patient yelling out help! Walked into patient's room, patient on side of bed, attempting to stand up. Patient yelling out, Get me out of here or I'm calling the maintenance of way supervisor. I have the right to leave. Patient alert and oriented x3. Explained to patient I did not have authority to let patient leave. She had fallen earlier and had another injury. Advised patient we were here to help her. Educated patient on the use of the call light. Also educated on use of TV remote. Per patients request, called her daughter Marimar. Explained to Marimar the situation and that her mother wanted to talk to her. Daughter and patient talked. Patient told daughter to come get her, I to go home. I promise I will come back to have my surgery. Daughter told this nurse she was going to bring a cassette player and some tapes to help her calm down and relax. Patient okay with daughters decision. Patient's needs met at this time.
[2020-01-10] MEDS: Levothyroxine 25 MCG TABLET PO (21:12)
[2020-01-10] MEDS: Acetaminophen 500 MG Tablet 1000 MG PO (21:12)
[2020-01-10] MEDS: LORazepam 0.5 MG Tablet PO (21:28)
[2020-01-11] VITALS (8 sets, daily range): BP systolic 131–144; BP diastolic 71–74; PULSE 58–74; RESP 16–24; TEMP 37.2; O2SAT 92–97
[2020-01-11] MEDS: Metoprolol Tartrate 25 MG Tablet PO ×2 (05:40→17:51)
[2020-01-11] MEDS: Polyethylene Glycol 3350 17 GM PACKET PO (05:40)
[2020-01-11] MEDS: Senna/Docusate Sodium 1 Tablet PO ×2 (05:40→17:51)
[2020-01-11] MEDS: Amiodarone 200 MG Tablet PO (05:40)
[2020-01-11] MEDS: Acetaminophen 500 MG Tablet 1000 MG PO ×3 (05:46→20:46)
[2020-01-11 06:36] LABS: Absolute Lymphocyte Count 0.97 X10^3/uL (0.83-4.51); Absolute Neutrophil Count 5.2 X10^3/uL (2.0-7.7); Basophil# 0.03 X10^3/uL; Basophil% 0.4 % (0-1); Eosinophil# 0.41 X10^3/uL; Eosinophils% 5.7 % (0-5); Hematocrit 30.1 % (37-47); Hemoglobin 9.6 g/dL (12.0-15.0); Lymphocyte # 0.97 X10^3/ul (4.0); Lymphocyte % 13.4 % (19-41); Mean Corp Hgb Conc 31.9 g/dL (32-36); Mean Corpuscular Hgb 32.2 pg (27.0-32.0); Mean Platelet Vol. 11.5 fl (6.2-12.0); Monocyte% 8.3 % (0-10); NRBC Flagged by Analyzer 0 % (0-5); Neutrophil # 5.19 X10^3/uL (2.7-7.7); Neutrophil % 71.8 % (47-70); Platelet Count 170 K/mm3 (150-450); RBC Distribution Width CV 14.3 % (11.6-14.6); RBC Distribution Width SD 51.9 fl (35.1-43.9); Red Blood Count 2.98 M/mm3 (4.2-5.4); White Blood Count 7.2 K/mm3 (4.4-11.0)
[2020-01-11 06:48] LABS: Anion Gap 3 (5-15); BUN 18 mg/dL (7-18); BUN/Creat Ratio 27.8 RATIO (10-20); Calcium,Total 8.6 mg/dL (8.5-10.1); Chloride 108 mmol/L (98-107); Creatinine, Serum 0.65 mg/dL (0.55-1.02); EST Glomerular Filtration Rate 92 mL/min (>60); Est Glom Filt Rate - Afr Amer 112 mL/min (>60); Glucose 117 mg/dL (74-106); Potassium 3.6 mmol/L (3.5-5.1); Sodium Level 143 mmol/L (136-145)
[2020-01-11 06:51] LABS: International Normalized Ratio 1.7; Prothrombin Time (Protime)PT. 19.4 SECONDS (11.7-14.9)
[2020-01-11] MEDS: Albuterol 2.5 MG/3 ML VIAL.NEB. INHALATION ×4 (07:13→19:56)
[2020-01-11] MEDS: Tuberculin,Purif.prot.deriv. 50 TU/ML Vial 5 ML ID (13:10)
--- NOTE | 2020-01-11 15:53 | CASEMGMT ---
Social Work Discussed code status. Confirmed DNR-CCA. Completed MOLST form and placed in chart. Jaclyn West, CLINICAL DATA ASSOCIATE CADD MANAGER
--- NOTE | 2020-01-11 19:33 | NURSING ---
TALKED TO PT DAUGHTER TODAY AND GAVE UPDATES. DAUGHTER[TANIA] STATED SHE DIDNT KNOW HER MOM WAS HAVING ANOTHER SURGERY AND ON HER RIGHT WRIST. DAUGHTER CONCERNED ABOUT 2 SURGERIES BEING SO CLOSE TOGETHER AND WORRIED ABOUT MORE CONFUSION. DAUGHTER ALSO STATED SHE DID NOT WANT HER MOM ON CELEXA AND FEELS HER MOM IS NOT DEPRESSED AND SAYS HER MOM DOES GET UPSET AND YELLS SHE WANTS TO GO HOME. DAUGHTER DID ASK IF HER MOM COULD HAVE SOME THING TO HELP HER SLEEP AND FEELS IT MAY HELP HER AT NIGHT. REPORTED TO RN.
[2020-01-11] MEDS: Levothyroxine 25 MCG TABLET PO (20:46)
--- NOTE | 2020-01-12 00:27 | NURSING ---
while being transferred and sitting on the bedside pt reported to chicken raiser that she was having chest pain and seeing black. RN and I assessed and took vs, bp 135/60, hr 69, spo2 at 95% on 3L o2. pt stated she was feeling better while back in bed just very tired. will continue to monitor.
[2020-01-12 00:31] VITALS: BP 135/60; PULSE 68; O2SAT 95
[2020-01-12 06:40] VITALS: BP 142/73; PULSE 64
[2020-01-12] MEDS: Amiodarone 200 MG Tablet PO (06:40)
[2020-01-12] MEDS: Metoprolol Tartrate 25 MG Tablet PO ×2 (06:40→18:12)
[2020-01-12] MEDS: Senna/Docusate Sodium 1 Tablet PO ×2 (06:40→18:12)
[2020-01-12] MEDS: Acetaminophen 500 MG Tablet 1000 MG PO ×3 (06:41→21:31)
[2020-01-12] MEDS: Bisacodyl 5 MG Tablet 10 MG PO (06:42)
[2020-01-12] MEDS: Polyethylene Glycol 3350 17 GM PACKET PO (06:43)
[2020-01-12 07:15] VITALS: PULSE 68; RESP 18; O2SAT 92
[2020-01-12] MEDS: Albuterol 2.5 MG/3 ML VIAL.NEB. INHALATION (07:15)
--- NOTE | 2020-01-12 11:03 | NURSING ---
MEPILEX REMOVED FROM LEFT HIP PER DOCTOR ORDER. MODERATE AMOUNT OF DRAINAGE,NO S/S OF INFECTION, 14 CASE. WOUND AREA CLEANED AND NEW DRESSING[ABD] APPLIED. PT TOLERATED WELL. RN AWARE
[2020-01-12 11:10] VITALS: PULSE 65; RESP 18
[2020-01-12 14:06] VITALS: BP 128/56; PULSE 72; RESP 16; TEMP 36.6; O2SAT 98
--- NOTE | 2020-01-12 14:32 | CASEMGMT ---
Social Work Provided card of prayers and encouragement from community member to pt. Pt appreciative. Jaclyn West, DRY PRESS OPERATOR INDUSTRIAL AUTOMATION SPECIALIST
--- NOTE | 2020-01-12 15:14 | NURSING ---
patients daughter updated on pt surgery, meds and how patient is doing today.
[2020-01-12 18:12] VITALS: BP 128/56; PULSE 72
[2020-01-12] MEDS: Levothyroxine 25 MCG TABLET PO (21:30)
[2020-01-13] VITALS (7 sets, daily range): BP systolic 146; BP diastolic 59; PULSE 68–87; RESP 16–22; TEMP 36.8; O2SAT 92–97
--- NOTE | 2020-01-13 10:31 | CASEMGMT ---
Social Work IDT met with patient and daughter via conference call for care plan meeting. Discussed patient's progress in therapy. Pt is mod assist x2 for bed mobility, ambulating with HW at mod assist, mod/max assist for transfers, max for bathing, mod for UE dressing, max for LE dressing, max for toileting tasks, max x2 for EOB. Pt having some confusion with ST memory, but LT memory intact. ST working on cognitive strategies, and recommending children assist with medications and finances at [place] unless cognition clears. Pt on reg/thin diet, low salt, low fat, small portions, accepts med pass, poor intake. Will continue to monitor for silent aspiration. Pt reports poor intake prior as well. Pt will continue to receive 1:1 visit from activities, and enjoys working on [employer] puzzles. Pt receiving surgery on wrist on this date. Received COVID swab 01/11 - awaiting test results, and can come out of room isolation 01/22. Pt receives aerosols. Explained insurance coverage with [employer] 01/13. Pt lives at home alone but children live close. Discussed pt will need assistance at [place]. Will continue to follow. Jaclyn West, [employer] QUALITY ENGINEER
--- NOTE | 2020-01-13 11:36 | OT ---
Spoke to daughter on phone While in patients room doing OT treatment, daughter called patient. Patient was unable to answer daughters questions and handed the phone to OT. Daughter Marimar reporting that Dr. Muir's office had called her and she was unable to answer the call at that time. She has since tried calling both the hospital coin machine operator and also Isadora's office numerous times without anyone answering. Daughter requesting that [facility] be notified that she has been attempting to call back her office and if able to let Dr. Gerard know she is now able to answer the phone. This information was relayed to [facility].
[2020-01-13] MEDS: Albuterol 2.5 MG/3 ML VIAL.NEB. INHALATION ×3 (11:45→20:30)
--- NOTE | 2020-01-13 13:35 | MDS.RN ---
AC called to floor, states surgery cancelled d/t resident temp 101 temporal, INR 2.0, this information given to fire extinguisher charger
--- NOTE | 2020-01-13 13:40 | NURSING ---
Itzel RN received report from surgery that the surgery was cancelled d/t Temp 101 Temporal and INR 2.0
--- NOTE | 2020-01-13 14:21 | PCM.PN.RX ---
<Russ Pitts - Last Filed: 01/13/20 14:21> Progress Note - Pharmacy Subjective: [] TCU Admission Objective: Allergies budesonide [From Symbicort] Allergy (Verified 01/06/20 12:02) Unknown diltiazem [From Cardizem] Allergy (Verified 01/06/20 12:02) Unknown formoterol [From Symbicort] Allergy (Verified 01/06/20 12:02) Unknown Current Medications Generic Name Dose Route Start Last Admin Trade Name Freq PRN Reason Stop Dose Admin Acetaminophen 1,000 mg 01/10/20 22:00 01/13/20 04:57 Tylenol PO Not Given Q8 CLAUDIA Albuterol Sulfate 2.5 mg 01/10/20 17:30 01/13/20 11:45 Ventolin Aerosols INHALATION 2.5 mg Q4HWA.RT CLAUDIA Administration Amiodarone HCl 200 mg 01/11/20 06:00 01/13/20 04:56 Cordarone PO Not Given DAILY CLAUDIA Bisacodyl 10 mg 01/10/20 17:41 01/12/20 06:42 Dulcolax PO 10 mg DAILY PRN Administration Constipation Cholecalciferol 3,000 unit 01/10/20 22:00 01/12/20 21:31 Vitamin D (25mcg) PO 3,000 unit QHS CLAUDIA Administration Levothyroxine Sodium 25 mcg 01/10/20 22:00 01/12/20 21:30 Synthroid PO 25 mcg QHS CLAUDIA Administration Melatonin 3 mg 01/12/20 08:13 Melatonin PO QHS PRN INSOMNIA Metoprolol Tartrate 25 mg 01/10/20 18:00 01/13/20 04:56 Lopressor (Beta Denise) PO Not Given BID [facility] Nutritional Formula (Lactose Free) 120 ml 01/11/20 06:00 01/13/20 11:05 Ensure Enlive PO Not Given 4X/DAY [facility] Oxycodone HCl 2.5 mg 01/10/20 17:39 Oxyir PO Q4H PRN PRN Pain Score 4-10/10 Polyethylene Glycol 17 gm 01/11/20 06:00 01/13/20 04:56 Miralax PO Not Given DAILY [facility] Senna/Docusate Sodium 1 tablet 01/10/20 18:00 01/13/20 04:56 Senokot-S, Raquel-Colace PO Not Given BID [facility] Tuberculin PPD 5 tu 01/18/20 10:00 Tubersol, Aplisol, Ppd ID 01/18/20 10:01 X1 ONE Warfarin Sodium 2.5 mg 01/10/20 17:00 Coumadin (Pbkc) PO DAILY@1700 [facility] Problem List (Last Reviewed 05/21/18 @ 13:47 by Kirti Richardson) Debility (Acute) Fall (Acute) Closed left hip fracture (Acute) Right wrist fracture (Acute) Hypoxia (Acute) Pulmonary edema (Acute) Chronic diastolic (congestive) heart failure (Chronic) Atrial fibrillation (Chronic) Osteoporosis (Chronic) Vitamin D deficiency (Chronic) Vital Signs Temp Pulse Resp BP Pulse Ox 97.9 F 77 22 H 128/56 H 98 01/12/20 14:06 01/13/20 11:45 01/13/20 11:45 01/12/20 18:12 01/12/20 14:06 Oxygen Flow Rate (L/min) 2 Oxygen Delivery Method Nasal Cannula Weight: 73.198 kg Body Mass Index (BMI) 25.3 Sodium 143 mmol/L (136-145) 01/11/20 06:00 Potassium 3.6 mmol/L (3.5-5.1) 01/11/20 06:00 Chloride 108 mmol/L (98-107) H 01/11/20 06:00 Carbon Dioxide 32.0 mmol/L (21.0-32.0) 01/11/20 06:00 Anion Gap 3 (5-15) L 01/11/20 06:00 BUN 18 mg/dL (7-18) 01/11/20 06:00 Creatinine 0.65 mg/dL (0.55-1.02) 01/11/20 06:00 Est GFR (MDRD) Af Amer 112 mL/min (>60) 01/11/20 06:00 Est GFR (MDRD) Non-Af 92 mL/min (>60) 01/11/20 06:00 BUN/Creatinine Ratio 27.8 RATIO (10-20) H 01/11/20 06:00 Glucose 117 mg/dL (74-106) H 01/11/20 06:00 COPD - Ventolin 2.5MG [id number]. Atrial Fibrillation - Metoprolol 25MG BID, Amiodarone 200MG daily, Warfarin 2.5MG daily, follow INR> Vitamin D deficiency - D3 3000IU QHS. Right wrist fracture - Dr. Muir surgery 01/13/2020. Chronic diastolic heart failure - Monitor, may need Lasix. Addendum entered and electronically signed by Chava Church MD 01/11/20 17:10: Depression - Rx Citalopram 10MG daily. Assessment/Plan: 1) Pain: Acetaminophen 1000mg po q8h, Oxycodone 2.5mg po q4h prn for pain 4-10. Please continue to monitor prn usage and for signs/symptoms of increased/decreased pain. 2) Hypothyroidism: Levothyroxine 25mcg po qhs. Pt's TSH was 2.41 on 01/07/20. Please continue to monitor. 3) Vitamin D Deficiency: Vitamin D3 3000 units po qhs. Pt's last Vitamin D level was 46.5 on 06/2019. Please continue to monitor. 4) AFib: Amiodarone 200mg po daily, Metoprolol Tartrate 25mg po bid, Warfarin 2.5mg po daily. Pt's in was 2.0 on 01/13/20. Please continue to monitor. Pt's pulse rate is within normal limits. Please continue to monitor. Pt has had 1 irregular pulse rhythm. Pt's average bp is 135.3/68.3. Please continue to monitor. 5) COPD: Albuterol Nebules 2.5mg via nebulizer q4h while awake. Please continue to monitor pt's heart rate and rhythm due to albuterol and afib. Please continue to monitor pt's breathing. Psychotropic Medications: Melatonin 3mg po qhs prn for sleep. Please continue to monitor prn usage. Unnecessary Medications: none Bowel Regimen: Bisacodyl 10mg po daily prn for constipation, Miralax 17gm po daily, Senna/Docusate 1 tablet po bid. Please continue to monitor prn usage and for signs/symptoms of constipation/diarrhea. Date of Note:: 01/13/20 - Provider Comments Provider responsibility: Provider responsible to enter orders to implement recommendations <Chava Church Chi - Last Filed: 01/13/20 17:02> Progress Note - Pharmacy Subjective: [] Objective: Allergies budesonide [From Symbicort] Allergy (Verified 04/29/20 12:02) Unknown diltiazem [From Cardizem] Allergy (Verified 01/06/20 12:02) Unknown formoterol [From Symbicort] Allergy (Verified 01/06/20 12:02) Unknown Current Medications Generic Name Dose Route Start Last Admin Trade Name Freq PRN Reason Stop Dose Admin Acetaminophen 1,000 mg 01/10/20 22:00 01/13/20 15:11 Tylenol PO 1,000 mg Q8 CLAUDIA Administration Albuterol Sulfate 2.5 mg 01/10/20 17:30 01/13/20 15:50 Ventolin Aerosols INHALATION 2.5 mg Q4HWA.RT CLAUDIA Administration Amiodarone HCl 200 mg 01/11/20 06:00 01/13/20 04:56 Cordarone PO Not Given DAILY [facility] Bisacodyl 10 mg 01/10/20 17:41 01/12/20 06:42 Dulcolax PO 10 mg DAILY PRN Administration Constipation Cholecalciferol 3,000 unit 01/10/20 22:00 01/12/20 21:31 Vitamin D (25mcg) PO 3,000 unit QHS CLAUDIA Administration Levothyroxine Sodium 25 mcg 01/10/20 22:00 01/12/20 21:30 Synthroid PO 25 mcg QHS CLAUDIA Administration Melatonin 3 mg 01/12/20 08:13 Melatonin PO QHS PRN INSOMNIA Metoprolol Tartrate 25 mg 01/10/20 18:00 01/13/20 04:56 Lopressor (Beta Denise) PO Not Given BID [facility] Nutritional Formula (Lactose Free) 120 ml 01/11/20 06:00 01/13/20 11:05 Ensure Enlive PO Not Given 4X/DAY [facility] Oxycodone HCl 2.5 mg 01/10/20 17:39 Oxyir PO Q4H PRN PRN Pain Score 4-10/10 Polyethylene Glycol 17 gm 01/11/20 06:00 01/13/20 04:56 Miralax PO Not Given DAILY [facility] Senna/Docusate Sodium 1 tablet 01/10/20 18:00 01/13/20 04:56 Senokot-S, Raquel-Colace PO Not Given BID [facility] Tuberculin PPD 5 tu 01/18/20 10:00 Tubersol, Aplisol, Ppd ID 01/18/20 10:01 X1 ONE Warfarin Sodium 2.5 mg 01/10/20 17:00 Coumadin (Pbkc) PO DAILY@1700 [facility] Problem List (Last Reviewed 05/21/18 @ 13:47 by Kirti Richardson) Debility (Acute) Fall (Acute) Closed left hip fracture (Acute) Right wrist fracture (Acute) Hypoxia (Acute) Pulmonary edema (Acute) Chronic diastolic (congestive) heart failure (Chronic) Atrial fibrillation (Chronic) Osteoporosis (Chronic) Vitamin D deficiency (Chronic) Vital Signs Temp Pulse Resp BP Pulse Ox 98.2 F 84 21 H 146/59 H 92 01/13/20 14:47 01/13/20 15:50 01/13/20 15:50 01/13/20 14:47 01/13/20 14:47 Oxygen Flow Rate (L/min) 3 Oxygen Delivery Method Nasal Cannula Weight: 70 kg Body Mass Index (BMI) 25.3 Sodium 143 mmol/L (136-145) 01/11/20 06:00 Potassium 3.6 mmol/L (3.5-5.1) 01/11/20 06:00 Chloride 108 mmol/L (98-107) H 01/11/20 06:00 Carbon Dioxide 32.0 mmol/L (21.0-32.0) 01/11/20 06:00 Anion Gap 3 (5-15) L 01/11/20 06:00 BUN 18 mg/dL (7-18) 01/11/20 06:00 Creatinine 0.65 mg/dL (0.55-1.02) 01/11/20 06:00 Est GFR (MDRD) Af Amer 112 mL/min (>60) 01/11/20 06:00 Est GFR (MDRD) Non-Af 92 mL/min (>60) 01/11/20 06:00 BUN/Creatinine Ratio 27.8 RATIO (10-20) H 01/11/20 06:00 Glucose 117 mg/dL (74-106) H 01/11/20 06:00 Assessment/Plan: Psychotropic Medications: Unnecessary Medications: Bowel Regimen: - Provider Comments Provider responsibility: Provider responsible to enter orders to implement recommendations Provider Comments to Recommendations by Pharmacy: Agree
--- NOTE | 2020-01-13 14:28 | NURSING ---
Pt returned to floor d/t surgery being cancelled, VS WNL, axillary temp 98.2, oral temp 99.3, RN aware
[2020-01-13] MEDS: Acetaminophen 500 MG Tablet 1000 MG PO ×2 (15:11→21:13)
--- NOTE | 2020-01-13 15:26 | NURSING ---
Spoke with Dr. Muir's office, they stated they will speak with the doctor about rescheduling the surgery. Will notify patient's family
--- NOTE | 2020-01-13 15:30 | NURSING ---
Updated pt's family after speaking with Dr. Muir's office. Explained that the doctor's office will let us know when surgery is to be rescheduled.
[2020-01-13] MEDS: Metoprolol Tartrate 25 MG Tablet PO (17:56)
[2020-01-13] MEDS: Senna/Docusate Sodium 1 Tablet PO (17:56)
[2020-01-13] MEDS: Levothyroxine 25 MCG TABLET PO (21:13)
[2020-01-14] VITALS (7 sets, daily range): BP systolic 124; BP diastolic 53; PULSE 60–77; RESP 14–18; TEMP 37; O2SAT 95–98
[2020-01-14 06:00] LABS: Prothrombin Time (Protime)PT. 21.7 SECONDS (11.7-14.9)
[2020-01-14] MEDS: Albuterol 2.5 MG/3 ML VIAL.NEB. INHALATION ×4 (06:30→19:41)
[2020-01-14] MEDS: Metoprolol Tartrate 25 MG Tablet PO (08:54)
[2020-01-14] MEDS: Amiodarone 200 MG Tablet PO (08:55)
[2020-01-14] MEDS: Acetaminophen 500 MG Tablet 1000 MG PO ×3 (08:56→23:12)
--- NOTE | 2020-01-14 14:36 | NURSING ---
During assessment this nurse went to cleanse wound with betadine per order, this nurse asked pt if she had any shellfish allergies, pt stated she was allergic to shellfish, when asked what kind of reaction she had pt stated her throat swells shut, DSD was changed but betadine was not applied, RN aware
--- NOTE | 2020-01-14 14:49 | NURSING ---
pt pulled on and dislodged SL put in on 01/12 by surgery, SL removed and Iv catheter remained intact
[2020-01-14] MEDS: oxyCODONE 5 MG Tablet 2.5 MG PO (18:35)
[2020-01-14] MEDS: Levothyroxine 25 MCG TABLET PO (23:12)
[2020-01-15] VITALS (8 sets, daily range): BP systolic 113–138; BP diastolic 47–66; PULSE 56–69; RESP 16–18; TEMP 36.3; O2SAT 91–98
[2020-01-15] MEDS: Albuterol 2.5 MG/3 ML VIAL.NEB. INHALATION ×4 (06:40→18:37)
[2020-01-15] MEDS: Amiodarone 200 MG Tablet PO (06:42)
[2020-01-15] MEDS: Acetaminophen 500 MG Tablet 1000 MG PO ×3 (06:42→21:17)
[2020-01-15] MEDS: Metoprolol Tartrate 25 MG Tablet PO ×2 (06:42→17:11)
[2020-01-15] MEDS: Senna/Docusate Sodium 1 Tablet PO (06:42)
[2020-01-15] MEDS: Enoxaparin 40 MG/0.4 ML Syringe SC (10:40)
--- NOTE | 2020-01-15 12:04 | CASEMGMT ---
Social Work BIMS and PHQ-9 completed for MDS assessment. Jaclyn West, EMERGENCY REGISTRAR ACID TENDER
--- NOTE | 2020-01-15 13:52 | NURSING ---
Pt noted to have LT heel redness/pressure injury, applied mepilex and with float heels/heel boots as well.
--- NOTE | 2020-01-15 17:05 | NURSING ---
UPDATED DAUGHTER TANIA ON PATENT.
[2020-01-15] MEDS: Levothyroxine 25 MCG TABLET PO (21:45)
[2020-01-16] VITALS (7 sets, daily range): BP systolic 129–130; BP diastolic 52–66; PULSE 61–70; RESP 16–20; TEMP 37.2; O2SAT 96–97
[2020-01-16] MEDS: MELATONIN 3 MG TABLET PO (00:34)
[2020-01-16] MEDS: Acetaminophen 500 MG Tablet 1000 MG PO ×2 (06:57→20:32)
[2020-01-16] MEDS: Amiodarone 200 MG Tablet PO (06:58)
[2020-01-16] MEDS: Senna/Docusate Sodium 1 Tablet PO (06:58)
[2020-01-16] MEDS: Enoxaparin 40 MG/0.4 ML Syringe SC (07:00)
[2020-01-16] MEDS: Metoprolol Tartrate 25 MG Tablet PO ×2 (07:01→17:50)
[2020-01-16] MEDS: Albuterol 2.5 MG/3 ML VIAL.NEB. INHALATION ×2 (07:10→11:35)
--- NOTE | 2020-01-16 10:51 | NURSING ---
Pt in bed and dressing changed. Incision is well approximated, wojciech intact, and moderate amount of serous drainage noted. Incision cleansed with Betadine and DSD applied. Pt tolerated well.
--- NOTE | 2020-01-16 11:21 | NURSING ---
Pt spoke with family on in room phone.
[2020-01-16] MEDS: oxyCODONE 5 MG Tablet 2.5 MG PO (18:11)
[2020-01-16] MEDS: Levothyroxine 25 MCG TABLET PO (20:32)
[2020-01-17] VITALS (9 sets, daily range): BP systolic 103–116; BP diastolic 44–60; PULSE 54–85; RESP 16–18; TEMP 36.9; O2SAT 88–98
[2020-01-17] MEDS: Amiodarone 200 MG Tablet PO (05:07)
[2020-01-17] MEDS: Enoxaparin 40 MG/0.4 ML Syringe SC (05:07)
[2020-01-17] MEDS: Acetaminophen 500 MG Tablet 1000 MG PO ×3 (05:07→21:58)
[2020-01-17] MEDS: Senna/Docusate Sodium 1 Tablet PO (05:07)
[2020-01-17] MEDS: Metoprolol Tartrate 25 MG Tablet PO ×2 (05:11→17:25)
[2020-01-17] MEDS: Albuterol 2.5 MG/3 ML VIAL.NEB. INHALATION ×4 (06:46→19:20)
[2020-01-17] MEDS: oxyCODONE 5 MG Tablet 2.5 MG PO (14:03)
--- NOTE | 2020-01-17 15:40 | NURSING ---
Called family to give update, left a message for daughter to call back if she would like an update.
[2020-01-17] MEDS: Levothyroxine 25 MCG TABLET PO (20:05)
[2020-01-17] MEDS: MELATONIN 3 MG TABLET PO (21:59)
[2020-01-18] VITALS (7 sets, daily range): BP systolic 109–112; BP diastolic 53–70; PULSE 60–99; RESP 16–18; TEMP 36.2; O2SAT 96–97
[2020-01-18 05:35] LABS: Absolute Lymphocyte Count 1.32 X10^3/uL (0.83-4.51); Absolute Neutrophil Count 4.7 X10^3/uL (2.0-7.7); Basophil# 0.04 X10^3/uL; Basophil% 0.5 % (0-1); Eosinophil# 0.59 X10^3/uL; Eosinophils% 7.9 % (0-5); Hematocrit 30.1 % (37-47); Hemoglobin 9.6 g/dL (12.0-15.0); Lymphocyte # 1.32 X10^3/ul (4.0); Lymphocyte % 17.7 % (19-41); Mean Corp Hgb Conc 31.9 g/dL (32-36); Mean Corpuscular Hgb 32.3 pg (27.0-32.0); Mean Corpuscular Volume 101.3 fL (81-99); Monocyte# 0.69 X10^3/uL; Monocyte% 9.3 % (0-10); NRBC Flagged by Analyzer 0 % (0-5); Neutrophil # 4.69 X10^3/uL (2.7-7.7); Platelet Count 442 K/mm3 (150-450); RBC Distribution Width CV 15.6 % (11.6-14.6); RBC Distribution Width SD 56.2 fl (35.1-43.9); Red Blood Count 2.97 M/mm3 (4.2-5.4); White Blood Count 7.5 K/mm3 (4.4-11.0)
[2020-01-18 05:47] LABS: International Normalized Ratio 1.7; Prothrombin Time (Protime)PT. 19.4 SECONDS (11.7-14.9)
[2020-01-18 05:52] LABS: Anion Gap 4 (5-15); BUN 15 mg/dL (7-18); BUN/Creat Ratio 19.4 RATIO (10-20); Calcium,Total 8.7 mg/dL (8.5-10.1); Chloride 106 mmol/L (98-107); Creatinine, Serum 0.77 mg/dL (0.55-1.02); EST Glomerular Filtration Rate 76 mL/min (>60); Est Glom Filt Rate - Afr Amer 91 mL/min (>60); Glucose 106 mg/dL (74-106); Potassium 3.8 mmol/L (3.5-5.1); Sodium Level 141 mmol/L (136-145)
[2020-01-18] MEDS: Acetaminophen 500 MG Tablet 1000 MG PO ×3 (06:14→21:15)
[2020-01-18] MEDS: Enoxaparin 40 MG/0.4 ML Syringe SC (06:14)
[2020-01-18] MEDS: Metoprolol Tartrate 25 MG Tablet PO ×2 (06:15→16:54)
[2020-01-18] MEDS: Senna/Docusate Sodium 1 Tablet PO ×2 (06:15→16:55)
[2020-01-18] MEDS: Amiodarone 200 MG Tablet PO (06:15)
[2020-01-18] MEDS: Albuterol 2.5 MG/3 ML VIAL.NEB. INHALATION ×3 (06:40→18:51)
[2020-01-18] MEDS: Tuberculin,Purif.prot.deriv. 50 TU/ML Vial 5 ML ID (10:47)
[2020-01-18] MEDS: oxyCODONE 5 MG Tablet 2.5 MG PO (12:51)
[2020-01-18] MEDS: Mirtazapine 15 MG Tablet 7.5 MG PO (20:32)
[2020-01-18] MEDS: Levothyroxine 25 MCG TABLET PO (20:35)
[2020-01-19] VITALS (10 sets, daily range): BP systolic 107–122; BP diastolic 43–50; PULSE 58–94; RESP 16–18; TEMP 36.5–36.8; O2SAT 87–98
[2020-01-19] MEDS: Metoprolol Tartrate 25 MG Tablet PO ×2 (05:03→18:17)
[2020-01-19] MEDS: Acetaminophen 500 MG Tablet 1000 MG PO ×3 (05:04→21:06)
[2020-01-19] MEDS: Amiodarone 200 MG Tablet PO (05:04)
[2020-01-19] MEDS: Senna/Docusate Sodium 1 Tablet PO ×2 (05:04→18:13)
[2020-01-19] MEDS: Enoxaparin 40 MG/0.4 ML Syringe SC (05:06)
[2020-01-19] MEDS: Albuterol 2.5 MG/3 ML VIAL.NEB. INHALATION ×3 (06:48→15:27)
[2020-01-19] MEDS: oxyCODONE 5 MG Tablet 2.5 MG PO (09:40)
--- NOTE | 2020-01-19 14:01 | NURSING ---
daughter updated on pt and surgery tomorrow on right wrist. daughter happy!
[2020-01-19] MEDS: Levothyroxine 25 MCG TABLET PO (21:06)
[2020-01-19] MEDS: Mirtazapine 15 MG Tablet 7.5 MG PO (21:10)
[2020-01-20] VITALS (7 sets, daily range): BP systolic 128–129; BP diastolic 46–54; PULSE 56–76; RESP 15–16; TEMP 36.4–37.2; O2SAT 90–97
[2020-01-20] MEDS: Amiodarone 200 MG Tablet PO (05:14)
[2020-01-20] MEDS: Albuterol 2.5 MG/3 ML VIAL.NEB. INHALATION ×2 (06:30→09:40)
--- NOTE | 2020-01-20 09:33 | NURSING ---
PT's VS obtained before surgery VS WNL. Surgery called requesting pt have a breathing tx before surgery and would like her down to surgery at 10am, Respiratory called and updated about resident needing breathing tx before surgery. No new concerns observed or reported with pt today
--- NOTE | 2020-01-20 11:29 | MDS.RN ---
Information for the mds was obtained from review of the clinical record, interview of resident, staff, and direct observation of resident's care.
[2020-01-20] MEDS: Senna/Docusate Sodium 1 Tablet PO (17:31)
[2020-01-20] MEDS: Metoprolol Tartrate 25 MG Tablet PO (17:32)
[2020-01-20] MEDS: Acetaminophen 500 MG Tablet 1000 MG PO (21:03)
[2020-01-20] MEDS: Mirtazapine 15 MG Tablet 7.5 MG PO (21:03)
[2020-01-20] MEDS: Levothyroxine 25 MCG TABLET PO (21:04)
[2020-01-21] VITALS (9 sets, daily range): BP systolic 116–144; BP diastolic 49; PULSE 56–79; RESP 16–20; TEMP 36.6–37; O2SAT 94–97
[2020-01-21 06:11] LABS: International Normalized Ratio 1.3; Prothrombin Time (Protime)PT. 15.5 SECONDS (11.7-14.9)
[2020-01-21] MEDS: Albuterol 2.5 MG/3 ML VIAL.NEB. INHALATION ×4 (06:38→18:40)
[2020-01-21] MEDS: Acetaminophen 500 MG Tablet 1000 MG PO ×3 (07:08→20:53)
[2020-01-21] MEDS: Amiodarone 200 MG Tablet PO (07:09)
[2020-01-21] MEDS: Enoxaparin 40 MG/0.4 ML Syringe SC (07:09)
[2020-01-21] MEDS: Senna/Docusate Sodium 1 Tablet PO ×2 (07:09→18:17)
--- NOTE | 2020-01-21 07:20 | NURSING ---
Saline lock removed from left hand catheter intact. Right arm elevated on pillow with ice to right wrist area has swelling and ecchymosis to fingers. Capillary refill <3.
--- NOTE | 2020-01-21 10:43 | NURSING ---
wojciech were not removed today d/t a moderate amount of serous drainage, RN aware
[2020-01-21] MEDS: oxyCODONE 5 MG Tablet 2.5 MG PO (11:31)
[2020-01-21] MEDS: Levothyroxine 25 MCG TABLET PO (20:53)
[2020-01-21] MEDS: Mirtazapine 15 MG Tablet 7.5 MG PO (20:54)
[2020-01-22] VITALS (8 sets, daily range): BP systolic 119–126; BP diastolic 64–76; PULSE 53–74; RESP 16–24; TEMP 36.5–37.6; O2SAT 91–98
[2020-01-22] MEDS: Enoxaparin 40 MG/0.4 ML Syringe SC (04:43)
[2020-01-22] MEDS: Metoprolol Tartrate 25 MG Tablet PO ×2 (04:44→17:33)
[2020-01-22] MEDS: Amiodarone 200 MG Tablet PO (04:44)
[2020-01-22] MEDS: Acetaminophen 500 MG Tablet 1000 MG PO ×3 (04:44→20:50)
[2020-01-22] MEDS: Senna/Docusate Sodium 1 Tablet PO ×2 (04:46→17:32)
[2020-01-22] MEDS: Albuterol 2.5 MG/3 ML VIAL.NEB. INHALATION ×4 (07:19→19:00)
[2020-01-22] MEDS: Mirtazapine 15 MG Tablet 7.5 MG PO (20:52)
[2020-01-22] MEDS: Levothyroxine 25 MCG TABLET PO (20:53)
[2020-01-23] VITALS (10 sets, daily range): BP systolic 129–147; BP diastolic 56–57; PULSE 53–74; RESP 16–18; TEMP 36.1–36.8; O2SAT 89–97
[2020-01-23] MEDS: Acetaminophen 500 MG Tablet 1000 MG PO ×3 (07:09→20:36)
[2020-01-23] MEDS: Amiodarone 200 MG Tablet PO (07:10)
[2020-01-23] MEDS: Senna/Docusate Sodium 1 Tablet PO ×2 (07:10→17:42)
[2020-01-23] MEDS: Metoprolol Tartrate 25 MG Tablet PO ×2 (07:10→17:41)
[2020-01-23] MEDS: Enoxaparin 40 MG/0.4 ML Syringe SC (07:10)
[2020-01-23] MEDS: Albuterol 2.5 MG/3 ML VIAL.NEB. INHALATION ×4 (07:11→19:17)
--- NOTE | 2020-01-23 11:35 | NURSING ---
Addendum entered by Mary Oden 01/23/20 12:11: proximal end noted with some separation of incision site, steri strips applied. no active drng noted. Original Note: CASE REMOVED FROM LEFT HIP,STERI STRIPS APPLIED. RN AWARE
--- NOTE | 2020-01-23 16:14 | NURSING ---
CALL DAUGHTER JACIEL TO GIVE UP DATE ON MOM. DAUGHTER CONCERN THAT HER MOM MAY GET REALLY DEPRESSED CAUSE SHE CANT SEE FAMILY AND CANNOT DUE THE THINGS SHE USE TO AND NOT WANT TO CONTINUE FIGHTING AND STATED WHAT THE PT LIKES DONE LIKE HER NAILS AND HER HAIR. THIS NURSE STATED SHE WOULD WORK ON THAT FOR HER.
[2020-01-23] MEDS: Mirtazapine 15 MG Tablet 7.5 MG PO (20:35)
[2020-01-23] MEDS: Levothyroxine 25 MCG TABLET PO (20:37)
[2020-01-24] VITALS (7 sets, daily range): BP systolic 150–152; BP diastolic 71–72; PULSE 64–75; RESP 13–18; TEMP 36.8–37.1; O2SAT 93
[2020-01-24] MEDS: Metoprolol Tartrate 25 MG Tablet PO ×2 (04:59→17:40)
[2020-01-24] MEDS: Amiodarone 200 MG Tablet PO (05:00)
[2020-01-24] MEDS: Senna/Docusate Sodium 1 Tablet PO ×2 (05:00→17:40)
[2020-01-24] MEDS: Acetaminophen 500 MG Tablet 1000 MG PO ×3 (05:00→20:38)
[2020-01-24] MEDS: Enoxaparin 40 MG/0.4 ML Syringe SC (05:01)
[2020-01-24] MEDS: Albuterol 2.5 MG/3 ML VIAL.NEB. INHALATION ×2 (07:03→19:59)
--- NOTE | 2020-01-24 15:36 | NURSING ---
daughter called and updated on pt. pt a little depressed but can come out of her room tomorrow. daughter happy with that.
[2020-01-24] MEDS: Mirtazapine 15 MG Tablet 7.5 MG PO (20:37)
[2020-01-24] MEDS: Levothyroxine 25 MCG TABLET PO (20:38)
[2020-01-25] VITALS (7 sets, daily range): BP systolic 146–148; BP diastolic 61–63; PULSE 51–73; RESP 14–20; TEMP 36.7–36.9; O2SAT 90–98
[2020-01-25] MEDS: Enoxaparin 40 MG/0.4 ML Syringe SC (05:01)
[2020-01-25] MEDS: Acetaminophen 500 MG Tablet 1000 MG PO ×3 (05:02→21:11)
[2020-01-25] MEDS: Amiodarone 200 MG Tablet PO (05:02)
[2020-01-25] MEDS: Metoprolol Tartrate 25 MG Tablet PO ×2 (05:03→17:39)
[2020-01-25] MEDS: Senna/Docusate Sodium 1 Tablet PO (05:03)
[2020-01-25 06:19] LABS: Absolute Lymphocyte Count 1.52 X10^3/uL (0.83-4.51); Absolute Neutrophil Count 2.8 X10^3/uL (2.0-7.7); Basophil# 0.05 X10^3/uL; Basophil% 0.9 % (0-1); Eosinophil# 0.69 X10^3/uL; Eosinophils% 12.2 % (0-5); Hematocrit 35.4 % (37-47); Hemoglobin 11.1 g/dL (12.0-15.0); Lymphocyte # 1.52 X10^3/ul (4.0); Mean Corp Hgb Conc 31.4 g/dL (32-36); Mean Corpuscular Hgb 32.5 pg (27.0-32.0); Mean Corpuscular Volume 103.5 fL (81-99); Mean Platelet Vol. 10.5 fl (6.2-12.0); Monocyte# 0.55 X10^3/uL; Monocyte% 9.8 % (0-10); NRBC Flagged by Analyzer 0 % (0-5); Neutrophil % 49.6 % (47-70); Platelet Count 424 K/mm3 (150-450); RBC Distribution Width CV 15.9 % (11.6-14.6); RBC Distribution Width SD 60.8 fl (35.1-43.9); Red Blood Count 3.42 M/mm3 (4.2-5.4); White Blood Count 5.6 K/mm3 (4.4-11.0)
[2020-01-25] MEDS: Albuterol 2.5 MG/3 ML VIAL.NEB. INHALATION ×2 (06:20→14:00)
[2020-01-25 06:28] LABS: International Normalized Ratio 1.7; Prothrombin Time (Protime)PT. 19.4 SECONDS (11.7-14.9)
[2020-01-25 06:34] LABS: Anion Gap 3 (5-15); BUN 8 mg/dL (7-18); BUN/Creat Ratio 12.8 RATIO (10-20); Calcium,Total 8.8 mg/dL (8.5-10.1); Chloride 109 mmol/L (98-107); Creatinine, Serum 0.62 mg/dL (0.55-1.02); EST Glomerular Filtration Rate 96 mL/min (>60); Est Glom Filt Rate - Afr Amer 117 mL/min (>60); Glucose 87 mg/dL (74-106); Potassium 3.7 mmol/L (3.5-5.1); Sodium Level 143 mmol/L (136-145)
--- NOTE | 2020-01-25 14:55 | NURSING ---
Trever wrap to right wrist rewrapped d/t being loose and leaving indent on fingers d/t edema, pt tolerated well denies pain at this time, pulses palpable, able to move move fingers in right hand but limited.
--- NOTE | 2020-01-25 18:28 | NURSING ---
ambar's office was called asking about f/u and suture removal order, stated was out of office today they will call tomorrow and give orders
[2020-01-25] MEDS: Levothyroxine 25 MCG TABLET PO (21:11)
[2020-01-25] MEDS: Mirtazapine 15 MG Tablet 7.5 MG PO (21:11)
[2020-01-26 05:08] VITALS: BP 135/66; PULSE 60
[2020-01-26] MEDS: Metoprolol Tartrate 25 MG Tablet PO ×2 (05:08→18:07)
[2020-01-26] MEDS: Amiodarone 200 MG Tablet PO (05:08)
[2020-01-26] MEDS: Enoxaparin 40 MG/0.4 ML Syringe SC (05:09)
[2020-01-26] MEDS: Senna/Docusate Sodium 1 Tablet PO (05:09)
[2020-01-26] MEDS: Acetaminophen 500 MG Tablet 1000 MG PO ×3 (05:09→21:35)
[2020-01-26 05:14] VITALS: BP 165/66; PULSE 60; RESP 18; TEMP 36.9; O2SAT 92
--- NOTE | 2020-01-26 10:07 | CASEMGMT ---
Social Work Insurance issued LCD 01/27, DC 01/28. Spoke with pt's dtr. Dtr is not ready for pt to DC home. Pt still is NWBS and needs assistance with ADLs. Explained appeal rights and if outcome is not given by 01/28, pt has financial liability - dtr understood and would like to file an appeal. Spoke with pt and pt agreeable to appeal. IDT is recommending continued therapy and nursing care. Pt is not safe to return home alone. IDT recommending SNF or AL. Pt still having cognitive impairments. Appeal # [id number]. Faxed requested clinicals. Will await outcome. COLEEN LongW
[2020-01-26 11:20] VITALS: PULSE 64; RESP 16
[2020-01-26] MEDS: Albuterol 2.5 MG/3 ML VIAL.NEB. INHALATION ×2 (11:20→19:12)
[2020-01-26 14:17] VITALS: BP 122/60; PULSE 63; RESP 14; TEMP 36.6; O2SAT 91
--- NOTE | 2020-01-26 16:01 | NURSING ---
daughter given up date on mother.
[2020-01-26 18:07] VITALS: BP 122/60; PULSE 63
[2020-01-26] MEDS: Glycerin/Hypromellose/PEG400 15 ml Bottle 2 DRP LEFT EYE (18:43)
[2020-01-26 19:12] VITALS: PULSE 68; RESP 20
[2020-01-26] MEDS: Mirtazapine 15 MG Tablet 7.5 MG PO (21:33)
[2020-01-26] MEDS: Levothyroxine 25 MCG TABLET PO (21:34)
[2020-01-27] VITALS (7 sets, daily range): BP systolic 109–157; BP diastolic 51–64; PULSE 54–72; RESP 14–18; TEMP 37.1–37.2; O2SAT 92–96
[2020-01-27] MEDS: Menthol/Lanolin/Calamine/Znox 113 GM Tube 1 APPLIC TOPICAL ×2 (06:02→17:09)
[2020-01-27] MEDS: Senna/Docusate Sodium 1 Tablet PO ×2 (06:04→17:11)
[2020-01-27] MEDS: Enoxaparin 40 MG/0.4 ML Syringe SC (06:04)
[2020-01-27] MEDS: Acetaminophen 500 MG Tablet 1000 MG PO ×3 (06:04→21:36)
[2020-01-27] MEDS: Amiodarone 200 MG Tablet PO (06:04)
[2020-01-27] MEDS: Metoprolol Tartrate 25 MG Tablet PO ×2 (06:05→17:11)
--- NOTE | 2020-01-27 12:37 | CASEMGMT ---
Addendum entered by Jaclyn West 01/27/20 15:48: [facility] unable to accept. Spoke with dtr- requesting [facility]. Referral made. Original Note: Social Work Patient lost appeal. Spoke with dtr. Explained AL/SNA/Private duty aides and out of pocket costs. Dtr will take pt home with aides. She has begun searching for an aide during the day. Asked a PROPOSAL ENGINEER and pt gets up about 2x/night for the bathroom and she needs max assist. Dtr requested [facility] PT/OT/ST/SN/[place]. Referral made. Referral made to [facility] [place] for BSC, FWW, hospital bed and O2. Plan: DC home alone with family assist and priavet duty aides. [facility] PT/OT/ST/SN/[place]. [facility] [place] - FWW, BSC, hosp. bed, O2. Jaclyn West, CNC SERVICE ENGINEER DOUBLE NEEDLE OPERATOR
[2020-01-27] MEDS: Glycerin/Hypromellose/PEG400 15 ml Bottle 2 DRP LEFT EYE (12:59)
[2020-01-27] MEDS: Albuterol 2.5 MG/3 ML VIAL.NEB. INHALATION ×2 (13:37→19:45)
--- NOTE | 2020-01-27 14:17 | NURSING ---
RASH TO PT LEFT LOWER BACK AND POST LEFT THIGH. PT STATED IT WAS ITCHY. RN AWARE.
--- NOTE | 2020-01-27 20:27 | PCM.DC ---
- Discharge Diagnoses Current Active Problems: Current Active and Chronic Problems (Last Reviewed 05/21/18 @ 13:47 by Kirti Richardson) Debility (Acute) Fall (Acute) Closed left hip fracture (Acute) Right wrist fracture (Acute) Hypoxia (Acute) Pulmonary edema (Acute) Chronic diastolic (congestive) heart failure (Chronic) Atrial fibrillation (Chronic) Osteoporosis (Chronic) Vitamin D deficiency (Chronic) You will use the following diet at home:: No restrictions, Regular Your food should be the consistency of: Regular Your liquids should be the consistency of: Regular/Thin Discharge Activity: Return to Normal Activity, May Shower, Use Walker Weight Bearing Status: Weight bearing as tolerated, No weight bearing - Right upper extremity. Call your doctor if you observe: Fever of 101 or Higher, Inability to urinate, Inability to have a bowel movement, Shortness of breath, Chest pain, Uncontrolled pain Allergies/Adverse Reactions: Allergies budesonide [From Symbicort] Allergy (Verified 01/06/20 12:02) Unknown diltiazem [From Cardizem] Allergy (Verified 01/06/20 12:02) Unknown formoterol [From Symbicort] Allergy (Verified 01/06/20 12:02) Unknown shellfish derived Allergy (Verified 01/17/20 02:25) Food Allergy Medications to take at Discharge Albuterol Aerosols [Ventolin Aerosols] 2.5 mg INHALATION Q4HWA.RT 10/11/16 Amiodarone HCl [Pacerone] 200 mg PO DAILY 01/06/20 Cholecalciferol (VIT D3) [Vitamin D3] 3,000 unit PO QHS 01/06/20 Levothyroxine Sodium [Synthroid] 25 mcg PO QHS 01/06/20 Metoprolol Tartrate [Lopressor (beta yudi)] 25 mg PO BID 01/06/20 Warfarin Sodium [Coumadin] 2.5 mg PO DAILY 01/06/20 Acetaminophen [Tylenol] 1,000 mg PO Q8 01/10/20 Melatonin 3 mg PO QHS PRN tablet 01/27/20 Menthol/Lanolin/Calamine/Znox [Calmoseptine Ointment] 1 applic TOPICAL BID tube 01/27/20 Mirtazapine [Remeron] 7.5 mg PO QHS #15 tab 01/27/20 Peg 400/Hypromellose/Glycerin [Artificial Tears] 2 drop LEFT EYE Q1H PRN bottle 01/27/20 The following prescriptions were given: Mirtazapine [Remeron] 7.5 mg PO QHS #15 tab Transmission Status: Pending to [id number] Orders to be completed after discharge: Prothrombin Time w/INR Time Frame: 3 Days, Facility: [facility], Location: Laboratory Primary Care Physician: Patel Garcia MD [Primary Care Provider] - Please follow up with your Primary Care Physician in: 1 week. Test Results: Test results from this visit will be discussed in further detail at your follow-up appointment, if applicable. Please Follow Up With: Samuel Adams MD When: 2 weeks Please Follow Up With: Ad Baker DO When: 4 weeks Please Follow Up With: Marimar Muir DO When: 2 weeks. Proposed Discharge Date: 01/29/20
--- NOTE | 2020-01-27 20:31 | PCM.DC.SUM ---
Discharge Date and Diagnosis - Problem List Patient Problems: Active and Suspected Problems (Last Reviewed 05/21/18 @ 13:47 by Kirti Richardson) Debility (Acute) Fall (Acute) Closed left hip fracture (Acute) Right wrist fracture (Acute) Hypoxia (Acute) Pulmonary edema (Acute) Date of Admission: 01/10/20 Date of Discharge: 01/29/20 - Primary Discharge Diagnosis Acute Problems: Active Problems (Last Reviewed 05/21/18 @ 13:47 by Kirti Richardson) Debility (Acute) Fall (Acute) Closed left hip fracture (Acute) Right wrist fracture (Acute) Hypoxia (Acute) Pulmonary edema (Acute) - Secondary Discharge Diagnosis Chronic Problems: Chronic Problems (Last Reviewed 05/21/18 @ 13:47 by Kirti Richardson) Chronic diastolic (congestive) heart failure (Chronic) Atrial fibrillation (Chronic) Osteoporosis (Chronic) Vitamin D deficiency (Chronic) Chronic atrial fibrillation (Chronic) Hypertension (Chronic) Other secondary pulmonary hypertension (Chronic) Nonrheumatic tricuspid (valve) insufficiency (Chronic) Premature atrial contractions (Chronic) Noncardiac pulmonary edema (Chronic) COPD (chronic obstructive pulmonary disease) (Chronic) Hypothyroidism (Chronic) Hospital Course and Treatment Imaging Results: 01/10/20 17:25 Diet: Regular Diet Food consistency:: Regular Liquid Consistency:: Regular/Thin Is pt able to select menu?: Yes Diet Comments: npo at midnight 01/19 Operations: None, - - s/p left hip hemiarthroplasty Procedures: None Summary of Care Provided: The patient is a 84 year old Female with below past medical history hospitalized for left hip fracture, underwent left hip hemiarthroplasty 01/07/2020 Dr. Baker, complicated by right wrist fracture, acute on chronic diastolic heart failure, orthostatic hypotension, admitted to TCU with debility, here for rehabilitation, strengthening, prior to discharge home alone. 01/20/2020 Dr. Muir performed right wrist closed reduction percutaneous pinning radius, ulna with application of long arm splint. Resident requires the head of the bed to be elevated more than 30 degrees most of the time due to CHF, COPD, at risk/problems with aspiration. Requires hospital bed. Discharge home alone with family assistance, private duty aides, [facility] PT/OT/ST/SN/SUPERVISOR LIME, [employer] for Front Wheeled Walker, Beside [employer], Hospital Bed, Oxygen. Patient Problems: Active and Suspected Problems (Last Reviewed 05/21/18 @ 13:47 by Kirti Richardson) Debility (Acute) Fall (Acute) Closed left hip fracture (Acute) Right wrist fracture (Acute) Hypoxia (Acute) Pulmonary edema (Acute) - Physical Exam Vitals/I&O's: Vital Signs Temp Pulse Resp BP Pulse Ox 98.9 F 58 L 18 109/51 L 96 01/27/20 13:53 01/27/20 17:11 01/27/20 13:53 01/27/20 17:11 01/27/20 13:53 Oxygen Flow Rate (L/min) 2 Oxygen Delivery Method Nasal Cannula Weight: 71 kg Body Mass Index (BMI) 25.3 Intake and Output for Last 24 Hours 01/25/20 01/26/20 01/27/20 23:59 23:59 23:59 Intake Total 360 / 360 480 / 480 360 / 360 Balance 360 / 360 480 / 480 360 / 360 Current Medications Acetaminophen (Tylenol) 1,000 mg PO Q8 [facility] Last Admin: 01/27/20 13:01 Dose: 1,000 mg Documented by: Albuterol Sulfate (Ventolin Aerosols) 2.5 mg INHALATION Q2H PRN PRN PRN Reason: SOB &/OR WHEEZING Albuterol Sulfate (Ventolin Aerosols) 2.5 mg INHALATION BID.RT [facility] Last Admin: 01/27/20 13:37 Dose: 2.5 mg Documented by: Amiodarone HCl (Cordarone) 200 mg PO DAILY [facility] Last Admin: 01/27/20 06:04 Dose: 200 mg Documented by: Bisacodyl (Dulcolax) 10 mg PO DAILY PRN PRN Reason: Constipation Last Admin: 01/12/20 06:42 Dose: 10 mg Documented by: Calamine/Phenol (Calmoseptine Ointment) 1 applic TOPICAL BID [facility]; Protocol Last Admin: 01/27/20 17:09 Dose: 1 applicatio Documented by: Cholecalciferol (Vitamin D (25mcg)) 3,000 unit PO QHS [facility] Last Admin: 01/26/20 21:35 Dose: 3,000 unit Documented by: Enoxaparin Sodium (Lovenox) 40 mg SC DAILY@0600 [facility] Last Admin: 01/27/20 06:04 Dose: 40 mg Documented by: Levothyroxine Sodium (Synthroid) 25 mcg PO QHS [facility] Last Admin: 01/26/20 21:34 Dose: 25 mcg Documented by: Melatonin (Melatonin) 3 mg PO QHS PRN PRN Reason: INSOMNIA Last Admin: 01/17/20 21:59 Dose: 3 mg Documented by: Metoprolol Tartrate (Lopressor (Beta Denise)) 25 mg PO BID [facility] Last Admin: 01/27/20 17:11 Dose: 25 mg Documented by: Mirtazapine (Remeron) 7.5 mg PO QHS [facility] Last Admin: 01/26/20 21:33 Dose: 7.5 mg Documented by: Nutritional Formula (Lactose Free) (Ensure Enlive) 120 ml PO 4X/DAY [facility] Last Admin: 01/27/20 17:09 Dose: Not Given Documented by: Oxycodone HCl (Oxyir) 2.5 mg PO Q4H PRN PRN PRN Reason: Pain Score 4-10 Last Admin: 01/21/20 11:31 Dose: 2.5 mg Documented by: Polyethylene Glycol (Miralax) 17 gm PO DAILY [facility] Last Admin: 01/27/20 06:05 Dose: Not Given Documented by: Senna/Docusate Sodium (Senokot-S, Raquel-Colace) 1 tablet PO BID [facility] Last Admin: 01/27/20 17:11 Dose: 1 tablet Documented by: Warfarin Sodium (Coumadin (Pbkc)) 2.5 mg PO DAILY@1700 [facility] Last Admin: 01/27/20 17:12 Dose: 2.5 mg Documented by: Discharge Diet: No Restrictions Discharge Activity: Return to Normal Activity, May Shower, Use Walker Weight Bearing Status: Weight bearing as tolerated, No weight bearing - Right upper extremity. Call your doctor if you observe: Fever of 101 or Higher, Inability to urinate, Inability to have a bowel movement, Shortness of breath, Chest pain, Uncontrolled pain Home Medications: Medications to take at Discharge Albuterol Aerosols [Ventolin Aerosols] 2.5 mg INHALATION Q4HWA.RT 10/11/16 Amiodarone HCl [Pacerone] 200 mg PO DAILY 01/06/20 Cholecalciferol (VIT D3) [Vitamin D3] 3,000 unit PO QHS 01/06/20 Levothyroxine Sodium [Synthroid] 25 mcg PO QHS 01/06/20 Metoprolol Tartrate [Lopressor (beta denise)] 25 mg PO BID 01/06/20 Warfarin Sodium [Coumadin] 2.5 mg PO DAILY 01/06/20 Acetaminophen [Tylenol] 1,000 mg PO Q8 01/10/20 Melatonin 3 mg PO QHS PRN tablet 01/27/20 Menthol/Lanolin/Calamine/Znox [Calmoseptine Ointment] 1 applic TOPICAL BID tube 01/27/20 Mirtazapine [Remeron] 7.5 mg PO QHS #15 tab 01/27/20 Peg 400/Hypromellose/Glycerin [Artificial Tears] 2 drop LEFT EYE Q1H PRN bottle 01/27/20 Following Prescrptions Were Given to Patient: Mirtazapine [Remeron] 7.5 mg PO QHS #15 tab Transmission Status: Pending to [id number] Other Amb Orders: Prothrombin Time w/INR Time Frame: 3 Days, Facility: [facility], Location: Laboratory Primary Care Physician: Patel Garcia MD [Primary Care Provider] - Please follow up with your Primary Care Physician in: 1 week. Please Follow Up With: Samuel Adams MD When: 2 weeks Please Follow Up With: Ad Baker DO When: 4 weeks Please Follow Up With: Marimar Muir DO When: 2 weeks. Disposition: Home with Home Health Minutes spent on discharge:: 35 Patient Condition:: Stable Medical Necessity - Tobacco Use Smoking Status: Never smoker Tobacco Use: Non-smoker Meaningful Use Info Meaningful Use Diagnoses (Choose all that apply): None applicable
[2020-01-27] MEDS: Levothyroxine 25 MCG TABLET PO (21:37)
[2020-01-27] MEDS: Mirtazapine 15 MG Tablet 7.5 MG PO (21:37)
[2020-01-28 04:00] VITALS: BP 127/60; PULSE 62; RESP 16; TEMP 37; O2SAT 98
[2020-01-28 05:09] VITALS: PULSE 60
[2020-01-28] MEDS: Metoprolol Tartrate 25 MG Tablet PO ×2 (05:09→17:23)
[2020-01-28] MEDS: Senna/Docusate Sodium 1 Tablet PO (05:10)
[2020-01-28] MEDS: Amiodarone 200 MG Tablet PO (05:10)
[2020-01-28] MEDS: Acetaminophen 500 MG Tablet 1000 MG PO ×3 (05:10→21:37)
[2020-01-28] MEDS: Enoxaparin 40 MG/0.4 ML Syringe SC (05:11)
[2020-01-28] MEDS: Menthol/Lanolin/Calamine/Znox 113 GM Tube 1 APPLIC TOPICAL ×2 (05:11→17:26)
[2020-01-28 05:24] VITALS: PULSE 60; RESP 16; O2SAT 98
[2020-01-28 07:48] VITALS: PULSE 66; RESP 18; O2SAT 97
[2020-01-28] MEDS: Albuterol 2.5 MG/3 ML VIAL.NEB. INHALATION (07:50)
[2020-01-28 08:13] LABS: International Normalized Ratio 3.1; Prothrombin Time (Protime)PT. 31.2 SECONDS (11.7-14.9)
[2020-01-28 14:38] VITALS: BP 122/77; PULSE 72; RESP 14; TEMP 36.8; O2SAT 92
--- NOTE | 2020-01-28 15:10 | NURSING ---
Pt denied need for this nurse to call family for an update.
--- NOTE | 2020-01-28 15:21 | NURSING ---
[facility] PILOT/NAVIGATOR/DDS OPERATOR spoke with daughter about multiple appointments that need made. Daughter stated she wishes to make the appointments on her own.
[2020-01-28 17:23] VITALS: BP 122/77; PULSE 72
[2020-01-28] MEDS: Levothyroxine 25 MCG TABLET PO (21:37)
[2020-01-28] MEDS: Mirtazapine 15 MG Tablet 7.5 MG PO (21:37)
[2020-01-28] MEDS: Glycerin/Hypromellose/PEG400 15 ml Bottle 2 DRP LEFT EYE (21:44)
[2020-01-29 04:00] VITALS: BP 138/65; PULSE 65; RESP 18; TEMP 36.9; O2SAT 97
[2020-01-29] MEDS: Acetaminophen 500 MG Tablet 1000 MG PO (05:20)
[2020-01-29] MEDS: Amiodarone 200 MG Tablet PO (05:20)
[2020-01-29 05:22] VITALS: BP 138/65; PULSE 65
[2020-01-29] MEDS: Metoprolol Tartrate 25 MG Tablet PO (05:22)
[2020-01-29] MEDS: Menthol/Lanolin/Calamine/Znox 113 GM Tube 1 APPLIC TOPICAL (05:28)
[2020-01-29] MEDS: Albuterol 2.5 MG/3 ML VIAL.NEB. INHALATION (07:42)
[2020-01-29 09:50] VITALS: PULSE 66; RESP 18; O2SAT 96
[2020-01-29 10:00] VITALS: PULSE 51; RESP 16; O2SAT 97
[2020-01-29 10:29] VITALS: BP 117/62; PULSE 58; RESP 16; TEMP 37; O2SAT 97
== END 2020-01-29 11:00 | disposition home health service (06) | DRG 560 ==
PROVIDERS: Admitting Provider Family Medicine Geriatric Medicine; PCP Family Medicine; Visit Provider Family Medicine Geriatric Medicine
DX: S72.002D Fracture of unspecified part of neck of left femur, subsequent encounter for closed fracture with routine healing (principal); I50.32 Chronic diastolic (congestive) heart failure; I48.20 Chronic atrial fibrillation, unspecified; Z23 Encounter for immunization; W19.XXXD Unspecified fall, subsequent encounter; E03.9 Hypothyroidism, unspecified; J44.9 Chronic obstructive pulmonary disease, unspecified; E55.9 Vitamin D deficiency, unspecified; I11.0 Hypertensive heart disease with heart failure; S62.101D Fracture of unspecified carpal bone, right wrist, subsequent encounter for fracture with routine healing; I27.29 Other secondary pulmonary hypertension; F32.9 Major depressive disorder, single episode, unspecified
CPT/HCPCS: 36415; 80048; 85025; 85610; 87635; 92507; 92523; 92526; 92610; 94640; 97110; 97116; 97162; 97166; 97530; 97535; 97802; G0009; G2023; J7120; 90670; A4216; J2405; U0002; U0004

== ENCOUNTER 2020-01-20 10:36 | Day surgery (SDC) | payer MEDICARE, SELFPAY ==
[2020-01-10 17:15] VITALS: BMI 25.3
--- NOTE | 2020-01-13 10:50 | PCM.CONS.GEN ---
Reason for Consult Date of Consultation: 01/13/20 Reason for Consultation: left arm pain History of Present Illness: The patient is a 84 year old F who fell onto right outstretched arm after getting up to go to bathroom. didnt hit head, had immediate pain in right arm. Denies loss of consciousness fevers chills headache other constitutional symptoms. No pain in her hips has had previous hip surgery. Only pain is located to the right distal radius and ulna. [] Past Medical History Past Medical History (Chronic Problems): Chronic Problems (Last Reviewed 05/21/18 @ 13:47 by Kirti Richardson) Chronic diastolic (congestive) heart failure (Chronic) Atrial fibrillation (Chronic) Osteoporosis (Chronic) Vitamin D deficiency (Chronic) Chronic atrial fibrillation (Chronic) Hypertension (Chronic) Other secondary pulmonary hypertension (Chronic) Nonrheumatic tricuspid (valve) insufficiency (Chronic) Premature atrial contractions (Chronic) Noncardiac pulmonary edema (Chronic) COPD (chronic obstructive pulmonary disease) (Chronic) Hypothyroidism (Chronic) Medical History: Medical History (Last Reviewed 05/21/18 @ 13:47 by Kirti Richardson) Chronic atrial fibrillation (Chronic) I48.2 Hypertension (Chronic) I10 Other secondary pulmonary hypertension (Chronic) I27.29 Nonrheumatic tricuspid (valve) insufficiency (Chronic) I36.1 Premature atrial contractions (Chronic) I49.1 Noncardiac pulmonary edema (Chronic) J81.1 COPD (chronic obstructive pulmonary disease) (Chronic) J44.9 Hypothyroidism (Chronic) E03.9 Osteoporosis M81.0 Asthma J45.909 Community acquired pneumonia (Resolved) J18.9 Hypoxia (Resolved) R09.02 Allergies budesonide [From Symbicort] Allergy (Verified 01/06/20 12:02) Unknown diltiazem [From Cardizem] Allergy (Verified 01/06/20 12:02) Unknown formoterol [From Symbicort] Allergy (Verified 01/06/20 12:02) Unknown Home Medications: Ambulatory Orders Medication Instructions Recorded Albuterol Aerosols [Ventolin 2.5 mg INHALATION Q4HWA.RT 10/11/16 Aerosols] Amiodarone HCl [Pacerone] 200 mg PO DAILY 01/06/20 Cholecalciferol (VIT D3) [Vitamin 3,000 unit PO QHS 01/06/20 D3] Levothyroxine Sodium [Synthroid] 25 mcg PO QHS 01/06/20 Metoprolol Tartrate [Lopressor 25 mg PO BID 01/06/20 (beta yudi)] Warfarin Sodium [Coumadin] 2.5 mg PO DAILY 01/06/20 Acetaminophen [Tylenol] 1,000 mg PO Q8 01/10/20 Surgical History: Surgical History (Last Reviewed 05/21/18 @ 13:47 by Kirti Richardson) History of cholecystectomy Z90.49 History of tonsillectomy Z90.89 Surgical History: cholecystectomy, total hip arthroplasty - right, tonsillectomy, - - Left hip hemiarthroplasty. Psychiatric History: No pertinent psych hx TIRE RECAPPER History: No pertinent TIRE RECAPPER history Smoking Status: Never smoker Tobacco Use: Non-smoker - *Family History Paternal Family History: Family History (Last Reviewed 05/21/18 @ 13:47 by Kirti Richardson) Sister Hypertension History Items: Heart Disease Maternal Family History: Family History (Last Reviewed 05/21/18 @ 13:47 by Kirti Richardson) Sister Hypertension History Items: No pertinent history Review of Systems Constitutional: Denies: Chills, Fever, Weight Change HEENT: Denies: Head Aches, Sinus Congestion, Sinus Drainage Cardiovascular: Denies: Chest Pain, Palpitations Respiratory: Denies: Cough, Shortness of breath at rest, Sputum production Gastrointestinal: Denies: Abdominal Pain, Nausea, Vomiting Genitourinary: Denies: Dysuria Musculoskeletal: Reports: Hand Pain, Joint Pain. Denies: Joint Tenderness Skin: Denies: Rash, Wounds Neurological: Denies: Numbness, Tingling, Focal weakness Psychiatric: Denies: Anxiety, Depression, Homicidal Ideations, Suicidal Ideations Hematologic/ Lymphatic: Denies: Easy Bruising, Easy Bleeding Patient Problems: Active and Suspected Problems (Last Reviewed 05/21/18 @ 13:47 by Kirti Richardson) Debility (Acute) Fall (Acute) Closed left hip fracture (Acute) Right wrist fracture (Acute) Hypoxia (Acute) Pulmonary edema (Acute) - Physical Exam Vitals/I&O's: Body Mass Index (BMI) 25.3 General: Alert, Oriented x3, Cooperative HEENT: Atraumatic, PERRLA, EOMI, Normocephalic Neck: Supple, No JVD, Negative Carotid Bruits Lungs: Clear to auscultation, Normal air movement Cardiovascular: Regular rate, No murmurs Abdomen: Bowel Sounds Present, Soft, Non Tender Extremities: No edema, Capillary Refill Less than 3 Seconds Skin: No rashes, No breakdown Musculoskeletal: Tenderness - right distal radius and ulna, in splint, neuro intact Neurological: Cranial nerves II-XII grossly intact Psych/Mental Status: Normal Affect, Appropriate Assessment/Plan All Active Problems (Last Reviewed 05/21/18 @ 13:47 by Kirti Richardson) Fall at home (Acute) Fracture of femoral neck, left, closed (Acute) Debility (Acute) Fall (Acute) Closed left hip fracture (Acute) Right wrist fracture (Acute) Hypoxia (Acute) Pulmonary edema (Acute) prison (current) use of anticoagulants (Acute) Community acquired pneumonia (Resolved) Hypoxia (Resolved) right displace distal radius and ulna shaft fractures. Reviewed the pre-operative plans with the patient. Risks and benefits of the procedure were fully explained, including but not limited to infection, neurovascular injury, continued pain, arthritis, stiffness, need for further surgery, re-injury, DVT, PE, general risks of anesthesia, and loss of limb or life. The patient understands all the risks and does wish to proceed with written consent. Discussed this with daughter as well. Discussed risk benefits and alternatives surgery. Patient is had 2 hip fractures as well as this fracture of her wrist family would like to proceed with the most minimally invasive at this point. We did discuss that this fails she might need open reduction internal fixation of her wrist. At this point we will try to close reduction casting versus closed reduction and pinning and casting likely she needs to be in a long-arm cast as this is a both bone and she has quite quite weak bone. Again discussed risks and benefits to open versus closed reduction and pinning versus pinning and casting versus casting alone. Family proceed with close reduction percutaneous pinning will see how this maintains alignment of fracture if displaces further may need plate and screws but document her determine in a couple weeks time if the pain fails. Discussed risks of arthritis and worsening symptoms use of her right hand despite treatment Dragon disclaimer This note was generated with QSecureation software. It may contain incorrect words, spelling, and punctuation that were not noted in checking the note before signing. Essential Procedure Criteria Procedure Essential: Yes Criteria Note: On 11/24/2019 the [place] Department of Health ([facility]) Public Order signed by [facility] Director Lidya Avelar M.D., regarding the Management of Non-Essential Surgeries and Procedures for the purpose of preserving Personal Protective Equipment (PPE) and critical hospital capacity and resources within [place] went into effect as of 11/25/2019 at 5:00PM. According to the [facility] Public Order: This action will remain in full force and effect until the State of Emergency declared by the Governor no longer exists or the Director of the [facility] rescinds or modifies this Order.. This [facility] order stated all non-essential or elective surgeries and procedures that utilize PPE should be delayed unless there is undue risk to the current or future health of a patient. After reviewing the aforementioned [facility] Public Order and the patients clinical case, I have determined that the scheduled procedure meets the criteria to go forward. Risk to Patient if Procedure Delayed: Risk of rapidly worsening to severe symptoms if delayed
[2020-01-13 12:40] VITALS: BP 147/69; PULSE 75; RESP 20; TEMP 38.3; O2SAT 93; BMI 25.2
[2020-01-13] MEDS: Lactated Ringers 1,000 ML 100 ML IV (13:03)
[2020-01-13 13:09] LABS: Prothrombin Time (Protime)PT. 22.2 SECONDS (11.7-14.9)
[2020-01-14 09:41] LABS: Prothrombin Time Fingerstick 26.9 SEC (11.9-14.4)
--- NOTE | 2020-01-20 07:00 | RAD_ITS ---
STUDY: X-RAY - RIGHT WRIST REASON FOR EXAM: Closed reduction of wrist fracture. TECHNIQUE: 4 intraoperative images of the wrist were obtained. COMPARISON: Radiographs 01/10/2020. FINDINGS: There are orthopedic pins transfixing the distal radial and ulnar fractures. 2 minutes and 41 seconds of fluoroscopy time was used. Electronically Signed: Otf Guzman MD at 13:15 EDT Tel , Service support , RAD/Wrist 2 Views
[2020-01-20 10:38] VITALS: BP 130/60; PULSE 68; RESP 16; TEMP 37.4; O2SAT 97; BMI 25.2
[2020-01-20] MEDS: Lactated Ringers 1,000 ML 100 ML IV (10:52)
[2020-01-20] MEDS: Cefazolin 2 GM in 0.9% Normal Saline 100 ML IV (11:12)
[2020-01-20 12:30] VITALS: BP 130/60; BP 167/60; PULSE 63; RESP 16; TEMP 36.8; O2SAT 100
--- NOTE | 2020-01-20 12:38 | PCM.OPRPT ---
Report of Operation Date of Procedure: 01/20/20 Pre-Operative Diagnosis: right distal radius and ulna shaft fractures Post-Operative Diagnosis: same Surgery/Procedure Performed:: right wrist crpp rad and ulna with application of long arm splint pediatric neuropsychologist: Momo Fuentes Type of Anesthesia:: General Anesthesiologist: Leo Grullon Estimated Blood Loss (mL): min Fluids Replaced: see anesthesia chart Description of Procedure: Preop note Patient is an 84-year-old female seen with her daughter at bedside. Patient after having a hip replacement for fracture had a fall onto her outside outstretched right hand. Immediate pain deformity x-rays provided by the floor show a displaced distal radius and distal ulna fracture. Risk benefits alternative surgery discussed with patient and daughter. Risk include but not limited to blood loss, blood clot, infection, neurovascular, failure procedure, loss of life and loss of limb. We will attempt a closed reduction percutaneous pinning with long-arm casting versus an open reduction pending upon our ability to maintain reduction at the fracture site. 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 Family is aware would like to proceed with the above. Operative note Patient seen and examined preoperative area. Right arm was marked. Patient brought to the operating placed supine on the operating table. Signed, anesthesia, antibiotics were administered. Right arm was prepped and draped in usual sterile fashion with. All bony landmarks were well-padded SCDs placed on bilateral lower extremity. Please note the prior to prepping the patient we did achieve good reduction of the fracture site and in doing so she did have a little bit of a hematoma on the dorsum of her hand which is a slight skin tear from some of the traction we placed on her hand this was also cleaned preoperatively. We then were able to reduce the distal radius we placed 354 K wires across the fracture site we then placed cross pin into the ulna stabilizing approximately and then placed the intramedullary screw K wire starting from the ulnar styloid tip crossing the fracture site and distal proximally. We did have took multiple images multi-planes good had good maintenance of the DRUJ as well as tilt volar tilt was about neutral. We then washed off her hand truncated the pins placed Xeroform placed over the pins Adaptic at the skin tear site and then a long-arm splint and arm flexion and ulnar deviation. Patient tolerated procedure well no complication transferred recovery room stable condition Postoperative note Nonweightbearing on the right arm for 2 weeks Call with increased pain numbness tingling or other issues arise May use platform walker and weight-bear through forearm but not through hand Call with increased pain numbness tingling further issues arise Dragon disclaimer This note was generated with [employer] dictation software. It may contain incorrect words, spelling, and punctuation that were not noted in checking the note before signing. Grafts/Implants Used: 54 kwires
[2020-01-20 12:45] VITALS: BP 130/60; BP 151/57; PULSE 63; RESP 16; O2SAT 93
[2020-01-20 12:56] VITALS: BP 130/60; PULSE 62; RESP 16; O2SAT 96
[2020-01-20 13:00] VITALS: BP 130/60; BP 141/54; PULSE 60; RESP 16; O2SAT 100
[2020-01-20 13:15] VITALS: BP 130/60; BP 148/55; PULSE 60; RESP 16; TEMP 36.7; O2SAT 100
--- NOTE | 2020-01-21 10:37 | HP.PCM_ITS ---
History and Physical I have re-examined the patient. There are no clinical changes since date of exam. Patient Name: SHELLI WOOD Date of : 1935 Patient Status: Surgical Day Care Attending Provider: Marimar Muir Date: 01/13/20 10:50 Initialization Date: 01/13/20 10:50 Reason for Consult Date of Consultation: 01/13/20 Reason for Consultation: left arm pain History of Present Illness: The patient is a 84 year old F who fell onto right outstretched arm after getting up to go to bathroom. didnt hit head, had immediate pain in right arm. Denies loss of consciousness fevers chills headache other constitutional symptoms. No pain in her hips has had previous hip surgery. Only pain is located to the right distal radius and ulna. [] Past Medical History Past Medical History (Chronic Problems): Chronic Problems (Last Reviewed 05/21/18 @ 13:47 by Kirti Richardson) Chronic diastolic (congestive) heart failure (Chronic) Atrial fibrillation (Chronic) Osteoporosis (Chronic) Vitamin D deficiency (Chronic) Chronic atrial fibrillation (Chronic) Hypertension (Chronic) Other secondary pulmonary hypertension (Chronic) Nonrheumatic tricuspid (valve) insufficiency (Chronic) Premature atrial contractions (Chronic) Noncardiac pulmonary edema (Chronic) COPD (chronic obstructive pulmonary disease) (Chronic) Hypothyroidism (Chronic) Medical History: Medical History (Last Reviewed 05/21/18 @ 13:47 by Kirti Richardson) Chronic atrial fibrillation (Chronic) I48.2 Hypertension (Chronic) I10 Other secondary pulmonary hypertension (Chronic) I27.29 Nonrheumatic tricuspid (valve) insufficiency (Chronic) I36.1 Premature atrial contractions (Chronic) I49.1 Noncardiac pulmonary edema (Chronic) J81.1 COPD (chronic obstructive pulmonary disease) (Chronic) J44.9 Hypothyroidism (Chronic) E03.9 Osteoporosis M81.0 Asthma J45.909 Community acquired pneumonia (Resolved) J18.9 Hypoxia (Resolved) R09.02 Allergies budesonide [From Symbicort] Allergy (Verified 01/06/20 12:02) Unknown diltiazem [From Cardizem] Allergy (Verified 01/06/20 12:02) Unknown formoterol [From Symbicort] Allergy (Verified 01/06/20 12:02) Unknown Home Medications: Ambulatory Orders Medication Instructions Recorded Albuterol Aerosols [Ventolin 2.5 mg INHALATION Q4HWA.RT 10/11/16 Aerosols] Amiodarone HCl [Pacerone] 200 mg PO DAILY 01/06/20 Cholecalciferol (VIT D3) [Vitamin 3,000 unit PO QHS 01/06/20 D3] Levothyroxine Sodium [Synthroid] 25 mcg PO QHS 01/06/20 Metoprolol Tartrate [Lopressor 25 mg PO BID 01/06/20 (beta yudi)] Warfarin Sodium [Coumadin] 2.5 mg PO DAILY 01/06/20 Acetaminophen [Tylenol] 1,000 mg PO Q8 01/10/20 Surgical History: Surgical History (Last Reviewed 05/21/18 @ 13:47 by Kirti Richardson) History of cholecystectomy Z90.49 History of tonsillectomy Z90.89 Surgical History: cholecystectomy, total hip arthroplasty - right, tonsillectomy, - - Left hip hemiarthroplasty. Psychiatric History: No pertinent psych hx MECHANICAL COMMISSIONING ENGINEER History: No pertinent MECHANICAL COMMISSIONING ENGINEER history Smoking Status: Never smoker Tobacco Use: Non-smoker - *Family History Paternal Family History: Family History (Last Reviewed 05/21/18 @ 13:47 by Kirti Richardson) Sister Hypertension History Items: Heart Disease Maternal Family History: Family History (Last Reviewed 05/21/18 @ 13:47 by Kirti Richardson) Sister Hypertension History Items: No pertinent history Review of Systems Constitutional: Denies: Chills, Fever, Weight Change HEENT: Denies: Head Aches, Sinus Congestion, Sinus Drainage Cardiovascular: Denies: Chest Pain, Palpitations Respiratory: Denies: Cough, Shortness of breath at rest, Sputum production Gastrointestinal: Denies: Abdominal Pain, Nausea, Vomiting Genitourinary: Denies: Dysuria Musculoskeletal: Reports: Hand Pain, Joint Pain. Denies: Joint Tenderness Skin: Denies: Rash, Wounds Neurological: Denies: Numbness, Tingling, Focal weakness Psychiatric: Denies: Anxiety, Depression, Homicidal Ideations, Suicidal Ideations Hematologic/ Lymphatic: Denies: Easy Bruising, Easy Bleeding Patient Problems: Active and Suspected Problems (Last Reviewed 05/21/18 @ 13:47 by Kirti Richardson) Debility (Acute) Fall (Acute) Closed left hip fracture (Acute) Right wrist fracture (Acute) Hypoxia (Acute) Pulmonary edema (Acute) - Physical Exam Vitals/I&O's: Body Mass Index (BMI) 25.3 General: Alert, Oriented x3, Cooperative HEENT: Atraumatic, PERRLA, EOMI, Normocephalic Neck: Supple, No JVD, Negative Carotid Bruits Lungs: Clear to auscultation, Normal air movement Cardiovascular: Regular rate, No murmurs Abdomen: Bowel Sounds Present, Soft, Non Tender Extremities: No edema, Capillary Refill Less than 3 Seconds Skin: No rashes, No breakdown Musculoskeletal: Tenderness - right distal radius and ulna, in splint, neuro intact Neurological: Cranial nerves II-XII grossly intact Psych/Mental Status: Normal Affect, Appropriate Assessment/Plan All Active Problems (Last Reviewed 05/21/18 @ 13:47 by Kirti Richardson) Fall at home (Acute) Fracture of femoral neck, left, closed (Acute) Debility (Acute) Fall (Acute) Closed left hip fracture (Acute) Right wrist fracture (Acute) Hypoxia (Acute) Pulmonary edema (Acute) intermediate card tender (current) use of anticoagulants (Acute) Community acquired pneumonia (Resolved) Hypoxia (Resolved) right displace distal radius and ulna shaft fractures. Reviewed the pre-operative plans with the patient. Risks and benefits of the procedure were fully explained, including but not limited to infection, neurovascular injury, continued pain, arthritis, stiffness, need for further surgery, re-injury, DVT, PE, general risks of anesthesia, and loss of limb or life. The patient understands all the risks and does wish to proceed with written consent. Discussed this with daughter as well. Discussed risk benefits and alternatives surgery. Patient is had 2 hip fractures as well as this fracture of her wrist family would like to proceed with the most minimally invasive at this point. We did discuss that this fails she might need open reduction internal fixation of her wrist. At this point we will try to close reduction casting versus closed reduction and pinning and casting likely she needs to be in a long-arm cast as this is a both bone and she has quite quite weak bone. Again discussed risks and benefits to open versus closed reduction and pinning versus pinning and casting versus casting alone. Family proceed with close reduction percutaneous pinning will see how this maintains alignment of fracture if displaces further may need plate and screws but document her determine in a couple weeks time if the pain fails. Discussed risks of arthritis and worsening symptoms use of her right hand despite treatment Dragon disclaimer This note was generated with [employer] dictation software. It may contain incorrect words, spelling, and punctuation that were not noted in checking the note before signing. Essential Procedure Criteria Procedure Essential: Yes Criteria Note: On 11/24/2019 the [facility] ([facility]) Public Order signed by [facility] Director Lidya Avelar M.D., regarding the Management of Non- Essential Surgeries and Procedures for the purpose of preserving Personal Protective Equipment (PPE) and critical hospital capacity and resources within [place] went into effect as of 11/25/2019 at 5:00PM. According to the [facility] Public Order: This action will remain in full force and effect until the State of Emergency declared by the Governor no longer exists or the Director of the [facility] rescinds or modifies this Order.. This [facility] order stated all non-essential or elective surgeries and procedures that utilize PPE should be delayed unless there is undue risk to the current or future health of a patient. After reviewing the aforementioned [facility] Public Order and the patients clinical case, I have determined that the scheduled procedure meets the criteria to go forward. Risk to Patient if Procedure Delayed: Risk of rapidly worsening to severe symptoms if delayed
[2020-02-03 10:46] LABS: Prothrombin Time Fingerstick 17.2 SEC (11.9-14.4)
== END 2020-01-20 17:13 ==
LOC: SDC 10:36 → AC 10:37
PROVIDERS: Anesthesiology; PCP Family Medicine; Referring Provider Orthopaedic Surgery; Visit Provider Orthopaedic Surgery
PROC: (CPT 25565; principal; 2020-01-20 11:20)
DX: S52.301A Unspecified fracture of shaft of right radius, initial encounter for closed fracture (principal); S52.201A Unspecified fracture of shaft of right ulna, initial encounter for closed fracture; I48.91 Unspecified atrial fibrillation; I11.0 Hypertensive heart disease with heart failure; I50.32 Chronic diastolic (congestive) heart failure; I27.29 Other secondary pulmonary hypertension; E03.9 Hypothyroidism, unspecified; J44.9 Chronic obstructive pulmonary disease, unspecified; Z79.51 Long term (current) use of inhaled steroids; Z79.01 Long term (current) use of anticoagulants; Z79.899 Other long term (current) drug therapy; Z99.81 Dependence on supplemental oxygen; W18.30XA Fall on same level, unspecified, initial encounter; Y93.89 Activity, other specified; Y92.003 Bedroom of unspecified non-institutional (private) residence as the place of occurrence of the external cause; Y99.8 Other external cause status
CPT/HCPCS: 01820; 25565; 36416; 73100; 76000; 85610

== ENCOUNTER → 2020-02-25 09:22 | Outpatient (CLI) | payer MEDICARE, SELFPAY ==
--- NOTE | 2020-02-25 09:23 | RAD_ITS ---
STUDY: X-RAY - RIGHT WRIST REASON FOR EXAM: Follow-up fracture, surgery 1 month ago. TECHNIQUE: 3 view(s) of the wrist were obtained. COMPARISON: Intraoperative images 01/20/2020. FINDINGS: There is osteopenia. There is no interval change of the alignment and position of the mildly impacted distal radial fracture transfixed with orthopedic pins with interval development of early callus formation. There is a nondisplaced distal ulnar fracture transfixed with an orthopedic pin with early callus formation. Normal radiocarpal articulation. Normal distal radioulnar articulation. Normal carpal bones. Normal carpal articulations. Normal carpometacarpal articulation of the thumb. Normal second through fifth carpometacarpal articulations. Normal visualized metacarpal bones. There is soft tissue swelling RAD/Wrist min 3 Views IMPRESSION: Healing fractures of the distal radius and distal ulna without interval change of alignment and position. Electronically Signed: Otf Guzman MD at 13:46 EDT Tel , Service support ,
== END ==
PROVIDERS: PCP Family Medicine; Referring Provider Orthopaedic Surgery; Visit Provider Orthopaedic Surgery
DX: S62.101A Fracture of unspecified carpal bone, right wrist, initial encounter for closed fracture (principal)
CPT/HCPCS: 73110

== ENCOUNTER → 2020-02-29 10:57 | Outpatient (CLI) | payer MEDICARE, SELFPAY ==
[2020-02-25 10:07] VITALS: BMI 25.2
--- NOTE | 2020-02-29 10:58 | RAD_ITS ---
STUDY: X-RAY - PELVIS AND LEFT HIP REASON FOR EXAM: Female, 84 years old. POST OP LEFT HIP TECHNIQUE: 3 views of the pelvis and hip. COMPARISON: None. FINDINGS: Patient is status post left hip replacement surgery. Components demonstrate anatomic alignment. No plain film evidence of hardware complication, failure, or acute traumatic abnormality. Evidence of old healed left superior and inferior pubic rami fractures. Surgical hardware in the right femur free of complication RAD/HIP, UNI W/ Pelvis 2-3 Views IMPRESSION: Replaced left hip joint demonstrates anatomic alignment, no plain film evidence of hardware complication or failure Electronically Signed: Hira Davis MD at 12:02 EDT , Service support ,
== END ==
PROVIDERS: PCP Family Medicine; Referring Provider Orthopaedic Surgery; Visit Provider Orthopaedic Surgery
DX: S72.002A Fracture of unspecified part of neck of left femur, initial encounter for closed fracture (principal)
CPT/HCPCS: 73502

== ENCOUNTER → 2020-03-08 | Outpatient (CLI) | payer MEDICARE, SELFPAY ==
[2020-02-29 11:05] VITALS: BMI 25.2
== END | disposition home or self-care (01) ==
LOC: PSN 14:10
PROVIDERS: PCP Family Medicine; Referring Provider Internal Medicine Critical Care Medicine; Visit Provider Internal Medicine Critical Care Medicine
DX: J47.9 Bronchiectasis, uncomplicated (principal)
CPT/HCPCS: 94667

== ENCOUNTER → 2020-03-10 | Outpatient (CLI) | payer MEDICARE, SELFPAY ==
[2020-03-10 10:35] VITALS: BMI 25.2
--- NOTE | 2020-03-10 11:10 | RAD_ITS ---
STUDY: X-RAY - RIGHT WRIST REASON FOR EXAM: Postoperative follow-up of fracture. TECHNIQUE: 3 view(s) of the wrist were obtained. COMPARISON: Radiographs 02/25/2020. FINDINGS: There is osteopenia. There is a healing mildly impacted distal radial fracture with interval removal of orthopedic pins. There is a healing distal ulnar fracture with a portion of an orthopedic pin remaining in the distal ulna. Normal radiocarpal articulation. Normal distal radioulnar articulation. Normal carpal bones. Normal carpal articulations. Normal carpometacarpal articulation of the thumb. Normal second through fifth carpometacarpal articulations. Normal visualized metacarpal bones. There is decreasing soft tissue swelling. RAD/Wrist min 3 Views IMPRESSION: Interval removal of orthopedic pins from healing fractures of the distal radius and distal ulna without interval change of alignment and position. Electronically Signed: Otf Guzman MD at 14:24 EDT Tel , Service support ,
== END | disposition home or self-care (01) ==
LOC: HPRAD 11:10
PROVIDERS: PCP Family Medicine; Referring Provider Orthopaedic Surgery; Visit Provider Orthopaedic Surgery
DX: M25.531 Pain in right wrist (principal)
CPT/HCPCS: 73110

== ENCOUNTER → 2020-05-17 | Outpatient (CLI) | payer MEDICARE, SELFPAY ==
[2020-02-29 11:05] VITALS: BMI 25.2
[2020-05-05 10:33] VITALS: BMI 25.2
[2020-05-17 12:30] VITALS: PULSE 49; PULSE 50; PULSE 54; PULSE 55; PULSE 56; PULSE 58; O2SAT 92; O2SAT 93; O2SAT 94
--- NOTE | 2020-05-17 12:56 | CPS ---
Patient states she wears 3L of oxygen just at night.
--- NOTE | 2020-05-18 08:43 | PCM.PSN.6M ---
PSN 6 Minute Walk Test - 6 Minute Walk Test 6 Minute Walk Test: 6 Minute Walk Test PSN:6-Minute Walk Test Start: 05/17/20 12:53 Freq: Status: Active Protocol: RESP.6MINW Document 05/17/20 12:30 HJ (Rec: 05/17/20 12:57 [id number]) 6 Minute Walk Test Date Performed 05/17/20 Time Performed 12:30 Height 5 ft 7 in Weight: 150 lb Weight in Pounds 150.[address]: Saumel Adams FIO2 (% Oxygen) 21 Assistive device used: Walker Pre-test Oxygen Delivery Method Room Air Pulse Ox (%) 92 Pulse Rate (60-100 beats/min) 50 L Dyspnea Josey Scale (0-10) 0 Exertion Josey Scale (6-20) 6 1st minute Oxygen Delivery Method Room Air Pulse Ox (%) 94 Pulse Rate (60-100 beats/min) 49 L 2nd minute Oxygen Delivery Method Room Air Pulse Ox (%) 93 Pulse Rate (60-100 beats/min) 56 L 3rd minute Oxygen Delivery Method Room Air Pulse Ox (%) 93 Pulse Rate (60-100 beats/min) 54 L 4th minute Oxygen Delivery Method Room Air Pulse Ox (%) 93 Pulse Rate (60-100 beats/min) 55 L 5th minute Oxygen Delivery Method Room Air Pulse Ox (%) 92 Pulse Rate (60-100 beats/min) 55 L 6th minute Oxygen Delivery Method Room Air Pulse Ox (%) 94 Pulse Rate (60-100 beats/min) 58 L Post-test Oxygen Delivery Method Room Air Pulse Ox (%) 93 Pulse Rate (60-100 beats/min) 54 L Dyspnea Josey Scale (0-10) 3 Exertion Josey Scale (6-20) 11 Full Laps Walked 10 Partial Lap, Number of Tiles Walked 0 Total Distance Walked (ft) 590 05/17/20 12:56 Cardiopulmonary Services by Rashmi Smith Patient states she wears 3L of oxygen just at night. Initialized on 05/17/20 12:56 - END OF NOTE - Interpretation Interpretation: The patient ambulated 590 feet over the course of 6 minutes beginning on room air with the use of a walker. Pretesting oxygen saturation was noted to be 92% on room air. With ambulation, the marvel oxygen saturation was 92%. Although there was evidence of impaired walk distance, there was no significant exertional oxygen desaturation. - Recommendations Recommendations: There is no indication for the use of supplemental oxygen at this time.
== END | disposition home or self-care (01) ==
LOC: PSN 12:25
PROVIDERS: PCP Family Medicine; Referring Provider Internal Medicine Critical Care Medicine; Visit Provider Internal Medicine Critical Care Medicine
DX: I27.29 Other secondary pulmonary hypertension (principal)
CPT/HCPCS: 94618

== ENCOUNTER → 2020-10-27 12:46 | Outpatient (CLI) | payer MEDICARE, SELFPAY ==
[2020-10-14 13:58] VITALS: BMI 20.9
--- NOTE | 2020-10-27 12:49 | CT_ITS ---
STUDY: CT FACIAL BONES WITHOUT CONTRAST REASON FOR EXAM: Female, 84 years old. Left facial mass, dacryocystitis of left lacrimal passage. Hx hypertension. RADIATION DOSAGE (If Supplied By Facility): CTDIvol = ( 29.38 ) mGy, DLP = ( 550.22 ) mGycm TECHNIQUE: The patient was scanned in a multi detector CT scanner. Sagittal and coronal images were reconstructed. Individualized dose optimization techniques were used for this CT. COMPARISON: None. FINDINGS: There is a 1.5 cm x 1.2 cm x 1 cm rounded soft tissue density with cystic components arising along the medial inferior aspect of the nose and the medial inferior aspect of the left orbit. Normal orbital lozano and orbital contents. Normal nasal bones and anterior nasal spine. Nasal septal deviation towards the left side of the midline with a nasal spur. Normal facial bones. There is no demonstrated fracture. Normal visualized paranasal sinuses. CT/Sinus/Facial Bone IMPRESSION: The palpable abnormality corresponds to 1.5 cm x 1.2 cm x 1 cm rounded soft tissue densities with cystic components arising along the medial inferior aspect of the nose and medial inferior aspect of the left orbit. Electronically Signed: Jamie Terry MD at 13:19 EST , Service support ,
== END ==
PROVIDERS: PCP Family Medicine; Referring Provider Otolaryngology; Visit Provider Otolaryngology
DX: H04.302 Unspecified dacryocystitis of left lacrimal passage (principal); R22.0 Localized swelling, mass and lump, head
CPT/HCPCS: 70486

== ENCOUNTER 2020-11-02 09:41 | Outpatient (RCR) | payer MEDICARE, SELFPAY ==
[2020-10-14 13:58] VITALS: BMI 20.9
== END 2020-11-02 23:59 ==
LOC: IMMUN 09:41
PROVIDERS: PCP Family Medicine; Visit Provider Family Medicine
DX: Z23 Encounter for immunization (principal)
CPT/HCPCS: 0011A; 0012A

== ENCOUNTER → 2020-11-16 | Outpatient (CLI) | payer MEDICARE, SELFPAY ==
[2020-10-14 13:58] VITALS: BMI 20.9
== END | disposition home or self-care (01) ==
LOC: LABSPEC 14:08
PROVIDERS: PCP Family Medicine; Referring Provider Ophthalmology; Visit Provider Ophthalmology
DX: H04.302 Unspecified dacryocystitis of left lacrimal passage (principal)
CPT/HCPCS: 87070; 87077; 87205

== ENCOUNTER → 2021-05-09 13:57 | Outpatient (CLI) | payer MEDICARE, SELFPAY ==
--- NOTE | 2021-05-09 13:59 | RAD_ITS ---
INDICATION: intermission coordinator use of amiodarone EXAMINATION/TECHNIQUE: X-RAY - XR Chest 2 Views COMPARISON: None. FINDINGS: LINES/DEVICES: None. LUNGS: Biapical prominence suggestive of COPD changes. Mild bilateral hilar prominence, peribronchial cuffing and mild prominence of the hilar vessels Is seen. No evidence of focal infiltrate or consolidation. Biapical prominence suggestive of COPD changes. No evidence of pneumothorax or parenchymal contusion. MEDIASTINUM AND CARDIOVASCULAR STRUCTURES: Cardiac silhouette not enlarged. Central airways and mediastinal contour are unremarkable. BONES AND SOFT TISSUES: Unremarkable. RAD/Chest PA and Lateral IMPRESSION: COPD changes, no acute cardiopulmonary disease is seen No radiographic evidence of acute cardiopulmonary disease. Electronically Signed: Howard Honeycutt MD at 15:31 EDT Tel , Service support ,
[2021-05-09 15:55] LABS: Absolute Lymphocyte Count 1.54 X10^3/uL (0.83-4.51); Absolute Neutrophil Count 5.3 X10^3/uL (2.0-7.7); Basophil# 0.03 X10^3/uL; Basophil% 0.4 % (0-1); Eosinophil# 0.23 X10^3/uL; Hemoglobin 13.1 g/dL (12.0-15.0); Lymphocyte # 1.54 X10^3/ul (0.83-4.51); Lymphocyte % 20.2 % (19-41); Mean Corp Hgb Conc 31.2 g/dL (32-36); Mean Corpuscular Hgb 31.4 pg (27.0-32.0); Mean Corpuscular Volume 100.7 fL (81-99); Mean Platelet Vol. 11.7 fl (6.2-12.0); Monocyte# 0.46 X10^3/uL; NRBC Flagged by Analyzer 0 % (0-5); Neutrophil # 5.33 X10^3/uL (2.7-7.7); Neutrophil % 70.1 % (47-70); Platelet Count 214 K/mm3 (150-450); RBC Distribution Width CV 13.6 % (11.6-14.6); RBC Distribution Width SD 50.5 fl (35.1-43.9); Red Blood Count 4.17 M/mm3 (4.2-5.4); White Blood Count 7.6 K/mm3 (4.4-11.0)
[2021-05-09 16:26] LABS: Vitamin D,25 Hydroxy 64.4 ng/mL
[2021-05-09 16:35] LABS: ALB/GLOB Ratio 0.9 RATIO (0.9-2.4); AST(SGOT) 13 U/L (15-37); Alanine Aminotransfer ALT/SGPT 17 U/L (13-56); Albumin, Serum 3.5 g/dL (3.2-5.0); Alkaline Phosphatase 80 U/L (45-117); Anion Gap 4 (5-15); BUN 11 mg/dL (7-18); BUN/Creat Ratio 14.8 RATIO (10-20); Calcium,Total 8.8 mg/dL (8.5-10.1); Chloride 104 mmol/L (98-107); Creatinine, Serum 0.74 mg/dL (0.55-1.02); EST Glomerular Filtration Rate 79 mL/min (>60); Est Glom Filt Rate - Afr Amer 95 mL/min (>60); Ferritin 84 ng/mL (8-252); Free T3 1.7 pg/mL (2.18-3.98); Globulin 3.8 g/dL (2.2-4.2); Glucose 78 mg/dL (74-106); Iron 65 ug/dL (50-170); Potassium 3.6 mmol/L (3.5-5.1); Protein, Total 7.3 g/dL (6.4-8.2); Sodium Level 140 mmol/L (136-145); T4 Free Direct 1.57 ng/dL (0.76-1.46)
== END ==
PROVIDERS: PCP Family Medicine; Referring Provider Physician Assistant Medical; Visit Provider Physician Assistant Medical
DX: I50.32 Chronic diastolic (congestive) heart failure (principal); I48.0 Paroxysmal atrial fibrillation; E03.9 Hypothyroidism, unspecified; D64.9 Anemia, unspecified; E55.9 Vitamin D deficiency, unspecified
CPT/HCPCS: 36415; 71046; 80053; 82306; 82728; 83540; 84439; 84443; 84481; 85025

== ENCOUNTER → 2022-03-07 | Outpatient (CLI) | payer MEDICARE, SELFPAY ==
[2022-03-07 12:52] LABS: Absolute Lymphocyte Count 1.83 X10^3/uL (0.83-4.51); Absolute Neutrophil Count 4.2 X10^3/uL (2.0-7.7); Basophil# 0.04 X10^3/uL; Basophil% 0.6 % (0-1); Eosinophil# 0.32 X10^3/uL; Eosinophils% 4.7 % (0-5); Hematocrit 42.4 % (37-47); Hemoglobin 13.7 g/dL (12.0-15.0); Lymphocyte # 1.83 X10^3/ul (0.83-4.51); Lymphocyte % 26.8 % (19-41); Mean Corp Hgb Conc 32.3 g/dL (32-36); Mean Corpuscular Hgb 30.8 pg (27.0-32.0); Mean Corpuscular Volume 95.3 fL (81-99); Mean Platelet Vol. 10.8 fl (6.2-12.0); Monocyte# 0.38 X10^3/uL; Monocyte% 5.6 % (0-10); NRBC Flagged by Analyzer 0 % (0-5); Neutrophil # 4.23 X10^3/uL (2.7-7.7); Platelet Count 211 K/mm3 (150-450); RBC Distribution Width SD 45.3 fl (35.1-43.9); Red Blood Count 4.45 M/mm3 (4.2-5.4); White Blood Count 6.8 K/mm3 (4.4-11.0)
[2022-03-07 13:33] LABS: Anion Gap 5 (5-15); BUN 18 mg/dL (7-18); BUN/Creat Ratio 27.3 RATIO (10-20); Calcium,Total 9.1 mg/dL (8.5-10.1); Chloride 105 mmol/L (98-107); Creatinine, Serum 0.66 mg/dL (0.55-1.02); EST Glomerular Filtration Rate 90 mL/min (>60); Est Glom Filt Rate - Afr Amer 109 mL/min (>60); Glucose 84 mg/dL (74-106); Iron 91 ug/dL (50-170); Sodium Level 140 mmol/L (136-145); T4 Free Direct 1.31 ng/dL (0.76-1.46); Thyroid Stim Hormone (TSH) 3.22 uIU/mL (0.358-3.74)
== END | disposition home or self-care (01) ==
LOC: LAB 12:26
PROVIDERS: PCP Family Medicine; Referring Provider Family Medicine; Visit Provider Family Medicine
DX: I48.91 Unspecified atrial fibrillation (principal); E03.9 Hypothyroidism, unspecified; D64.9 Anemia, unspecified
CPT/HCPCS: 36415; 80048; 83540; 84439; 84443; 85025

== ENCOUNTER 2022-08-02 09:57 | Emergency (ER) | payer MEDICARE, SELFPAY ==
[2022-08-02] VITALS (11 sets, daily range): BP systolic 146–163; BP diastolic 54–85; PULSE 83–103; RESP 18–22; TEMP 36.8–37; O2SAT 86–94; BMI 22.7
--- NOTE | 2022-08-02 10:23 | EKG12_ITS ---
Test Reason : SOB Blood Pressure : / mmHG Vent. Rate : 097 BPM Atrial Rate : 097 BPM P-R Int : 254 ms QRS Dur : 078 ms QT Int : 362 ms P-R-T Axes : 089 -72 071 degrees QTc Int : 459 ms Sinus rhythm with 1st degree A-V block Left axis deviation Abnormal ECG Confirmed by MARY DELATORRE, MINO ([id number]), market editor HAKAN BEST ([id number]) on 08/06/2022 11:49:35 AM Referred By: Confirmed By:MINO HERNANDEZ MD
--- NOTE | 2022-08-02 10:25 | EDS_ITS ---
HPI History of Present Illness Chief Complaint: Shortness of Breath Informant: patient and family Associated Symptoms cough Chest Pain: Positive for None Narrative Narrative: Patient states she has had more shortness of breath than usual since last night. Yesterday she felt fatigued and rundown easily, more than usual. She has a chronic cough with some phlegm/sputum production, that has been a little worse since yesterday. Some mild rhinorrhea and congestion without sinus pressure, odynophagia, headache, no definite fevers or chills even subjectively. No known sick contacts. Family states she has oxygen at home and she is post to wear it at night but unknown if she does each night. They also state that another family member, who does the majority of caretaking at home where she lives, states that she is inconsistent with taking her medications. Patient does not know if she has orthopnea or not since she does not lie down. Denies any leg swelling. Patient does not know much of her past medical history but EMR states she has a history of paroxysmal atrial fibrillation, diastolic congestive heart failure, COPD, as well as bronchiectasis. She has been vaccinated against COVID at least once but does not think she has had the most recent booster. [facility] Medical History Asthma Atrial fibrillation Bilateral carotid bruits Bronchitis Chronic atrial fibrillation Closed left hip fracture COPD (chronic obstructive pulmonary disease) Essential hypertension Fall Fall at home Fracture of femoral neck, left, closed Hypertension Hypothyroidism Nonrheumatic tricuspid (valve) insufficiency Osteoporosis Other secondary pulmonary hypertension Paroxysmal atrial fibrillation Pneumonia Premature atrial contractions Right wrist fracture Thyroid disorder Home Medications cholecalciferol (vitamin D3) 25 mcg (1,000 unit) tablet 3,000 unit PO QHS supplement 01/06/20 [History Last Taken 08/01/22 22:00] peg [id number] 1 %-0.2 %-0.2 % eye drops 2 drp LEFT EYE Q1H PRN DRY EYES 01/27/20 [Rx Last Taken 08/02/22 0800] albuterol sulfate 2.5 mg/3 mL (0.083 %) solution for nebulization 2.5 mg inhalation BID PRN Bronchospasm 10/14/20 [History Last Taken 08/02/22 0800] albuterol sulfate 90 mcg/actuation aerosol inhaler 2 puff inhalation BID PRN Bronchospasm 10/14/20 [History Last Taken 08/02/22 0800] ascorbate calcium (vitamin C) 500 mg tablet 500 mg PO DAILY 10/14/20 [History Last Taken 08/01/22 08:00] levothyroxine 25 mcg tablet 25 mcg PO DAILY 10/14/20 [History Last Taken 08/01/22 08:00] mecobalamin (vitamin B12) 5,000 mcg disintegrating tablet 10,000 mcg PO DAILY 10/14/20 [History Last Taken 08/01/22 08:00] metoprolol tartrate 25 mg tablet 25 mg PO DAILY heart 10/14/20 [History Last Taken 08/01/22 08:00] fluticasone propionate 50 mcg/actuation nasal spray,suspension (Flonase Allergy Relief) 1 spray intranasal DAILY PRN Allergy Symptoms 03/07/22 [History Last Taken Unknown] vitamins A,C,Y-merh-ikzzjn 14,320 unit-226 mg-200 unit capsule (PreserVision AREDS) 1 cap PO BID 03/07/22 [History Last Taken 08/01/22 2200] amiodarone 200 mg tablet 100 mg PO DAILY #45 tabs 07/09/22 [Rx Last Taken 08/01/22 08:00] doxycycline monohydrate 100 mg capsule 100 mg PO BID #20 CAPSULES 08/02/22 [Rx Last Taken Unknown] prednisone 10 mg tablet 10 mg PO UD #30 tabs 08/02/22 [Rx Last Taken Unknown] Allergy/AdvReac Type Severity Reaction Status Date / Time budesonide [From Symbicort] Allergy Unknown Verified 08/02/22 10:03 diltiazem [From Cardizem] Allergy Unknown Verified 08/02/22 10:03 formoterol [From Symbicort] Allergy Unknown Verified 08/02/22 10:03 shellfish derived Allergy Food Verified 08/02/22 10:03 Allergy Family History Sister Hypertension Thyroid disorder Brother Thyroid disorder Surgical History H/O wrist surgery History of cholecystectomy History of hip surgery History of tonsillectomy Social History Smoking Status: Never smoker alcohol intake: never substance use type: does not use ROS ROS ED Constitutional Constitutional ED: Reports fatigue, headache(s) and malaise; Denies fever(s) Eyes Eyes: Denies change in vision or diplopia ENT ENT ED: Denies rhinorrhea or sore throat Cardiovascular Cardiovascular: Denies chest pain, leg edema or palpitations Respiratory/Chest Respiratory/Chest: Reports cough, dyspnea, dyspnea on exertion, sputum and other Details: Unknown if orthopnea I do not lay down; sleeps in recliner/chair normally Gastrointestinal Gastrointestinal: Denies abdominal pain, diarrhea, nausea or vomiting Genitourinary Genitourinary ED: Denies dysuria or hematuria Musculoskeletal Musculoskeletal: Denies back pain or neck pain Integumentary Denies abscess or rash Neurologic Neurologic: Reports headache(s); Denies paresthesias or weakness Psychiatric Psychiatric: Denies anxiety or suicidal thoughts EXAM Physical Exam Const Vital Signs: 08/02/22 10:03 08/02/22 10:15 08/02/22 10:15 Temperature 98.6 F 98.6 F 98.6 F Temperature Source Temporal Oral Oral Pulse Rate 103 H 91 91 Respiratory Rate 18 22 H 22 H Respiratory Effort Respiratory Depth Respiratory Pattern Blood Pressure 163/85 H 161/54 H 161/54 H Blood Pressure Mean 111 89 89 Pulse Ox 91 86 86 Oxygen Delivery Method Room Air Room Air Room Air Oxygen Flow Rate (L/min) 08/02/22 10:28 08/02/22 10:18 08/02/22 10:33 Temperature Temperature Source Pulse Rate Respiratory Rate Respiratory Effort Respiratory Depth Respiratory Pattern Blood Pressure Blood Pressure Mean Pulse Ox 94 92 90 Oxygen Delivery Method Nasal Cannula Nasal Cannula Nasal Cannula Oxygen Flow Rate (L/min) 3 3 1 08/02/22 10:42 08/02/22 10:47 08/02/22 11:15 Temperature 98.4 F Temperature Source Oral Pulse Rate 99 99 Respiratory Rate 18 20 H Respiratory Effort Short of Breath Respiratory Depth Normal Respiratory Pattern Tachypnea Blood Pressure 152/81 H Blood Pressure Mean 104 Pulse Ox 94 Oxygen Delivery Method Nasal Cannula Nasal Cannula Oxygen Flow Rate (L/min) 1 1 08/02/22 12:15 Temperature 98.2 F Temperature Source Oral Pulse Rate 84 Respiratory Rate 22 H Respiratory Effort Respiratory Depth Respiratory Pattern Blood Pressure 146/76 H Blood Pressure Mean 99 Pulse Ox 91 Oxygen Delivery Method Nasal Cannula Oxygen Flow Rate (L/min) 1 Positive well nourished and well developed Constitutional Narrative: Well-appearing, no distress General Appearance ED: well developed and NAD HEENT Reports moist mucous membranes normocephalic and atraumatic Eyes PERRL and EOMs intact bilaterally Neck full ROM, no lymphadenopathy, supple and no meningeal signs Resp normal respiratory effort and clear to auscultation bilaterally Cardio regular rate, regular rhythm and peripheral pulses 2+ throughout Rate: Negative for tachycardic Heart Sounds: murmur systolic II/ crescendo-decrescendo GI non-tender and non-distended Auscultation: normoactive bowel sounds Palpation: soft Back/Spine no CVA tenderness General Back: other FROM Extremity normal to inspection and no calf tenderness General Extremety ED: Negative for edema, pulses abnormal or tenderness General Extremity: Negative for edema or pulses abnormal Neuro oriented x3, CN's II-XII intact bilaterally and no sensory deficits noted Sensorium / Orientation: awake and alert Motor Exam: strength 5/5 throughout Skin no rashes or lesions noted and no wounds MDM MDM MDM Narrative Medical decision making narrative: Patient's work-up is unremarkable showing normal labs with a low white blood count, normal BNP, normal troponin, normal EKG, and a two-view chest x-ray which on my interpretation shows no acute infiltrates, just a COPD hyperexpansion pattern. Radiology in agreement. Patient was treated with a albuterol nebulizer which really helped her breathing. At times she dipped down to 89% on room air, but she does have oxygen at home which she was advised to use. She is breathing well and I feel can be treated for a COPD exacerbation likely caused by a viral infection as an outpatient; her COVID and influenza test returned negative. Will give her a dose of Solu-Medrol here and prescribe her prednisone and doxycycline to use as an outpatient with close outpatient follow-up advised. She is comfortable with that plan. Lab Data Attestation: I reviewed the patient's lab results. Labs: Laboratory Results - last 24 hr 08/02/22 08/02/22 08/02/22 10:30 10:30 10:30 WBC 5.7 RBC 4.62 Hgb 14.4 Hct 44.0 MCV 95.2 MCH 31.2 MCHC 32.7 RDW Std Deviation 48.8 H RDW Coeff of Concepcion 13.9 Plt Count 158 MPV 12.0 Immature Gran % (Auto) 0.400 Neut % (Auto) 73.9 H Lymph % (Auto) 15.5 L [place] % (Auto) 7.8 Eos % (Auto) 1.9 Baso % (Auto) 0.5 Absolute Neuts (auto) 4.2 Absolute Lymphs (auto) 0.88 Nucleated RBC % 0 Sodium 139 Potassium 3.7 Chloride 102 Carbon Dioxide 28.0 Anion Gap 9 BUN 12 Creatinine 0.65 Estim Creat Clear Calc 38.54 Est GFR (MDRD) Af Amer 110 Est GFR (MDRD) Non-Af 91 BUN/Creatinine Ratio 18.3 Glucose 97 Calcium 9.2 Troponin I High Sens 13 B-Natriuretic Peptide 53.9 Radiography Diagnostic Testing: Clinical Impression(s) from Imaging Studies Chest X-Ray 08/02/22 12:55 IMPRESSION: 1. COPD Electronically Signed: Tyrone Kirby MD at 13:25 EST Reading Location ID and State: [facility] / [place] , Service support , Rhythm Strip Rhythm Strip: Sinus Rhythm Rate: 95 Ectopy: None EKG Initial EKG: Attestation: I personally reviewed and interpreted this EKG as follows: Interpretation: Sinus Rhythm, No Acute Injury Pattern, LAFB and AV Block (1st deg) Prior: Unchanged Discharge Plan Triage Chief Complaint: Shortness of Breath ED Provider: Arnel Levin Dx/Rx/DC Orders Clinical Impression: Acute exacerbation of chronic obstructive pulmonary disease (COPD), Viral URI with cough Instructions: ED COPD Flare Prescriptions: New prednisone 10 mg tablet 10 mg PO UD Qty: 30 0RF Rx Instructions: Take 4 tablets daily for 3 days, then 3 daily for 3 days, then 2 daily for 3 days, then 1 a day for 3 days doxycycline monohydrate 100 mg capsule 100 mg PO BID Qty: 20 0RF No Action mecobalamin (vitamin B12) 5,000 mcg tablet,disintegrating 10,000 mcg PO DAILY ascorbate calcium (vitamin C) 500 mg tablet 500 mg PO DAILY levothyroxine 25 mcg tablet 25 mcg PO DAILY albuterol sulfate 2.5 mg /3 mL (0.083 %) solution for nebulization 2.5 mg INHALATION BID PRN (Reason: Bronchospasm) albuterol sulfate 90 mcg/actuation HFA aerosol inhaler 2 puff INHALATION BID PRN (Reason: Bronchospasm) PreserVision AREDS 14,320-226-200 [id number]-dd-[id number] capsule 1 cap PO BID fluticasone propionate [Flonase Allergy Relief] 50 mcg/actuation spray,suspension 1 spray intranasal DAILY PRN (Reason: Allergy Symptoms) Rx Instructions: administer into each nostril cholecalciferol (vitamin D3) 1,000 UNIT tablet 3,000 unit PO QHS metoprolol tartrate 25 mg tablet 25 mg PO DAILY peg [id number] 1 DROP bottle 2 drp LEFT EYE Q1H PRN (Reason: DRY EYES) 0RF amiodarone 200 mg tablet 100 mg PO DAILY Qty: 45 3RF Primary Care Provider: Patel Garcia Referrals: Patel Garcia MD [Primary Care Provider] - 3-5 Days (Or your accounting manager cpa if you have 1) Activity Restrictions/Additional Instructions: Wait until tomorrow to start a prednisone prescription, you received a dose while in the emergency department. Wear your oxygen at home all of the time for the next 2 days, if you are doing better then just at night is okay. If you are getting short of breath, use a rescue breathing treatment, or inhaler, with albuterol. Disposition Disposition: Home, Self Care
[2022-08-02] MEDS: Albuterol 2.5 MG/3 ML VIAL.NEB. INHALATION (10:41)
[2022-08-02 10:55] LABS: Absolute Lymphocyte Count 0.88 X10^3/uL (0.83-4.51); Absolute Neutrophil Count 4.2 X10^3/uL (2.0-7.7); Basophil# 0.03 X10^3/uL; Basophil% 0.5 % (0-1); Eosinophil# 0.11 X10^3/uL; Eosinophils% 1.9 % (0-5); Hemoglobin 14.4 g/dL (12.0-15.0); Lymphocyte # 0.88 X10^3/ul (0.83-4.51); Lymphocyte % 15.5 % (19-41); Mean Corp Hgb Conc 32.7 g/dL (32-36); Mean Corpuscular Hgb 31.2 pg (27.0-32.0); Mean Corpuscular Volume 95.2 fL (81-99); Monocyte# 0.44 X10^3/uL; Monocyte% 7.8 % (0-10); NRBC Flagged by Analyzer 0 % (0-5); Neutrophil # 4.19 X10^3/uL (2.7-7.7); Neutrophil % 73.9 % (47-70); Platelet Count 158 K/mm3 (150-450); RBC Distribution Width CV 13.9 % (11.6-14.6); RBC Distribution Width SD 48.8 fl (35.1-43.9); Red Blood Count 4.62 M/mm3 (4.2-5.4); White Blood Count 5.7 K/mm3 (4.4-11.0)
[2022-08-02 11:13] LABS: Anion Gap 9 (5-15); BUN 12 mg/dL (7-18); BUN/Creat Ratio 18.3 RATIO (10-20); Calcium,Total 9.2 mg/dL (8.5-10.1); Chloride 102 mmol/L (98-107); Creatinine, Serum 0.65 mg/dL (0.55-1.02); EST Glomerular Filtration Rate 91 mL/min (>60); Est Glom Filt Rate - Afr Amer 110 mL/min (>60); Estimated Creatinine Clearance 38.54 ml/min; Glucose 97 mg/dL (74-106); Potassium 3.7 mmol/L (3.5-5.1); Sodium Level 139 mmol/L (136-145); Troponin-I HS 13 pg/mL (3.0-54.0)
[2022-08-02 11:21] LABS: BNP,B-Type NATRIURETIC PEPTIDE 53.9 pg/mL (0-100)
--- NOTE | 2022-08-02 12:55 | RAD_ITS ---
STUDY: X-RAY CHEST REASON FOR EXAM: Female, 86 years old. cough, sob TECHNIQUE: PA and lateral views of the chest. COMPARISON: May 09, 2021 FINDINGS: There is hyperinflation of the lungs consistent with chronic obstructive lung disease (COPD). There is no demonstrated pleural abnormality. Normal size heart. Normal mediastinum and kwaku. Normal visualized pulmonary arteries. There is atherosclerotic calcification of the aortic arch with tortuosity. There are diffuse degenerative changes of the visualized thoracic spine. Normal visualized ribs, clavicles, and shoulders. There is no demonstrated abnormality of the visualized soft tissue structures of the upper abdomen. RAD/Chest PA and Lateral IMPRESSION: 1. COPD Electronically Signed: Tyrone Kirby MD at 13:25 EST ,
[2022-08-02] MEDS: predniSONE 20 MG Tablet 40 MG PO (14:23)
== END 2022-08-02 16:43 | disposition home or self-care (01) ==
PROVIDERS: Emergency Provider Emergency Medicine; PCP Family Medicine; Visit Provider Emergency Medicine
DX: J44.1 Chronic obstructive pulmonary disease with (acute) exacerbation (principal); J06.9 Acute upper respiratory infection, unspecified; I10 Essential (primary) hypertension; R06.02 Shortness of breath; Z20.822 Contact with and (suspected) exposure to COVID-19
CPT/HCPCS: 71046; 80048; 83880; 84484; 85025; 87811; 93005; 94640; 99283; A4216

== ENCOUNTER 2023-10-04 09:01 | Emergency (ER) | payer MEDICARE, SELFPAY ==
[2023-10-04] VITALS (17 sets, daily range): BP systolic 117–186; BP diastolic 68–120; PULSE 52–135; RESP 14–26; TEMP 36.2–36.6; O2SAT 88–100; BMI 19.8
--- NOTE | 2023-10-04 09:07 | CT_ITS ---
STUDY: CT HEAD STROKE PROTOCOL W/O CONTRAST INJECTION REASON FOR EXAM: Female, 87 years old. Neuro deficit, acute, stroke suspected RADIATION DOSAGE (If Supplied By Facility): CTDIvol = ( 44.99 ) mGy, DLP = ( 863.6 ) mGycm TECHNIQUE: Transaxial CT imaging of the brain was performed without administration of intravenous contrast material. Individualized dose optimization techniques were used for this CT. COMPARISON: No relevant priors. FINDINGS: Normal soft tissue structures. There is thinning of both right and left parietal-occipital bones questionable prior surgery. This is stable. There is mild cerebral atrophy with widening of the extra-axial spaces and ventricular dilatation. There are areas of decreased attenuation within the white matter tracts of the supratentorial brain, consistent with microvascular disease changes. Normal basal ganglia and thalami. Normal brainstem. Normal cerebellum. There is no intracranial hemorrhage. There is evidence of decreased attenuation in the right frontal lobe in the distribution of the right anterior cerebral artery suggestive of acute ischemic change. Atherosclerotic calcification of the cavernous portions of the internal carotid artery bilaterally. Normal visualized paranasal sinuses. ASPECT score: 8 CT/STROKE Brain/Head without Cont IMPRESSION: Findings suggestive of acute ischemic change involving the right frontal lobe and territory of the right anterior cerebral artery. N.B. : The above Results were Read Back by Jamie Terry MD to Michael Dillon and understanding confirmed on 10/04/2023 09:32:28 (ET). Electronically Signed: Jamie Terry MD at 9:33 EST ,
--- NOTE | 2023-10-04 09:07 | CT_ITS ---
STUDY: CTA HEAD AND NECK WITH CONTRAST REASON FOR EXAM: Female, 87 years old. Neuro deficit, acute, stroke suspected RADIATION DOSAGE (If Supplied By Facility): CTDIvol = ( 12.18 ) mGy, DLP = ( 456.37 ) mGycm TECHNIQUE: CT angiography was performed with a multi-detector CT scanner. Data acquisition was obtained from the skull base through the vertex following intravenous administration of IV 100mL [id number]-[id number]. MIP images were reconstructed from the axial data set. Post-processing of the angiographic images was performed, with multiplanar reformation and 3D reconstruction. Individualized dose optimization techniques were used for this CT. COMPARISON: No relevant priors. FINDINGS: Normal bilateral petrous carotid arteries. There is calcified plaque formation of the right cavernous carotid artery, without a cross-sectional luminal stenosis. There is calcified plaque formation of the left cavernous carotid artery, without a cross-sectional luminal stenosis. Normal right A1 segments of the anterior cerebral artery. Normal left A1 segments of the anterior cerebral artery. Normal intact anterior communicating artery (ACOM). Normal bilateral A2 segments of the anterior cerebral arteries. Normal right M1 and M2 segments of the middle cerebral arteries, with a normal M1 bifurcation. Normal left M1 and M2 segments of the middle cerebral arteries, with a normal M1 bifurcation. Normal right posterior communicating artery (PCOM). Normal left posterior communicating artery (PCOM). Normal bilateral vertebral arteries. Normal basilar artery with a normal basilar bifurcation. The visualized bilateral superior cerebellar (SCA) arteries are normal. Normal bilateral P1, P2 and visualized P3 segments of the posterior cerebral arteries. There is no demonstrated aneurysm of the [place]. AORTIC ARCH: There is atherosclerotic calcific plaque formation of the aortic arch and great vessels arising from the aortic arch, without a hemodynamically significant stenosis. There is a normal origin of the brachiocephalic, left common carotid, and left subclavian arteries. Atherosclerotic plaque formation at the origin of the left subclavian artery and origin of the left common carotid artery. RIGHT CAROTID ARTERIES: Normal right common carotid artery (CCA). Normal right common carotid bulb. There is mild atherosclerotic plaque formation of the origin of the right internal carotid artery with less than 50% cross sectional diameter stenosis. Normal visualized cervical portion of the right internal carotid artery. Normal origin of the right external carotid artery (ECA). LEFT CAROTID ARTERIES: There is atherosclerotic plaque formation of the common carotid artery, but without a hemodynamically significant stenosis. Normal left common carotid bulb. There is mild atherosclerotic plaque formation of the origin of the left internal carotid artery with less than 50% cross sectional diameter stenosis. Normal visualized cervical portion of the left internal carotid artery. Normal origin of the left external carotid artery (ECA). VERTEBRAL ARTERIES: There is enhancement within the bilateral vertebral arteries with a small right vertebral artery, and a dominant left vertebral artery. CT/STROKE CTA Head AND Neck W/Con IMPRESSION: Calcified plaques in the origin of both the right and left internal carotid arteries causing less than 50% narrowing. Small right vertebral artery. N.B. : The above Results were Read Back by Jamie Terry MD to Michael Dillon and understanding confirmed on 10/04/2023 09:38:31 (ET). Electronically Signed: Jamie Terry MD at 9:39 EST ,
[2023-10-04 09:14] LABS: Absolute Lymphocyte Count 1.32 X10^3/uL (0.83-4.51); Absolute Neutrophil Count 9.5 X10^3/uL (2.0-7.7); Basophil# 0.04 X10^3/uL; Basophil% 0.3 % (0-1); Eosinophil# 0.01 X10^3/uL; Eosinophils% 0.1 % (0-5); Hematocrit 47.4 % (37-47); Hemoglobin 15.6 g/dL (12.0-15.0); Lymphocyte # 1.32 X10^3/ul (0.83-4.51); Mean Corp Hgb Conc 32.9 g/dL (32-36); Mean Corpuscular Hgb 31.1 pg (27.0-32.0); Mean Corpuscular Volume 94.4 fL (81-99); Mean Platelet Vol. 11.4 fl (6.2-12.0); Monocyte% 9.1 % (0-10); NRBC Flagged by Analyzer 0 % (0-5); Neutrophil # 9.53 X10^3/uL (2.7-7.7); Neutrophil % 79.2 % (47-70); Platelet Count 190 K/mm3 (150-450); RBC Distribution Width CV 13.4 % (11.6-14.6); RBC Distribution Width SD 46.4 fl (35.1-43.9); Red Blood Count 5.02 M/mm3 (4.2-5.4)
--- NOTE | 2023-10-04 09:16 | ED.VIS.STROK ---
HPI History of Present Illness Chief Complaint: Stroke Alert Informant: patient and EMS Narrative Narrative: 87-year-old female history of chronic atrial fibrillation COPD hypothyroidism and nonrheumatic aortic valve stenosis presenting to the emergency room with a chief complaint of stroke alert. Patient states she went to bed last night around 2200 hrs. She woke between 05 and 0600 hrs. She states that she felt fine when she woke up. Caregiver came to see her today and found her on the floor of her living room unable to move the left side of her body and with slurred speech. EMS called prehospital stroke alert. Patient states she did not injure herself in the fall. She states she is not experiencing any pain. Patient lives in an apartment attached to her daughter. She is able to ambulate without a cane but family encourages her to use 1. She does not drive. She does most of her ADLs by herself. [facility] Medical History Asthma Atrial fibrillation Bilateral carotid bruits Bronchitis Chronic atrial fibrillation Closed left hip fracture COPD (chronic obstructive pulmonary disease) Essential hypertension Fall Fall at home Fracture of femoral neck, left, closed Hypertension Hypothyroidism Nonrheumatic tricuspid (valve) insufficiency Osteoporosis Other secondary pulmonary hypertension Paroxysmal atrial fibrillation Pneumonia Premature atrial contractions Right wrist fracture Thyroid disorder Home Medications cholecalciferol (vitamin D3) 25 mcg (1,000 unit) tablet 3,000 unit PO QHS supplement 01/06/20 [History Last Taken 08/01/22 22:00] peg [id number] 1 %-0.2 %-0.2 % eye drops 2 drp LEFT EYE Q1H PRN DRY EYES 01/27/20 [Rx Last Taken 08/02/22 0800] albuterol sulfate 2.5 mg/3 mL (0.083 %) solution for nebulization 2.5 mg inhalation BID PRN Bronchospasm 10/14/20 [History Last Taken 08/02/22 0800] albuterol sulfate 90 mcg/actuation aerosol inhaler 2 puff inhalation BID PRN Bronchospasm 10/14/20 [History Last Taken 08/02/22 0800] ascorbate calcium (vitamin C) 500 mg tablet 500 mg PO DAILY 10/14/20 [History Last Taken 08/01/22 08:00] levothyroxine 25 mcg tablet 25 mcg PO DAILY 10/14/20 [History Last Taken 08/01/22 08:00] mecobalamin (vitamin B12) 5,000 mcg disintegrating tablet 10,000 mcg PO DAILY 10/14/20 [History Last Taken 08/01/22 08:00] metoprolol tartrate 25 mg tablet 25 mg PO DAILY heart 10/14/20 [History Last Taken 08/01/22 08:00] fluticasone propionate 50 mcg/actuation nasal spray,suspension (Flonase Allergy Relief) 1 spray intranasal DAILY PRN Allergy Symptoms 03/07/22 [History Last Taken Unknown] amiodarone 200 mg tablet 100 mg (1/2 x 200 mg) PO DAILY #45 tabs 07/15/23 [Rx Last Taken Unknown] Allergy/AdvReac Type Severity Reaction Status Date / Time budesonide [From Symbicort] Allergy Unknown Verified 08/02/22 10:03 diltiazem [From Cardizem] Allergy Unknown Verified 08/02/22 10:03 formoterol [From Symbicort] Allergy Unknown Verified 08/02/22 10:03 shellfish derived Allergy Food Verified 08/02/22 10:03 Allergy Family History Sister Hypertension Thyroid disorder Brother Thyroid disorder Surgical History H/O wrist surgery History of cholecystectomy History of hip surgery History of tonsillectomy Social History Smoking Status: Never smoker alcohol intake: never substance use type: does not use ROS ROS ED Constitutional Constitutional ED: Denies chills, fever(s) or weight loss Eyes Eyes: Denies change in vision or diplopia ENT ENT ED: Denies ear pain, rhinorrhea or sore throat Cardiovascular Cardiovascular: Denies chest pain, orthopnea, palpitations or racing heartbeat Respiratory/Chest Respiratory/Chest: Denies cough, dyspnea or orthopnea Gastrointestinal Gastrointestinal: Denies abdominal pain, diarrhea, nausea or vomiting Genitourinary Genitourinary ED: Denies dysuria, hematuria or urinary frequency Musculoskeletal Musculoskeletal: Denies arthralgias or myalgias Integumentary Denies abscess or rash Neurologic Neurologic: Reports headache(s) and weakness Psychiatric Psychiatric: Denies anxiety, depression, suicidal ideation or suicidal thoughts Endocrine Endocrinology: Denies polydipsia, polyphagia or polyuria Allergic/Immunologic Allergic/Immunologic ED: Denies mouth swelling, tongue swelling or urticaria EXAM Physical Exam Const Vital Signs: 10/04/23 09:18 10/04/23 09:18 10/04/23 09:22 Temperature 97.2 F L 97.8 F Temperature Source Temporal Temporal Pulse Rate 135 H 92 Respiratory Rate 26 H 20 H Blood Pressure 155/113 H Blood Pressure Mean 127 Blood Pressure Source Blood Pressure Position Blood Pressure Location Pulse Ox 88 Oxygen Delivery Method Room Air Room Air Oxygen Flow Rate (L/min) 10/04/23 09:24 10/04/23 09:30 10/04/23 09:37 Temperature Temperature Source Pulse Rate 84 70 Respiratory Rate 21 H 16 Blood Pressure 155/113 H 180/87 H 186/120 H Blood Pressure Mean 127 118 142 Blood Pressure Source Blood Pressure Position Blood Pressure Location Pulse Ox 90 97 Oxygen Delivery Method Nasal Cannula Nasal Cannula Oxygen Flow Rate (L/min) 3 2 10/04/23 09:53 10/04/23 10:02 10/04/23 10:17 Temperature Temperature Source Pulse Rate 60 60 Respiratory Rate 21 H 22 H Blood Pressure 172/79 H 129/68 H 121/70 H Blood Pressure Mean 88 87 Blood Pressure Source Monitor Blood Pressure Position Supine Blood Pressure Location Left Arm Pulse Ox 96 97 Oxygen Delivery Method Nasal Cannula Nasal Cannula Oxygen Flow Rate (L/min) 3 3 Positive well nourished and well developed General Appearance ED: well developed HEENT Reports normocephalic, head/scalp atraumatic and moist mucous membranes Eyes PERRL and EOMs intact bilaterally Neck no lymphadenopathy, supple and no JVD Resp normal respiratory effort and clear to auscultation bilaterally Cardio no murmurs Rhythm: abnormal rhythm irregularly irregular GI normal to inspection, nondistended, normoactive bowel sounds and non-tender Palpation: soft Back/Spine no CVA tenderness and normal ROM Extremity General Extremety ED: Negative for edema General Extremity: Negative for edema Neuro oriented x3 [place] Coma Scale: document GCS findings Spontaneous Obeys Commands Oriented 15 Sensorium / Orientation: alert Psych mental status grossly normal Mood & Affect: Negative for depressed or tearful Skin no rashes or lesions noted and no wounds NIHSS NIHSS Initial: 1a Level of Consciousness: 0 1b LOC Questions (Score 2 if aphasic/stupor): 0 1c LOC Commands (Only score 1st attempt): 0 2 Best Gaze (If aphasic, use reflexive mvmts.): 1 3 Visual: 0 4 Facial Palsy: 3 5 Motor Arm Right (UN = amputation/fusion): 0 5 Motor Arm Left: 4 6 Motor Leg Right: 0 6 Motor Leg Left: 3 7 Limb ataxia (Only + if out of proportion): 0 8 Sensory (Aphasia/stupor=0 or 1, coma=2): 2 9 Best Language: 0 10 Dysarthria (mute, coma=2, intubated=UN): 2 11 Extinction and Inattention (only scored if +): 2 Total Score: 17 MDM MDM MDM Narrative Medical decision making narrative: After head CT she was brought back to the resuscitation room. We are able to understand the patient a little clearer in the quiet room. This did provide a delay in trying to determine the onset of symptoms. She believes she woke up at 0530 hrs. and her symptoms began around 0800 hrs. She was assessed by [facility] neurology and the recommendation is for TNK. Antihypertensives were given to ensure we are in the parameters for TNK. Risk benefits were discussed with daughter both by neurology and by this physician. CT the brain demonstrates no intracranial hemorrhage. Please see radiologist read and neurology over read for further details. My independent interpretation of the chest x-ray is no acute process EKG is nonischemic. There is an elevation of her high-sensitivity troponin of 402. Most likely type II. Sanders catheter was placed per thrombolytic protocol. Recommendation from [facility] neurology is the patient be transferred there. Neurology there is requesting a helicopter to expedite out of hospital time. History & Record Review Discussion w/independent historian: EMS personnel, Patient and Family Additional record(s) reviewed:: Prior inpatient record, Prior outpatient record, Prior ED visit and Prior labs Lab Data Attestation: I reviewed the patient's lab results. Labs: Laboratory Results - last 24 hr 10/04/23 09:05 WBC 12.0 H RBC 5.02 Hgb 15.6 H Hct 47.4 H MCV 94.4 MCH 31.1 MCHC 32.9 RDW Std Deviation 46.4 H RDW Coeff of Concepcion 13.4 Plt Count 190 MPV 11.4 Immature Gran % (Auto) 0.300 Neut % (Auto) 79.2 H Lymph % (Auto) 11.0 L [place] % (Auto) 9.1 Eos % (Auto) 0.1 Baso % (Auto) 0.3 Absolute Neuts (auto) 9.5 H Absolute Lymphs (auto) 1.32 Nucleated RBC % 0 PT 14.4 INR 1.1 APTT 32.1 Sodium 135 L Potassium 4.2 Chloride 107 Carbon Dioxide 21.0 Anion Gap 7 BUN 9 Creatinine 0.83 Estim Creat Clear Calc 42.38 Est GFR (MDRD) Af Amer 84 Est GFR (MDRD) Non-Af 69 BUN/Creatinine Ratio 10.9 Glucose 140 H Calcium 9.3 Troponin I High Sens 402 H* Radiography Diagnostic Testing: Clinical Impression(s) from Imaging Studies Brain CT 10/04/23 09:07 IMPRESSION: Findings suggestive of acute ischemic change involving the right frontal lobe and territory of the right anterior cerebral artery. N.B. : The above Results were Read Back by Jamie Terry MD to Michael Dillon and understanding confirmed on 10/04/2023 09:32:28 (ET). Electronically Signed: Jamie Terry MD at 9:33 EST , ADDENDUM: 10/04/23939 IMPRESSION: Findings suggestive of acute ischemic change involving the right frontal lobe and territory of the right anterior cerebral artery. N.B. : The above Results were Read Back by Jamie Terry MD to Michael Dillon and understanding confirmed on 10/04/2023 09:32:28 (ET). Electronically Signed: Jamie Terry MD at 9:33 EST , Head/Neck CTA 10/04/23 09:07 IMPRESSION: Calcified plaques in the origin of both the right and left internal carotid arteries causing less than 50% narrowing. Small right vertebral artery. N.B. : The above Results were Read Back by Jamie Terry MD to Michael Dillon and understanding confirmed on 10/04/2023 09:38:31 (ET). Electronically Signed: Jamie Terry MD at 9:39 EST , ADDENDUM: 10/04/23 0946 IMPRESSION: Calcified plaques in the origin of both the right and left internal carotid arteries causing less than 50% narrowing. Small right vertebral artery. N.B. : The above Results were Read Back by Jamie Terry MD to Michael Dillon and understanding confirmed on 10/04/2023 09:38:31 (ET). Electronically Signed: Jamie Terry MD at 9:39 EST , Chest X-Ray 10/04/23 10:08 IMPRESSION: Essentially stable examination except for focal atelectasis and/or infiltrate in the peripheral lateral aspect of the right middle lobe Electronically Signed: Jamie Terry MD at 10:24 EST , EKG Initial EKG: Attestation: I personally reviewed and interpreted this EKG as follows: Comments: Sinus rhythm first-degree AV block with ventricular rate of 67 bpm Management Discussion w/another healthcare provider: Sole Layer ([facility]), Radiologist and Pharmacist Critical Care Time Critical Care Time: Yes Critical care time (excluding procedures): 30-74 minutes (34), Including time spent:, Discussing w/Patient &/or Family/Dye Can Operator, Discussing w/Consultants ([facility]), Arranging Admission or Transfer and Performing Direct Patient Care at Bedside Discharge Plan Triage Chief Complaint: Stroke Alert ED Provider: Michael Dillon Dx/Rx/DC Orders Clinical Impression: Chronic atrial fibrillation, Chronic diastolic (congestive) heart failure, COPD (chronic obstructive pulmonary disease), Acute ischemic stroke, Elevated troponin Prescriptions: No Action mecobalamin (vitamin B12) 5,000 mcg tablet,disintegrating 10,000 mcg PO DAILY ascorbate calcium (vitamin C) 500 mg tablet 500 mg PO DAILY levothyroxine 25 mcg tablet 25 mcg PO DAILY albuterol sulfate 2.5 mg /3 mL (0.083 %) solution for nebulization 2.5 mg INHALATION BID PRN (Reason: Bronchospasm) albuterol sulfate 90 mcg/actuation HFA aerosol inhaler 2 puff INHALATION BID PRN (Reason: Bronchospasm) fluticasone propionate [Flonase Allergy Relief] 50 mcg/actuation spray,suspension 1 spray intranasal DAILY PRN (Reason: Allergy Symptoms) Rx Instructions: administer into each nostril cholecalciferol (vitamin D3) 1,000 UNIT tablet 3,000 unit PO QHS metoprolol tartrate 25 mg tablet 25 mg PO DAILY peg [id number] 1 DROP bottle 2 drp LEFT EYE Q1H PRN (Reason: DRY EYES) 0RF amiodarone 200 mg tablet 100 mg PO DAILY Qty: 45 3RF Primary Care Provider: Patel Garcia Referrals: Patel Garcia MD [Primary Care Provider] - Disposition Disposition: Acute Care Hospital Discharge Location: [facility]
[2023-10-04 09:25] LABS: International Normalized Ratio 1.1; Partial Thromboplast Time 32.1 Seconds (24.1-36.2); Prothrombin Time (Protime)PT. 14.4 SECONDS (11.7-14.9)
--- OUTSIDE RECORDS SUMMARY | 2023-10-04 09:29 | XMS RPT_ITS | CCD ---
Author Name Unknown Address [address] [place] [address] Organization [facility] Care Team Providers Care Clinical Specialty Rep Name Role Phone Roof SHONNA, Yonas Walker Unavailable Maricarmen Garrett Unavailable Unavailable Allergies Allergy Classification Reported Allergen(s) Allergy Type Date of Onset Reaction(s) Facility (4 sources) budesonide / formoterol; Translations: [SYMBICORT] Drug Allergy 6 Anxiety, Fullness in head [facility] Work Phone: [phone] (4 sources) dilTIAZem Drug Allergy 7 myalgia [facility] Work Phone: [phone] (4 sources) metoprolol Drug Allergy 7 Swelling of face and throat [facility] Work Phone: [phone] (6 sources) NKDA; Translations: [NKDA] allergy to substance 6 [facility] Work Phone: [phone] Medications Completed/Discontinued Medications Medication Drug Class(es) Dates Sig (Normalized) Sig (Original) 200 actuat albuterol 0.09 mg/actuat metered dose inhaler (12 sources) beta2-Adrenergic Agonist Start: 06-28-2016 End: 07-02-2016 PROAIR HFA 108 (90 Base) MCG/ACT AERS as directed ALBUTEROL SULFATE [id number] Catherine Espinoza RN Problems Active Problems Problem Classification Problem Date Documented Da te Episodic/Chronic Cardiac dysrhythmias (8 sources) Persistent atrial fibrillation; Translations: [Atrial fibrillation] Onset: 06-28-2016 07-02-2016 Chronic Essential hypertension (4 sources) Hypertensive disorder; Translations: [Essential (primary) hypertension] Onset: 08-01-2016 08-01-2016 Chronic Heart valve disorders (4 sources) Nonrheumatic tricuspid (valve) insufficiency; Translations: [Nonrheumatic tricuspid (valve) insufficiency] Onset: 09-27-2016 09-27-2016 Chronic Pulmonary heart disease (4 sources) Other secondary pulmonary hypertension; Translations: [Other secondary pulmonary hypertension] Onset: 09-27-2016 09-27-2016 Chronic Unclassified (4 sources) Warfarin therapy started; 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] Onset: 07-02-2016 07-02-2016 Past or Other Problems Problem Classification Problem Date Documented Date Episodic/Chronic Other lower respiratory disease (4 sources) Dyspnea on exertion; Translations: [Other forms of dyspnea] Onset: 09-27-2016 09-27-2016 Episodic Other screening for suspected conditions (not mental disorders or infectious disease) (4 sources) Abnormal electrocardiogram [ECG] [EKG]; Translations: [Abnormal electrocardiogram [ECG] [EKG]] Onset: 07-03-2016 07-03-2016 Episodic Results Test Name Value Interpretation Reference Range Facil ity Vital Signs Date Time Vital Sign Value Performing Clinician García ayala 07-04-2017 13:33-0400 BMI (Body Mass Index) 27.41 kg/m2 Maricarmen Dick [facility] Work Phone: 07-04-2017 13:33-0400 BP Diastolic 84 mm[Hg] [facility] Work Phone: 07-04-2017 13:33-0400 BP Systolic 144 mm[Hg] Maricarmen Dick [facility] Work Phone: 07-04-2017 13:33-0400 Height 170.18 cm [facility] Work Phone: 07-04-2017 13:33-0400 Pulse (Heart Rate) 80 /min Maricarmen Dick [facility] Work Phone: 07-04-2017 13:33-0400 Respiratory Rate 18 /min [facility] Work Phone: 07-04-2017 13:33-0400 Weight 79.38 kg Maricarmen [facility] Work Phone: 12-20-2016 13:17-0400 Heart rate 85 /min Maricarmen Lara [facility] Work Phone: 11-06-2016 14:42-0500 BSA (Body Surface Area) 1.92 m2 Maricarmen Lara [facility] Work Phone: 07-02-2016 09:41-0400 Pulse Oximetry 97 % Maricarmen Lara [facility] Work Phone: Procedures Date Procedure Procedure Detail Performing Clinician Start: 07-09-2017 End: 07-09-2017 Lipid 1996 panel - Serum or Plasma Michael Tovar MD Work Phone: Start: 07-08-2017 End: 07-08-2017 *Hepatic Function Panel Michael Tovar MD Work Phone: Start: 07-04-2017 End: 07-04-2017 RODRI Tovar MD Work Phone: Start: 07-04-2017 End: 07-04-2017 Ecg routine ecg w/least 12 lds w/i&r Michael Tovar MD Work Phone: Start: 07-04-2017 End: 07-04-2017 Follow Up Appt 6 months Michael Tovar MD Work Phone: Start: 07-04-2017 End: 07-09-2017 Thyrotropin [Units/volume] in Serum or Plasma Michael Tovar MD Work Phone: Start: 07-04-2017 End: 07-09-2017 Thyroxine (T4) [Mass/volume] in Serum or Plasma Michael Tovar MD Work Phone: Start: 12-20-2016 End: 12-20-2016 RODRI Tovar MD Work Phone: Start: 12-20-2016 End: 12-20-2016 Ecg routine ecg w/least 12 lds w/i&r Michael Tovar MD Work Phone: Start: 12-20-2016 End: 12-20-2016 Follow Up Appt 6 months Michael Tovar MD Work Phone: Start: 12-20-2016 End: 06-25-2017 Thyrotropin [Units/volume] in Serum or Plasma Michael Tovar MD Work Phone: Start: 12-20-2016 End: 07-04-2017 Thyroxine (T4) [Mass/volume] in Serum or Plasma Michael Tovar MD Work Phone: Start: 11-13-2016 End: 11-14-2016 *SYBIL Tovar MD Work Phone: Start: 11-06-2016 End: 11-07-2016 RODRI Tovar MD Work Phone: Start: 11-06-2016 End: 11-07-2016 Follow Up Appt 1 month Michael Tovar MD Work Phone: Start: 10-30-2016 End: 10-31-2016 Ecg routine ecg w/least 12 lds w/i&r Aminta Martines PA-C Work Phone: Start: 10-19-2016 End: 10-19-2016 Ecg routine ecg w/least 12 lds w/i&r Michael Tovar MD Work Phone: Start: 09-27-2016 End: 10-05-2016 *BMP Michael Tovar MD Work Phone: Start: 09-27-2016 End: 10-15-2016 Cardioversion Michael Tovar MD Work Phone: Start: 09-27-2016 End: 10-15-2016 Chest x-ray Michael Tovar MD Work Phone: Start: 09-27-2016 End: 11-01-2016 RODRI Tovar MD Work Phone: Start: 09-27-2016 End: 11-01-2016 Follow Up Appt 6 months Michael Tovar MD Work Phone: Start: 09-27-2016 End: 10-05-2016 INR in Platelet poor plasma by Coagulation assay Michael Tovar MD Work Phone: Start: 08-14-2016 End: 08-14-2016 Follow Up BP Check Michael Tovar MD Work Phone: Start: 08-06-2016 End: 08-06-2016 RODRI Tovar MD Work Phone: Start: 08-06-2016 End: 08-06-2016 Follow Up Appt 3 months Michael Tovar MD Work Phone: Start: 08-06-2016 End: 08-06-2016 INR in Platelet poor plasma by Coagulation assay Michael Tovar MD Work Phone: Start: 07-16-2016 End: 07-31-2016 Follow Up BP Check Michael Tovar MD Work Phone: Start: 07-02-2016 End: 07-06-2016 *Hepatic Function Panel Michael Tovar MD Work Phone: Start: 07-02-2016 End: 07-02-2016 RODRI Tovar MD Work Phone: Start: 07-02-2016 End: 07-06-2016 Echocardiography Michael Tovar MD Work Phone: Start: 07-02-2016 End: 07-06-2016 INR in Platelet poor plasma by Coagulation assay Michael Tovar MD Work Phone: Start: 07-02-2016 End: 07-06-2016 Lipid 1996 panel - Serum or Plasma Michael Tovar MD Work Phone: Start: 07-02-2016 End: 07-18-2016 Stress Echocardiogram (treadmill) Michael Tovar MD Work Phone: Plan of Treatment Date Care Activity Detail Author Start: 01-13-2018 End: 01-13-2018 Appointment Appointment [facility] Work Phone: Start: 07-10-2017 End: 07-08-2017 *Hepatic Function Panel *Hepatic Function Panel [facility] Work Phone: Start: 07-10-2017 End: 10-31-2017 Lipid panel [AGGREGATE] *Lipid Profile CC PCP [facility] Work Phone: Start: 07-04-2017 End: 07-04-2017 RODRI MACE [facility] Work Phone: Start: 07-04-2017 End: 07-04-2017 Follow Up Appt 6 months Follow Up Appt 6 months [facility] Work Phone: Start: 07-04-2017 End: 07-09-2017 Thyroid stimulating hormone (TSH) *TSH [facility] Work Phone: Start: 07-04-2017 End: 07-09-2017 Thyroxine (T4) *T4 (Total) [facility] Work Phone: Start: 07-04-2017 End: 07-04-2017 Appointment Appointment [facility] Work Phone: Start: 12-20-2016 End: 12-20-2016 RODRI MACE [facility] Work Phone: Start: 12-20-2016 End: 12-20-2016 Ecg routine ecg w/least 12 lds w/i&r EKG (In office) [facility] Work Phone: Start: 12-20-2016 End: 12-20-2016 Follow Up Appt 6 months Follow Up Appt 6 months [facility] Phone: Start: 12-20-2016 End: 06-25-2017 Thyroid stimulating hormone (TSH) *TSH [facility] Work Phone: Start: 12-20-2016 End: 07-04-2017 Thyroxine (T4) *T4 (Total) [facility] Work Phone: Start: 11-13-2016 End: 11-14-2016 *BMP *BMP [facility] Work Phone: Start: 11-06-2016 End: 11-07-2016 RODRI MACE [facility] Work Phone: Start: 11-06-2016 End: 11-07-2016 Follow Up Appt 1 month Follow Up Appt 1 month [facility] Work Phone: Start: 10-30-2016 End: 10-31-2016 Ecg routine ecg w/least 12 lds w/i&r EKG (In office) [facility] Work Phone: Start: 10-19-2016 End: 10-19-2016 Ecg routine ecg w/least 12 lds w/i&r EKG (In office) [facility] Work Phone: Start: 09-27-2016 End: 10-05-2016 *BMP *BMP [facility] Work Phone: Start: 09-27-2016 End: 09-27-2016 Cardioversion Cardioversion [facility] Work Phone: Start: 09-27-2016 End: 10-15-2016 Chest x-ray X-Ray, Chest, PA & Lateral [facility] Work Phone: Start: 09-27-2016 End: 11-01-2016 RODRI MACE [facility] Work Phone: Start: 09-27-2016 End: 11-01-2016 Follow Up Appt 6 months Follow Up Appt 6 months [facility] Work Phone: Start: 09-27-2016 End: 10-05-2016 INR Coag RelTime (PPP) *PT/INR [facility] Work Phone: Start: 08-14-2016 End: 08-14-2016 Follow Up BP Check Follow Up BP Check [facility] Work Phone: Start: 08-06-2016 End: 08-06-2016 RODRI CASTILLON [facility] Work Phone: Start: 08-06-2016 End: 08-06-2016 Follow Up Appt 3 months Follow Up Appt 3 months [facility] Work Phone: Start: 08-06-2016 End: 08-06-2016 INR Coag RelTime (PPP) *PT/INR [facility] Work Phone: Start: 07-16-2016 End: 07-31-2016 Follow Up BP Check Follow Up BP Check [facility] Work Phone: Start: 07-02-2016 End: 07-06-2016 *Hepatic Function Panel *Hepatic Function Panel [facility] Phone: Start: 07-02-2016 End: 07-02-2016 DJN RODRI [facility] Work Phone: Start: 07-02-2016 End: 07-02-2016 Echocardiography Echocardiogram (complete) [facility] Phone: Start: 07-02-2016 End: 07-02-2016 Follow Up Appt 1 month Follow Up Appt 1 month [facility] Phone: Start: 07-02-2016 End: 07-06-2016 INR Coag RelTime (PPP) *PT/INR - Standing Order [facility] Work Phone: Start: 07-02-2016 End: 07-06-2016 Lipid panel [AGGREGATE] *Lipid Profile CC PCP [facility] Work Phone: Start: 07-02-2016 End: 07-02-2016 Stress Echocardiogram (treadmill) Stress Echocardiogram (treadmill) [facility] Phone: Patient Education [facility]TR[facility]%20[facility] Phone: Summary Purpose Family History No Family History Records FoundNo Family History Records FoundNo Family History Records Found Advance Directives No Advanced Directives Records FoundNo Advanced Directives Records FoundNo Advanced Directives Records Found Additional Source Comments INFORMATION SOURCE (unrecogn ized section and content) DATE CREATED AUTHOR AUTHOR'S ORGANIZ ATION 01/15/2021 [facility] DATE CREATED AUTHOR AUTHOR'S ORGANIZ ATION 01/16/2021 [facility] FOR RECORDS PERTAINING TO PATIENTS WHO ARE OR HAVE BEEN ENROLLED IN A CHEMICAL DEPENDENCY/SUBSTANCEABUSE PROGRAM, SOME INFORMATION MAY BE OMITTED. This clinical summary was aggregated from multiple sources. Caution should be exercised in using it in the provision of clinical care. This summary normalizes information from multiple sources, and as a consequence, information in this document may materially change the coding, format and clinical context of patient data. In addition, data may be omitted in some cases. CLINICAL DECISIONS SHOULD BE BASED ON THE PRIMARY CLINICAL RECORDS. [facility] provides no warranty or guarantee of the accuracy or completeness of information in this document.
--- NOTE | 2023-10-04 09:34 | ED.RN ---
updated [facility] 7210
[2023-10-04 09:35] LABS: Anion Gap 7 (5-15); BUN 9 mg/dL (7-18); BUN/Creat Ratio 10.9 RATIO (10-20); Calcium,Total 9.3 mg/dL (8.5-10.1); Chloride 107 mmol/L (98-107); Creatinine, Serum 0.83 mg/dL (0.55-1.02); EST Glomerular Filtration Rate 69 mL/min (>60); Est Glom Filt Rate - Afr Amer 84 mL/min (>60); Estimated Creatinine Clearance 42.38 ml/min; Glucose 140 mg/dL (74-106); Potassium 4.2 mmol/L (3.5-5.1); Sodium Level 135 mmol/L (136-145); Troponin-I HS 402 pg/mL (3.0-54.0)
[2023-10-04] MEDS: Labetalol (Prefilled) 20 MG/4 ML IV (09:46)
[2023-10-04] MEDS: 0.9% Saline Lock 10 ML Syringe IV ×2 (09:52→09:54)
[2023-10-04] MEDS: Tenecteplase 14.4 MG in Syringe 1 EACH 2059.19999999999982 MG IV (09:53)
--- NOTE | 2023-10-04 10:08 | RAD_ITS ---
STUDY: X-RAY CHEST REASON FOR EXAM: Female, 87 years old. Neuro deficit, acute, stroke suspected TECHNIQUE: Single AP portable view of the chest. COMPARISON: Comparison is made with prior study dated August 02, 2022. FINDINGS: EKG electrodes are seen. There is hyperinflation of the lungs consistent with chronic obstructive lung disease (COPD). Stable bibasilar scarring. There now is evidence of focal area of increased markings in the peripheral lateral aspect of the right middle lobe suggestive of either atelectasis and/or early infiltrate. Stable scarring in the upper lobes. There is no demonstrated pleural abnormality. Normal size heart. Normal mediastinum and kwaku. Normal visualized pulmonary arteries. There is atherosclerotic calcification of the aortic arch with tortuosity. There are diffuse degenerative changes of the visualized thoracic spine. Normal visualized ribs, clavicles, and shoulders. There is no demonstrated abnormality of the visualized soft tissue structures of the upper abdomen. RAD/Chest 1 View IMPRESSION: Essentially stable examination except for focal atelectasis and/or infiltrate in the peripheral lateral aspect of the right middle lobe Electronically Signed: Jamie Terry MD at 10:24 EST ,
--- NOTE | 2023-10-04 10:42 | ED.RN ---
CALLED [facility] @ 1013 TO TRANSPORT PT. THEY CALLED US BACK @ 1026 TO DECLINE DUE TO WEATHER. CALLED [facility] FOR GROUND TRANSPORTATION @ 1029, THEY GAVE US AN ETA OF 1200.
[2023-10-04] MEDS: 0.9% Normal Saline (1000mL) 1,000 ML 100 ML IV (10:53)
--- NOTE | 2023-10-04 13:04 | ED.RN ---
[facility] AT [facility]EDSIDE [id number]
== END 2023-10-04 13:06 | disposition short-term general hospital (02) ==
PROVIDERS: Emergency Provider Emergency Medicine; PCP Family Medicine; Visit Provider Emergency Medicine
DX: I63.511 Cerebral infarction due to unspecified occlusion or stenosis of right middle cerebral artery (principal); G81.94 Hemiplegia, unspecified affecting left nondominant side; J44.9 Chronic obstructive pulmonary disease, unspecified; I11.0 Hypertensive heart disease with heart failure; I50.32 Chronic diastolic (congestive) heart failure; I48.20 Chronic atrial fibrillation, unspecified; R47.81 Slurred speech; R77.8 Other specified abnormalities of plasma proteins; E03.9 Hypothyroidism, unspecified; Z79.899 Other long term (current) drug therapy; I65.23 Occlusion and stenosis of bilateral carotid arteries
CPT/HCPCS: 51702; 70450; 70496; 70498; 71045; 80048; 84484; 85025; 85610; 85730; 93005; 96361; 96374; 99285; J3101; J7030; Q9967; A4216